=== PATIENT | male | born 1960 | race Caucasian/White ===

== ENCOUNTER 2019-09-15 07:19 | Outpatient (CLI) | payer MEDICAID, SELFPAY ==
--- NOTE | 2019-09-15 07:27 | FL_ITS ---
WS: [id number] BARIUM SWALLOW WITH FLUOROSCOPY HISTORY: MALIGNANT NEOPLASM OF TONSIL COMPARISON: None available. FLUOROSCOPY TIME: .9 minutes. Patient swallowed the barium mixtures without difficulty. There is cricopharyngeal spasm with very mi ld narrowing of the cervical esophagus at the C5-6 level which was intermittent. No significant steno sis or flow limitation. Barium tablet was swallowed without difficulty. Osteophytes encroach upon the posterior cervical esophagus at C5-6. Tertiary contractions in the mid to distal esophagus. Intermi ttently visualized small hiatal hernia. Postsurgical clips are noted within the anterior soft tissues of the neck. FL/FL barium swallow [id number] IMPRESSION: 1. Minimal cricopharyngeal spasm and small vertebral body osteophytes encroach upon the posterior cervical esophagus at C5-6. No significant limitation of sw allowing. 2. Postsurgical changes in the soft tissues of the neck. 3. Mild esophageal dysmotility. 4. Small reducible hiatal hernia.
--- NOTE | 2019-09-15 07:29 | CT_ITS ---
WS: [id number] CT NECK WITH CONTRAST HISTORY: MALIGNANT NEOPLASM OF TONSIL TECHNIQUE: Contiguous 5 mm axial images are performed through the neck with intravenous contrast. Sag ittal and coronal reformats are also submitted. All CT scans at [facility] use at least o ne of these dose optimization techniques: automated exposure control; mA and/or kV adjustment per pat ient size (includes targeted exams where dose is matched to clinical indication); or iterative recons truction. CONTRAST: CONTRAST: Omnipaque 300; 95 mL IV. DLP: 680.83 mGy.cm COMPARISON: 04/06/2019 Prior RIGHT neck soft tissue dissection and tongue base resection. Similar appearance of the soft tissues of the tongue, oropharynx and hypopharynx and larynx since the prior study. No recurrent mass is identified. Epiglottis is normal position. No abnormality at the t ongue base. Torus tubarius and fossa of Rosenmuller and parapharyngeal fat are normal. No significant lymphadenopathy is identified. Thyroid gland and salivary glands are normally enhancing with no masses. No osseous abnormalities. Mild atrophy at the visualized cerebrum with distal carotid arterial calcifications. Mild mucoperiosteal thickening in the paranasal sinuses. No air-fluid levels. Chronic emphysematous changes. No nodules. No adenopathy in the upper mediastinum. CT/CT neck w con* [id number] IMPRESSION: 1. Postoperative changes of right-sided neck dissection and partial resection of the RIGHT tongue base. 2. No recurrent mass or adenopathy.
[2019-09-15] MEDS: iohexol 300 mg/mL 100 mL Btl IV (07:56)
== END 2019-09-15 07:20 | disposition home or self-care (01) ==
PROVIDERS: Family Provider Internal Medicine; Visit Provider Specialist
DX: C09.9 Malignant neoplasm of tonsil, unspecified (principal); R13.19 Other dysphagia; K44.9 Diaphragmatic hernia without obstruction or gangrene; J39.2 Other diseases of pharynx; M25.78 Osteophyte, vertebrae
CPT/HCPCS: 70491; 74220

== ENCOUNTER 2019-10-06 11:52 | Outpatient (CLI) | payer MEDICAID, SELFPAY ==
[2019-10-06 12:42] LABS: Basophils # 0.1 10^3/uL (0.0-0.1); Basophils % 0.9 %; Eosinophils # 0.2 10^3/uL (0.0-0.8); Eosinophils % 1.8 %; Hematocrit 47.4 % (42.0-52.0); Hemoglobin 14.7 g/dL (11.7-16.6); Lymphocytes # 2.9 10^3/uL (0.8-4.8); Lymphocytes % 30.5 %; Mean Corpuscular Hemoglobin 27.5 pg (28.0-34.0); Mean Corpuscular Volume 88.8 fL (80-94); Monocytes # 0.7 10^3/uL (0.2-0.9); Monocytes % 7.3 %; Neutrophils # 5.5 10^3/uL (1.8-7.7); Neutrophils % 58.6 %; Nucleated Red Blood Cells % 0 %; Platelet Count 142 10^3/cmm (130-400); Red Blood Count 5.34 10^6/uL (4.1-5.3); Red Cell Distribution Width 15.6 % (12.1-15.1); White Blood Count 9.4 10^3/uL (4.0-10.0)
[2019-10-06 13:13] LABS: Alanine Aminotransferase 10 U/L (0-41); Alkaline Phosphatase 103 IU/L (40-130); Anion Gap 9.7 (5-19); Aspartate Amino Transferase 18 U/L (0-40); Blood Urea Nitrogen 9 mg/dL (6-20); Calcium 9.5 mg/dL (8.5-10.5); Carbon Dioxide 33 mmol/L (22-29); Chloride 107 mmol/L (98-107); Globulin 3.4 g/dL (1.3-4.6); Glomerular Filtration Rate 56.5 mL/min (90-130); Glucose 57 mg/dL (65-115); Lactate Dehydrogenase 177 U/L (135-225); Osmolality Calculated 294 mOsm/kg (285-295); Potassium 4.7 mmol/L (3.5-5.1); Sodium 145 mmol/L (136-145); Thyroid Stimulating Hormone 4.83 uIU/mL (0.27-4.20); Total Bilirubin 0.3 mg/dL (0.15-1.2); Total Protein 7.4 g/dL (6.6-8.7)
[2019-10-06 14:14] LABS: Free T4 Free Thyroxine 1.49 ng/dL (0.82-1.77)
--- NOTE | 2019-10-09 10:16 | ONC FU_ITS ---
Dr. Ochoa Patient Follow-Up Note Patient: Apolinar Nix Unit #: [id number]: 1960 Dicatated By: Aman Ochoa M.D.Date of Visit:Oct 06, 2019 Onc Med Follow-up/Prog Note Chief Complaint: Head/neck cancer and CLL. 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 He also has small lymphocytic lymphoma/CLL. He had initially presented with a right neck mass in April of 2011. Biopsies at that time were nondiagnostic. He apparently then failed to return for followup. He was seen again in January of 2012 with a new mass in the right neck area. He was then found on laryngoscopy to have squamous cell cancer involving the right tonsil and base of tongue on the right side. Staging PET/CT scan on 04/14/12 showed an FDG positive mass in the right oropharynx measuring 1.3 x 1.7 x 3.5 cm. There were multiple hypermetabolic necrotic right-sided lymph nodes. There were additional smaller nodes on both sides of the neck which were FDG negative. There are mildly prominent axillary lymph nodes bilaterally, FDG negative, without significant mediastinal or hilar adenopathy noted. There was also questionable abdominal adenopathy, metabolically inactive. The possibility of low grade lymphoma was suggested. His subsequent clinical course was complicated by development of pneumonia, but he did recover. Repeat PET/CT scan on 07/05/12 showed interval progression in the area of the right tonsillar mass. A new FDG avid lymph node was noted in the right lower neck. There are multiple mildly FDG avid lymph nodes in the bilateral cervical, axillary, abdominal, and inguinal regions as well as splenomegaly, and those findings were felt to be suspicious for lymphoma. He underwent right tonsillectomy, partial pharyngectomy, right base of tongue resection and right lymph node dissection on 07/06/12. Pathology showed basaloid type nonkeratinizing squamous cell carcinoma. The primary tumor was measured at 1.7 cm. There was staged p T1, but the report indicates there was tumor present at the margins. There was involvement in 2 of 27 lymph nodes. There was extracapsular extension noted. He also underwent biopsies of superficial and deep left axillary lymph nodes. Pathology from both sites was consistent with small lymphocytic lymphoma/chronic lymphocytic leukemia. He was given postoperative chemoradiation. He completed radiation on 10/13/12 to a total dose of 66 Gy. He completed only 2 cycles of cisplatin. His treatment was complicated by poor oral intake and weight loss, despite having nutritional support via PEG tube. He otherwise tolerated the treatment well. He was then followed on observation/expectant management for the head/neck cancer and the chronic lymphocytic leukemia. He had restaging PET/CT on 10/06/2015. It did show fairly extensive lymphadenopathy extending from the cervical through pelvic sidewall basins. The most prominent sites included a portacaval node measuring 6.5 x 3.2 cm and a subcarinal mass measuring 4.4 x 2.2 cm. The findings were felt to be consistent with recurrent low-grade lymphoma. There was no obvious recurrence of the head/neck cancer. During this time he has had follow-up with Dr. Black. He did have an FNA biopsy of one of the posterior cervical lymph nodes, and it did appear to be consistent with lymphoma. He began a trial of therapy with ibrutinib 420 mg daily on 02/25/2016. His white count did show significant increase after starting ibrutinib, as expected. As of 03/17/2016 it peaked at 94,000, but it then began to decline. Other side effects have included fatigue and altered taste. As of his follow-up visit in December 2016 the white count was just slightly elevated at 13,700 with normal hemoglobin at 14.1 g and slightly low platelet count of 119,000. At that point he appeared to have complete resolution of the peripheral lymphadenopathy and splenomegaly. He continued the ibrutinib at 420 mg daily. He remained on observation/expectant management for the tonsillar cancer. He has some underlying COPD and chronic anxiety/depression. He has had some chronic neck and back pain and he has had chronic insomnia. He has known history of hepatitis C. He completed treatment for it in June 2015. He has no other medical illnesses. He had previous surgery for neck fracture in 2006. He had previously smoked one pack of cigarettes daily. He quit in 2011. He has had some alcohol use in the past, but not heavy. INTERIM HISTORY: In June 2018 he underwent excision of the basal cell carcinoma from the left parietal scalp. As of his follow-up visit on 07/22/2018 there was no evidence of recurrence of the head/neck cancer and no evidence of progression of the CLL. He continued treatment with ibrutinib 420 mg daily. He is seen for a scheduled visit. He indicates that he recently had a follow-up visit with Dr. Black and apparently there were abnormalities noted on his surveillance CT scan, such that he is now scheduled to have further evaluation with PET/CT this Thursday. He has been feeling pretty good, though. His energy is been okay. He is doing light work. ECOG score is 1. Appetite is variable, but he has gained weight. He does not have fever or night sweats. He still has dryness in his mouth and throat, but he is able to swallow as long as he drinks and of water. He does not complain of shortness of breath, cough, or chest pain. He still sometimes has nausea and he occasionally has heartburn. Bowel and bladder function have been okay. He continues to have pain in his neck and back, but it is managed adequately with his pain medication. He has had a few headaches. He occasionally has orthostatic lightheadedness. He has no focal neurologic symptoms. Medications: Albuterol 1 (90 mcg/act) Aerosol, solution Inhalation t.i.d., Famotidine 1 Tablet (of 40 mg) Oral daily, Gabapentin 1 (300 mg) Capsule Oral t.i.d., hydrOXYzine HCl 1 Tablet (of 10 mg) Oral t.i.d., Imbruvica 1 Tablet (of 280 mg) Capsule Oral daily, Marinol 1 Tablet (of 5 mg) Capsule Oral b.i.d. PRN, Metoclopramide HCl 1 Tablet (of 10 mg) Oral t.i.d., Morphine Sulfate ER 1 (30 mg) Tablet, controlled release Oral b.i.d., Ondansetron 8 mg (of 8 mg) Tablet Dispersable Oral t.i.d. PRN, Pravastatin Sodium 1 Tablet (of 40 mg) Oral daily, Senna 1 Tablet (of 8.6 mg) 5x/d, Symbicort 1 (160-4.5 mcg/act) Aerosol Inhalation b.i.d. Allergies: No Known Allergies. Review of Systems: Constitutional - His energy is pretty good. He does light work at home. His appetite is variable. He has gained weight. No fever, chills, hot flashes, or night sweats. ECOG score is 1, ENMT - No sinus congestion/drainage. He has dry mouth and throat. He is able to swallow but he has to drink a lot of water. He has had a recent follow-up visit with Dr. Black, Hematologic/Lymphatic - He bruises easily, Respiratory - No shortness of breath. No cough. No pleuritic pain or hemoptysis, Cardiovascular - No angina pain. No palpitations, Gastrointestinal - He still sometimes has nausea. He has had no vomiting. He occasionally has heartburn. No diarrhea or constipation. No blood in the stool or black stools, Genitourinary (M) - No dysuria or hematuria. No urinary frequency. No urgency or incontinence, Musculoskeletal - He continues to have pain in his neck and back. It is managed adequately with medication, Integumentary - No skin complications, Neurologic - He has had a few headaches. He has occasional orthostatic dizziness. No numbness/paresthesias or other focal neurologic symptoms, Psychiatric - No anxiety or depression. No insomnia. Vital Signs: Performed on Oct 06, 2019 13:27 Height - 74.00 in Weight - 186.6 lbs (HIGH) BSA - 2.11 sq.m BMI - 23.96 Temperature - 97.7 F (LOW) Pulse - 56 /min (LOW) Respiration - 18 /min BP - 126/70 mm(hg) O2 Sat - 93 % (LOW) Pain - 4 Physical Examination: Constitutional - He looks pretty good generally, Eyes - Sclerae nonicteric. Conjunctivae clear, ENMT - Mouth is dry. There are no lesions noted in the oral cavity, Neck - No mass or thyromegaly, Hematologic/Lymphatic - There is no cervical, clavicular, or axillary adenopathy, Respiratory - Lungs show some decreased in air movement with slightly coarse breath sounds bilaterally, Cardiovascular - Heart rhythm is regular. There is no murmur, gallop, or rub noted, Abdomen - Soft. Liver is not enlarged. Spleen is not palpable. There is no abdominal mass or ascites noted. There is no inguinal adenopathy, Extremities - No edema. He has extensive purpura, Neurologic - No focal neurologic deficits noted. Lab/Imaging: Test performed on Oct 06, 2019 12:05 LDH (Total) 177 U/L Sodium 145 mmol/L T4, Free 1.49 ng/dL TSH 4.83 uIU/mL Potassium 4.7 mmol/L Chloride 107 mmol/L CO2 33 mmol/L Anion Gap 9.7 BUN 9 mg/dL Creatinine 1.3 mg/dL Cr Clearance (Est) 73.25 mL/min eGFR 56.5 mL/min Glucose 57 mg/dL Calcium 9.5 mg/dL Protein, Total 7.4 g/dL Albumin 4.0 g/dL Globulin 3.4 g/dL Bilirubin, Total 0.3 mg/dL ALT (SGPT) 10 U/L AST (SGOT) 18 U/L Alkaline Phosphatase 103 IU/L WBC 9.4 10 3/uL RBC 5.34 10 6/uL HGB 14.7 g/dL HCT 47.4 % MCV 88.8 fL MCH 27.5 pg MCHC 31.0 g/dL RDW 15.6 % Platelet Count 142 10 3/cmm MPV 12.0 fL Neutrophils 5.5 10 3/uL Lymphocytes 2.9 10 3/uL Monocytes 0.7 10 3/uL Eosinophils 0.2 10 3/uL Basophils 0.1 10 3/uL Neutrophil % 58.6 % Lymphocyte % 30.5 % Monocyte % 7.3 % Eosinophil % 1.8 % Basophils % 0.9 % Impression: 1. The patient has stage ISHA squamous cell carcinoma of the right tonsil/right base of tongue. He underwent surgical resection in June 2012, and he completed postop chemoradiation in September 2012 to a total radiation dose of 66 Gy. He has been on observation for the head/neck cancer following completion of the chemoradiation. Thus far there has been no evidence of recurrence. 2. He also was found on lymph node biopsy to have evidence of chronic lymphocytic leukemia/well-differentiated lymphoma. He had associated peripheral lymphadenopathy and he also had leukocytosis and mild splenomegaly. During follow-up, he was noted to have progression of the lymphoproliferative disorder. On 02/25/2016 he began a trial of ibrutinib at 420 mg daily. 3. He has additional history of hepatitis C for which he completed treatment in June 2015. He had a very good clinical response to the ibrutinib. Initially his lymphocyte count had increased, as expected, but it subsequently declined, and he also had resolution of peripheral lymphadenopathy and splenomegaly. He complained of mild fatigue with the ibrutinib, and he also reported some anorexia and altered taste. He has otherwise tolerated it well. In June 2018 he underwent excision of a basal cell carcinoma from the left parietal scalp. At that point he was otherwise remained stable clinically and he continued treatment with ibrutinib 420 mg daily. During subsequent follow-up continued to have some difficulty swallowing. He developed fairly extensive purpura on both arms, which I assumed to be related to the ibrutinib. As of his follow-up visit on 07/06/2019 the ibrutinib dosage was decreased to 280 mg daily. At that point he also started levothyroxine for hypothyroidism. Overall, though, he appeared to be doing well clinically with no evidence of progression of the CLL and no obvious recurrence of the head/neck cancer. At this point his clinical status appears stable, though he apparently did have some abnormalities noted on his recent surveillance CT scan with Dr. Black, and he is now scheduled for further evaluation with PET/CT. Plan: He will continue treatment with ibrutinib at 280 mg daily for the CLL. He continues levothyroxine 50 mcg daily. He will have further evaluation as indicated, depending on the PET/CT findings. I will tentatively plan a follow-up visit in 3 months. Signed By: Aman Ochoa M.D. <<Signature on File>>
== END 2019-10-06 11:53 | disposition home or self-care (01) ==
LOC: ONCMED 11:55
PROVIDERS: Family Provider Internal Medicine; PCP Internal Medicine; Visit Provider Internal Medicine Medical Oncology
DX: C91.10 Chronic lymphocytic leukemia of B-cell type not having achieved remission (principal); J44.9 Chronic obstructive pulmonary disease, unspecified; F41.8 Other specified anxiety disorders; G47.00 Insomnia, unspecified; G89.29 Other chronic pain; M54.2 Cervicalgia; E03.9 Hypothyroidism, unspecified; Z79.899 Other long term (current) drug therapy; Z79.51 Long term (current) use of inhaled steroids; Z87.01 Personal history of pneumonia (recurrent); Z92.3 Personal history of irradiation; Z92.21 Personal history of antineoplastic chemotherapy; Z86.19 Personal history of other infectious and parasitic diseases; Z87.891 Personal history of nicotine dependence; Z85.828 Personal history of other malignant neoplasm of skin; Z85.89 Personal history of malignant neoplasm of other organs and systems
CPT/HCPCS: 36415; 80053; 83615; 84439; 84443; 85025; 99214

== ENCOUNTER 2020-01-05 09:17 | Outpatient (CLI) | payer MEDICAID, SELFPAY ==
[2020-01-05 09:57] LABS: Basophils # 0.1 10^3/uL (0.0-0.1); Basophils % 0.8 %; Eosinophils # 0.1 10^3/uL (0.0-0.8); Eosinophils % 1.2 %; Hematocrit 44.9 % (42.0-52.0); Hemoglobin 14.3 g/dL (11.7-16.6); Lymphocytes # 1.7 10^3/uL (0.8-4.8); Lymphocytes % 22.6 %; Mean Corpuscular HGB Conc 31.8 g/dL (30.0-36.0); Mean Corpuscular Hemoglobin 28.4 pg (28.0-34.0); Mean Corpuscular Volume 89.3 fL (80-94); Mean Platelet Volume 12.2 fL (7.4-10.4); Monocytes # 0.6 10^3/uL (0.2-0.9); Monocytes % 7.3 %; Neutrophils # 5.1 10^3/uL (1.8-7.7); Neutrophils % 66.4 %; Nucleated Red Blood Cells % 0 %; Platelet Count 117 10^3/cmm (130-400); Red Blood Count 5.03 10^6/uL (4.1-5.3); Red Cell Distribution Width 15.1 % (12.1-15.1); White Blood Count 7.6 10^3/uL (4.0-10.0)
[2020-01-05 10:24] LABS: Alanine Aminotransferase 10 U/L (0-41); Alkaline Phosphatase 87 IU/L (40-130); Anion Gap 14.4 (5-19); Aspartate Amino Transferase 17 U/L (0-40); Blood Urea Nitrogen 10 mg/dL (6-20); Calcium 9.3 mg/dL (8.5-10.5); Carbon Dioxide 27 mmol/L (22-29); Chloride 104 mmol/L (98-107); Globulin 2.7 g/dL (1.3-4.6); Glomerular Filtration Rate 56.5 mL/min (90-130); Glucose 92 mg/dL (65-115); Lactate Dehydrogenase 168 U/L (135-225); Osmolality Calculated 288 mOsm/kg (285-295); Potassium 4.4 mmol/L (3.5-5.1); Sodium 141 mmol/L (136-145); Total Bilirubin 0.3 mg/dL (0.15-1.2); Total Protein 6.7 g/dL (6.6-8.7)
--- NOTE | 2020-01-09 06:58 | ONC FU_ITS ---
Dr. Ochoa Patient Follow-Up Note Patient: Apolinar Nix Unit #: [id number]: 1960 Dicatated By: Aman Ochoa M.D.Date of Visit:Jan 05, 2020 Onc Med Follow-up/Prog Note Chief Complaint: Head/neck cancer and CLL. 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 He also has small lymphocytic lymphoma/CLL. He had initially presented with a right neck mass in April of 2011. Biopsies at that time were nondiagnostic. He apparently then failed to return for followup. He was seen again in January of 2012 with a new mass in the right neck area. He was then found on laryngoscopy to have squamous cell cancer involving the right tonsil and base of tongue on the right side. Staging PET/CT scan on 04/14/12 showed an FDG positive mass in the right oropharynx measuring 1.3 x 1.7 x 3.5 cm. There were multiple hypermetabolic necrotic right-sided lymph nodes. There were additional smaller nodes on both sides of the neck which were FDG negative. There are mildly prominent axillary lymph nodes bilaterally, FDG negative, without significant mediastinal or hilar adenopathy noted. There was also questionable abdominal adenopathy, metabolically inactive. The possibility of low grade lymphoma was suggested. His subsequent clinical course was complicated by development of pneumonia, but he did recover. Repeat PET/CT scan on 07/05/12 showed interval progression in the area of the right tonsillar mass. A new FDG avid lymph node was noted in the right lower neck. There are multiple mildly FDG avid lymph nodes in the bilateral cervical, axillary, abdominal, and inguinal regions as well as splenomegaly, and those findings were felt to be suspicious for lymphoma. He underwent right tonsillectomy, partial pharyngectomy, right base of tongue resection and right lymph node dissection on 07/06/12. Pathology showed basaloid type nonkeratinizing squamous cell carcinoma. The primary tumor was measured at 1.7 cm. There was staged p T1, but the report indicates there was tumor present at the margins. There was involvement in 2 of 27 lymph nodes. There was extracapsular extension noted. He also underwent biopsies of superficial and deep left axillary lymph nodes. Pathology from both sites was consistent with small lymphocytic lymphoma/chronic lymphocytic leukemia. He was given postoperative chemoradiation. He completed radiation on 10/13/12 to a total dose of 66 Gy. He completed only 2 cycles of cisplatin. His treatment was complicated by poor oral intake and weight loss, despite having nutritional support via PEG tube. He otherwise tolerated the treatment well. He was then followed on observation/expectant management for the head/neck cancer and the chronic lymphocytic leukemia. He had restaging PET/CT on 10/06/2015. It did show fairly extensive lymphadenopathy extending from the cervical through pelvic sidewall basins. The most prominent sites included a portacaval node measuring 6.5 x 3.2 cm and a subcarinal mass measuring 4.4 x 2.2 cm. The findings were felt to be consistent with recurrent low-grade lymphoma. There was no obvious recurrence of the head/neck cancer. During this time he has had follow-up with Dr. Black. He did have an FNA biopsy of one of the posterior cervical lymph nodes, and it did appear to be consistent with lymphoma. He began a trial of therapy with ibrutinib 420 mg daily on 02/25/2016. His white count did show significant increase after starting ibrutinib, as expected. As of 03/17/2016 it peaked at 94,000, but it then began to decline. Other side effects have included fatigue and altered taste. As of his follow-up visit in December 2016 the white count was just slightly elevated at 13,700 with normal hemoglobin at 14.1 g and slightly low platelet count of 119,000. At that point he appeared to have complete resolution of the peripheral lymphadenopathy and splenomegaly. He continued the ibrutinib at 420 mg daily. He remained on observation/expectant management for the tonsillar cancer. He has some underlying COPD and chronic anxiety/depression. He has had some chronic neck and back pain and he has had chronic insomnia. He has known history of hepatitis C. He completed treatment for it in June 2015. He has no other medical illnesses. He had previous surgery for neck fracture in 2006. In June 2018 he underwent excision of the basal cell carcinoma from the left parietal scalp. He had previously smoked one pack of cigarettes daily. He quit in 2011. He has had some alcohol use in the past, but not heavy. INTERIM HISTORY: As of his follow-up visit in June 2019 I had opted to reduce the ibrutinib dosage to 280 mg daily. At that point there was no evidence of recurrence of the head/neck cancer and no evidence of progression of the CLL. Restaging PET/CT on 10/08/2019 showed no evidence for recurrent or residual malignancy. He continued treatment with ibrutinib 280 mg daily. He is seen for a scheduled visit. He has been feeling good generally. He still has some fatigue, but overall his energy is better. His ECOG score is 1. He has good appetite. He has no fever or night sweats. He still sometimes has difficulty swallowing, but it is usually okay as long as he drinks water. He has had some soreness in his throat. He has good appetite. He has no fever or night sweats. He has no shortness of breath, cough, or chest pain. He has no GI or complaints. He has chronic pain, mainly in the neck/shoulder area and back. He has no focal neurologic symptoms. Medications: Albuterol 1 (90 mcg/act) Aerosol, solution Inhalation t.i.d., Famotidine 1 Tablet (of 40 mg) Oral daily, Gabapentin 1 (300 mg) Capsule Oral t.i.d., hydrOXYzine HCl 1 Tablet (of 10 mg) Oral t.i.d., Imbruvica 1 Tablet (of 280 mg) Capsule Oral daily, Levothyroxine Sodium 1 Tablet (of 50 mcg) Oral daily, Marinol 1 Tablet (of 5 mg) Capsule Oral b.i.d. PRN, Metoclopramide HCl 1 Tablet (of 10 mg) Oral t.i.d., Mirtazapine 1 (45 mg) Tablet Oral at bedtime, Morphine Sulfate ER 1 (30 mg) Tablet, controlled release Oral b.i.d., Ondansetron 8 mg (of 8 mg) Tablet Dispersable Oral t.i.d. PRN, Pravastatin Sodium 1 Tablet (of 40 mg) Oral daily, Senna 1 Tablet (of 8.6 mg) 5x/d, Symbicort 1 (160-4.5 mcg/act) Aerosol Inhalation b.i.d. Allergies: No Known Allergies. Review of Systems: Constitutional - His energy is better. He is able to do some light work. Appetite is good and weight is stable. No fever, night sweats, or hot flashes. ECOG score is 1, ENMT - No sinus congestion/drainage. No mouth sores. No sore throat. He has some difficulty swallowing, Hematologic/Lymphatic - He bruises very easily. No other bleeding, Respiratory - No shortness of breath. No cough. No pleuritic pain or hemoptysis, Cardiovascular - No angina pain. No palpitations, Gastrointestinal - No nausea or vomiting. No heartburn or acid reflux. No diarrhea or constipation. No blood in the stool or black stools, Genitourinary (M) - No dysuria or hematuria. No urinary frequency. No urgency or incontinence, Musculoskeletal - He has pain in his neck and shoulder area, and he has back pain. It is adequately managed with medication, Integumentary - No skin rash, Neurologic - No headache. He sometimes has dizziness. No numbness or tingling. No other focal neurologic symptoms, Psychiatric - He sometimes gets anxious. No depression. No insomnia. Vital Signs: Performed on Jan 05, 2020 11:16 Height - 74.00 in Weight - 185.8 lbs (LOW) BSA - 2.11 sq.m BMI - 23.86 Temperature - 98.0 F (LOW) Pulse - 53 /min (LOW) Respiration - 20 /min BP - 126/73 mm(hg) O2 Sat - 95 % (LOW) Pain - 4 Physical Examination: Constitutional - He looks pretty good generally, Eyes - Sclerae nonicteric. Conjunctivae clear, ENMT - Mouth is dry. There are no lesions noted in the oral cavity, Hematologic/Lymphatic - There is no cervical, clavicular, or axillary adenopathy, Respiratory - Lungs sound clear with diminished air movement bilaterally, Cardiovascular - Heart rhythm is regular with a bradycardia. There is no murmur, gallop, or rub noted, Abdomen - Soft. Liver is not enlarged. Spleen is not palpable. There is no abdominal mass or ascites noted. There is no inguinal adenopathy, Extremities - No edema. He has extensive purpura, Neurologic - No focal neurologic deficits noted. Lab/Imaging: Test performed on Jan 05, 2020 09:34 LDH (Total) 168 U/L Sodium 141 mmol/L Potassium 4.4 mmol/L Chloride 104 mmol/L CO2 27 mmol/L Anion Gap 14.4 BUN 10 mg/dL Creatinine 1.3 mg/dL Cr Clearance (Est) 72.93 mL/min eGFR 56.5 mL/min Glucose 92 mg/dL Calcium 9.3 mg/dL Protein, Total 6.7 g/dL Albumin 4.0 g/dL Globulin 2.7 g/dL Bilirubin, Total 0.3 mg/dL ALT (SGPT) 10 U/L AST (SGOT) 17 U/L Alkaline Phosphatase 87 IU/L WBC 7.6 10 3/uL RBC 5.03 10 6/uL HGB 14.3 g/dL HCT 44.9 % MCV 89.3 fL MCH 28.4 pg MCHC 31.8 g/dL RDW 15.1 % Platelet Count 117 10 3/cmm MPV 12.2 fL Neutrophils 5.1 10 3/uL Lymphocytes 1.7 10 3/uL Monocytes 0.6 10 3/uL Eosinophils 0.1 10 3/uL Basophils 0.1 10 3/uL Neutrophil % 66.4 % Lymphocyte % 22.6 % Monocyte % 7.3 % Eosinophil % 1.2 % Basophils % 0.8 % NRBC % 0 % Impression: 1. The patient has stage ISHA squamous cell carcinoma of the right tonsil/right base of tongue. He underwent surgical resection in June 2012, and he completed postop chemoradiation in September 2012 to a total radiation dose of 66 Gy. He has been on observation for the head/neck cancer following completion of the chemoradiation. Thus far there has been no evidence of recurrence. 2. He also was found on lymph node biopsy to have evidence of chronic lymphocytic leukemia/well-differentiated lymphoma. He had associated peripheral lymphadenopathy and he also had leukocytosis and mild splenomegaly. During follow-up, he was noted to have progression of the lymphoproliferative disorder. On 02/25/2016 he began a trial of ibrutinib at 420 mg daily. 3. He has additional history of hepatitis C for which he completed treatment in June 2015. He had a very good clinical response to the ibrutinib. Initially his lymphocyte count had increased, as expected, but it subsequently declined, and he also had resolution of peripheral lymphadenopathy and splenomegaly. He complained of mild fatigue with the ibrutinib, and he also reported some anorexia and altered taste. He has otherwise tolerated it well. In June 2018 he underwent excision of a basal cell carcinoma from the left parietal scalp. At that point he was otherwise remained stable clinically and he continued treatment with ibrutinib 420 mg daily. During subsequent follow-up continued to have some difficulty swallowing. He developed fairly extensive purpura on both arms, which I assumed to be related to the ibrutinib. As of his follow-up visit on 07/06/2019 the ibrutinib dosage was decreased to 280 mg daily. At that point he also started levothyroxine for hypothyroidism. During subsequent follow-up he had been feeling somewhat better generally. Restaging PET/CT in September 2019 showed no evidence of residual or recurrent malignancy. Overall, he appears to be doing well clinically with no evidence of disease progression. Plan: He will continue treatment with ibrutinib at 280 mg daily for the CLL. I will see him again in 3 months. Signed By: Aman Ochoa M.D. <<Signature on File>>
== END 2020-01-05 09:18 | disposition home or self-care (01) ==
PROVIDERS: PCP Internal Medicine; Visit Provider Internal Medicine Medical Oncology
DX: C91.10 Chronic lymphocytic leukemia of B-cell type not having achieved remission (principal); Z85.818 Personal history of malignant neoplasm of other sites of lip, oral cavity, and pharynx; Z85.828 Personal history of other malignant neoplasm of skin; Z92.3 Personal history of irradiation; Z79.899 Other long term (current) drug therapy
CPT/HCPCS: 80053; 83615; 85025; 99214

== ENCOUNTER 2020-04-12 14:55 | Outpatient (CLI) | payer MEDICAID, SELFPAY ==
[2020-04-12 15:28] LABS: Basophils # 0.1 10^3/uL (0.0-0.1); Eosinophils # 0.1 10^3/uL (0.0-0.8); Eosinophils % 0.7 %; Hematocrit 45.6 % (42.0-52.0); Hemoglobin 14.5 g/dL (11.7-16.6); Lymphocytes # 2.5 10^3/uL (0.8-4.8); Lymphocytes % 24.3 %; Mean Corpuscular HGB Conc 31.8 g/dL (30.0-36.0); Mean Corpuscular Hemoglobin 28.7 pg (28.0-34.0); Mean Corpuscular Volume 90.3 fL (80-94); Mean Platelet Volume 11.8 fL (7.4-10.4); Monocytes # 0.6 10^3/uL (0.2-0.9); Monocytes % 6.2 %; Neutrophils # 6.58 10^3/uL (1.8-7.7); Neutrophils % 65.2 %; Nucleated Red Blood Cells % 0 %; Platelet Count 140 10^3/cmm (130-400); Red Blood Count 5.05 10^6/uL (4.1-5.3); Red Cell Distribution Width 14.5 % (12.1-15.1); White Blood Count 10.1 10^3/uL (4.0-10.0)
[2020-04-12 16:16] LABS: Alanine Aminotransferase 12 U/L (0-41); Albumin Level 4.2 g/dL (3.5-5.2); Alkaline Phosphatase 103 IU/L (40-130); Anion Gap 14.3 (5-19); Aspartate Amino Transferase 19 U/L (0-40); Blood Urea Nitrogen 9 mg/dL (8-23); Calcium 9.2 mg/dL (8.5-10.5); Carbon Dioxide 28 mmol/L (22-29); Chloride 104 mmol/L (98-107); Globulin 2.9 g/dL (1.3-4.6); Glomerular Filtration Rate 44.3 mL/min (90-130); Glucose 66 mg/dL (65-115); Osmolality Calculated 291 mOsm/kg (285-295); Potassium 4.3 mmol/L (3.5-5.1); Sodium 142 mmol/L (136-145); Thyroid Stimulating Hormone 5.63 uIU/mL (0.27-4.20); Total Bilirubin 0.3 mg/dL (0.15-1.2); Total Protein 7.1 g/dL (6.6-8.7)
[2020-04-12 16:36] LABS: Lactate Dehydrogenase 224 U/L (135-225)
--- NOTE | 2020-04-12 19:55 | ONC FU_ITS ---
Dr. Ochoa Patient Follow-Up Note Patient: Apolinar Nix Unit #: [id number]: 1960 Dicatated By: Aman Ochoa M.D.Date of Visit:Apr 12, 2020 Onc Med Follow-up/Prog Note Chief Complaint: Head/neck cancer and CLL. 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 He also has small lymphocytic lymphoma/CLL. He had initially presented with a right neck mass in April of 2011. Biopsies at that time were nondiagnostic. He apparently then failed to return for followup. He was seen again in January of 2012 with a new mass in the right neck area. He was then found on laryngoscopy to have squamous cell cancer involving the right tonsil and base of tongue on the right side. Staging PET/CT scan on 04/14/12 showed an FDG positive mass in the right oropharynx measuring 1.3 x 1.7 x 3.5 cm. There were multiple hypermetabolic necrotic right-sided lymph nodes. There were additional smaller nodes on both sides of the neck which were FDG negative. There are mildly prominent axillary lymph nodes bilaterally, FDG negative, without significant mediastinal or hilar adenopathy noted. There was also questionable abdominal adenopathy, metabolically inactive. The possibility of low grade lymphoma was suggested. His subsequent clinical course was complicated by development of pneumonia, but he did recover. Repeat PET/CT scan on 07/05/12 showed interval progression in the area of the right tonsillar mass. A new FDG avid lymph node was noted in the right lower neck. There are multiple mildly FDG avid lymph nodes in the bilateral cervical, axillary, abdominal, and inguinal regions as well as splenomegaly, and those findings were felt to be suspicious for lymphoma. He underwent right tonsillectomy, partial pharyngectomy, right base of tongue resection and right lymph node dissection on 07/06/12. Pathology showed basaloid type nonkeratinizing squamous cell carcinoma. The primary tumor was measured at 1.7 cm. There was staged p T1, but the report indicates there was tumor present at the margins. There was involvement in 2 of 27 lymph nodes. There was extracapsular extension noted. He also underwent biopsies of superficial and deep left axillary lymph nodes. Pathology from both sites was consistent with small lymphocytic lymphoma/chronic lymphocytic leukemia. He was given postoperative chemoradiation. He completed radiation on 10/13/12 to a total dose of 66 Gy. He completed only 2 cycles of cisplatin. His treatment was complicated by poor oral intake and weight loss, despite having nutritional support via PEG tube. He otherwise tolerated the treatment well. He was then followed on observation/expectant management for the head/neck cancer and the chronic lymphocytic leukemia. He had restaging PET/CT on 10/06/2015. It did show fairly extensive lymphadenopathy extending from the cervical through pelvic sidewall basins. The most prominent sites included a portacaval node measuring 6.5 x 3.2 cm and a subcarinal mass measuring 4.4 x 2.2 cm. The findings were felt to be consistent with recurrent low-grade lymphoma. There was no obvious recurrence of the head/neck cancer. During this time he has had follow-up with Dr. Black. He did have an FNA biopsy of one of the posterior cervical lymph nodes, and it did appear to be consistent with lymphoma. He began a trial of therapy with ibrutinib 420 mg daily on 02/25/2016. His white count did show significant increase after starting ibrutinib, as expected. As of 03/17/2016 it peaked at 94,000, but it then began to decline. Other side effects have included fatigue and altered taste. As of his follow-up visit in December 2016 the white count was just slightly elevated at 13,700 with normal hemoglobin at 14.1 g and slightly low platelet count of 119,000. At that point he appeared to have complete resolution of the peripheral lymphadenopathy and splenomegaly. He continued the ibrutinib at 420 mg daily. He remained on observation/expectant management for the tonsillar cancer. He has some underlying COPD and chronic anxiety/depression. He has had some chronic neck and back pain and he has had chronic insomnia. He has known history of hepatitis C. He completed treatment for it in June 2015. He has no other medical illnesses. He had previous surgery for neck fracture in 2006. In June 2018 he underwent excision of the basal cell carcinoma from the left parietal scalp. He had previously smoked one pack of cigarettes daily. He quit in 2011. He has had some alcohol use in the past, but not heavy. INTERIM HISTORY: As of his follow-up visit in June 2019 I had opted to reduce the ibrutinib dosage to 280 mg daily. At that point there was no evidence of recurrence of the head/neck cancer and no evidence of progression of the CLL. Restaging PET/CT on 10/08/2019 showed no evidence for recurrent or residual malignancy. He continued treatment with ibrutinib 280 mg daily. He is seen for a scheduled visit. He has been feeling pretty good generally. He still has limited activity, but he is able to do light work. ECOG score is 1. He has good appetite. He has no fever or night sweats. He reports having some issues with his throat, mainly hurting after he swallows quite a bit. He really does not have difficulty swallowing, though. He has no shortness of breath, cough, or chest pain. He currently has no GI or complaints. He has chronic pain. It is mostly now in the neck and shoulders. It is pretty well controlled with his medication. He does not complain of headache. He has lightheadedness if he gets up too fast. He has no focal neurologic symptoms. He does have a lot of bruising. He has had no other bleeding, though. Medications: Albuterol 1 (90 mcg/act) Aerosol, solution Inhalation t.i.d., Famotidine 1 Tablet (of 40 mg) Oral daily, Gabapentin 1 (300 mg) Capsule Oral t.i.d., hydrOXYzine HCl 1 Tablet (of 10 mg) Oral t.i.d., Imbruvica 1 Tablet (of 280 mg) Capsule Oral daily, Levothyroxine Sodium 1 Tablet (of 50 mcg) Oral daily, Marinol 1 Tablet (of 5 mg) Capsule Oral b.i.d. PRN, Metoclopramide HCl 1 Tablet (of 10 mg) Oral t.i.d., Mirtazapine 1 (45 mg) Tablet Oral at bedtime, Morphine Sulfate ER 1 (30 mg) Tablet, controlled release Oral b.i.d., Ondansetron 8 mg (of 8 mg) Tablet Dispersable Oral t.i.d. PRN, Pravastatin Sodium 1 Tablet (of 40 mg) Oral daily, Senna 1 Tablet (of 8.6 mg) 5x/d, Symbicort 1 (160-4.5 mcg/act) Aerosol Inhalation b.i.d. Allergies: No Known Allergies. Review of Systems: Constitutional - He has been feeling pretty good generally, though he still has limited activity. Appetite is good and weight is stable. No fever, night sweats, or hot flashes. ECOG score is 1, ENMT - No sinus congestion/drainage. No mouth sores. No difficulty swallowing, but he does report that he has some hurting in his throat after he has been swallowing quite a bit, Hematologic/Lymphatic - He has a lot of bruising but not other bleeding, Respiratory - No shortness of breath. No cough. No pleuritic pain or hemoptysis, Cardiovascular - No angina pain. No palpitations, Gastrointestinal - No nausea or vomiting. He recently had heartburn, but it was associated with eating chili. No diarrhea or constipation. No blood in the stool or black stools, Genitourinary (M) - No dysuria or hematuria. No urinary frequency. No urgency or incontinence, Musculoskeletal - He has chronic pain. It is mostly now in the neck and shoulders. It is pretty well controlled with medication, Integumentary - No skin rash, Neurologic - No headache. He has lightheadedness if he gets up too fast. No numbness or tingling. No other focal neurologic symptoms, Psychiatric - No anxiety or depression. No insomnia. Vital Signs: Performed on Apr 12, 2020 16:18 Height - 74.00 in Weight - 188.6 lbs (HIGH) BSA - 2.12 sq.m BMI - 24.21 Temperature - 97.6 F (LOW) Pulse - 56 /min (LOW) Respiration - 20 /min BP - 147/86 mm(hg) (HIGH) O2 Sat - 95 % (LOW) Pain - 4 Physical Examination: Constitutional - He looks pretty good generally, Eyes - Sclerae nonicteric. Conjunctivae clear, ENMT - Mouth is dry. There are no lesions noted in the oral cavity, Hematologic/Lymphatic - There is no cervical, clavicular, or axillary adenopathy noted, Respiratory - Lungs sound clear with diminished air movement bilaterally, Cardiovascular - Heart rhythm is regular. There is no murmur, gallop, or rub noted, Abdomen - Soft. Liver is not enlarged. Spleen is not palpable. There is no abdominal mass or ascites noted. There is no inguinal adenopathy, Extremities - No edema. He has extensive purpura on the arms, Neurologic - No focal neurologic deficits noted. Lab/Imaging: Test performed on Apr 12, 2020 15:05 LDH (Total) 224 U/L Sodium 142 mmol/L TSH 5.63 uIU/mL Potassium 4.3 mmol/L Chloride 104 mmol/L CO2 28 mmol/L Anion Gap 14.3 BUN 9 mg/dL Creatinine 1.6 mg/dL Cr Clearance (Est) 59.4100 mL/min eGFR 44.3 mL/min Glucose 66 mg/dL Osmolality - Calculated 291 mOsm/kg Calcium 9.2 mg/dL Protein, Total 7.1 g/dL Albumin 4.2 g/dL Globulin 2.9 g/dL Bilirubin, Total 0.3 mg/dL ALT (SGPT) 12 U/L AST (SGOT) 19 U/L Alkaline Phosphatase 103 IU/L WBC 10.1 10 3/uL RBC 5.05 10 6/uL HGB 14.5 g/dL HCT 45.6 % MCV 90.3 fL MCH 28.7 pg MCHC 31.8 g/dL RDW 14.5 % Platelet Count 140 10 3/cmm MPV 11.8 fL Neutrophils 6.58 10 3/uL Lymphocytes 2.5 10 3/uL Monocytes 0.6 10 3/uL Eosinophils 0.1 10 3/uL Basophils 0.1 10 3/uL Neutrophil % 65.2 % Lymphocyte % 24.3 % Monocyte % 6.2 % Eosinophil % 0.7 % Basophils % 1.0 % NRBC % 0 % Impression: 1. The patient has stage ISHA squamous cell carcinoma of the right tonsil/right base of tongue. He underwent surgical resection in June 2012, and he completed postop chemoradiation in September 2012 to a total radiation dose of 66 Gy. He has been on observation for the head/neck cancer following completion of the chemoradiation. Thus far there has been no evidence of recurrence. 2. He also was found on lymph node biopsy to have evidence of chronic lymphocytic leukemia/well-differentiated lymphoma. He had associated peripheral lymphadenopathy and he also had leukocytosis and mild splenomegaly. During follow-up, he was noted to have progression of the lymphoproliferative disorder. On 02/25/2016 he began a trial of ibrutinib at 420 mg daily. 3. He has additional history of hepatitis C for which he completed treatment in June 2015. He had a very good clinical response to the ibrutinib. Initially his lymphocyte count had increased, as expected, but it subsequently declined, and he also had resolution of peripheral lymphadenopathy and splenomegaly. He complained of mild fatigue with the ibrutinib, and he also reported some anorexia and altered taste. He has otherwise tolerated it well. In June 2018 he underwent excision of a basal cell carcinoma from the left parietal scalp. At that point he was otherwise remained stable clinically and he continued treatment with ibrutinib 420 mg daily. During subsequent follow-up continued to have some difficulty swallowing. He developed fairly extensive purpura on both arms, which I assumed to be related to the ibrutinib. As of his follow-up visit on 07/06/2019 the ibrutinib dosage was decreased to 280 mg daily. At that point he also started levothyroxine for hypothyroidism. Restaging PET/CT in September 2019 showed no evidence of residual or recurrent malignancy. He continued ibrutinib at 280 mg daily, and he continued on observation for the tonsillar cancer. During subsequent follow-up he has been doing well clinically. He has continued to tolerate treatment well, and thus far there has been no evidence of recurrence of either malignancy. Plan: He continues treatment with ibrutinib at 280 mg daily for the CLL. He remains on observation/expectant management for the head/neck cancer. He will be scheduled for a follow-up visit in 3 months. Signed By: Aman Ochoa M.D. <<Signature on File>>
== END 2020-04-12 14:56 | disposition home or self-care (01) ==
LOC: ONCMED 14:57
PROVIDERS: PCP Internal Medicine; Visit Provider Internal Medicine Medical Oncology
DX: C91.10 Chronic lymphocytic leukemia of B-cell type not having achieved remission (principal); E03.9 Hypothyroidism, unspecified; Z85.818 Personal history of malignant neoplasm of other sites of lip, oral cavity, and pharynx; Z85.828 Personal history of other malignant neoplasm of skin; Z92.3 Personal history of irradiation; Z79.899 Other long term (current) drug therapy; Z86.19 Personal history of other infectious and parasitic diseases
CPT/HCPCS: 80053; 83615; 84443; 85025; 99214

== ENCOUNTER 2020-07-30 12:07 | Outpatient (CLI) | payer MEDICAID, SELFPAY ==
[2020-07-30 12:45] LABS: Basophils # 0.1 10^3/uL (0.0-0.1); Basophils % 0.7 %; Eosinophils % 0.2 %; Hematocrit 47.9 % (42.0-52.0); Hemoglobin 15.1 g/dL (11.7-16.6); Lymphocytes # 2.1 10^3/uL (0.8-4.8); Lymphocytes % 24.2 %; Mean Corpuscular HGB Conc 31.5 g/dL (30.0-36.0); Mean Corpuscular Hemoglobin 28.4 pg (28.0-34.0); Mean Corpuscular Volume 90.2 fL (80-94); Mean Platelet Volume 11.7 fL (7.4-10.4); Monocytes # 0.5 10^3/uL (0.2-0.9); Neutrophils # 5.74 10^3/uL (1.8-7.7); Neutrophils % 67.3 %; Nucleated Red Blood Cells % 0 %; Platelet Count 144 10^3/cmm (130-400); Red Blood Count 5.31 10^6/uL (4.1-5.3); Red Cell Distribution Width 14.6 % (12.1-15.1); White Blood Count 8.5 10^3/uL (4.0-10.0)
[2020-07-30 13:24] LABS: Alanine Aminotransferase 9 U/L (0-41); Albumin Level 4.2 g/dL (3.5-5.2); Alkaline Phosphatase 104 IU/L (40-130); Anion Gap 12.6 (5-19); Aspartate Amino Transferase 15 U/L (0-40); Blood Urea Nitrogen 11 mg/dL (8-23); Calcium 9.4 mg/dL (8.5-10.5); Carbon Dioxide 29 mmol/L (22-29); Chloride 102 mmol/L (98-107); Globulin 2.7 g/dL (1.3-4.6); Glomerular Filtration Rate 61.8 mL/min (90-130); Glucose 80 mg/dL (65-115); Lactate Dehydrogenase 175 U/L (135-225); Osmolality Calculated 286 mOsm/kg (285-295); Potassium 4.6 mmol/L (3.5-5.1); Sodium 139 mmol/L (136-145); Thyroid Stimulating Hormone 4.46 uIU/mL (0.27-4.20); Total Bilirubin 0.3 mg/dL (0.15-1.2); Total Protein 6.9 g/dL (6.6-8.7)
--- NOTE | 2020-08-03 18:42 | ONC FU_ITS ---
Dr. Ochoa Patient Follow-Up Note Patient: Apolinar Nix Unit #: [id number]: 1960 Dicatated By: Aman Ochoa M.D.Date of Visit:Jul 30, 2020 Onc Med Follow-up/Prog Note Chief Complaint: Head/neck cancer and CLL. 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 He also has small lymphocytic lymphoma/CLL. He had initially presented with a right neck mass in April of 2011. Biopsies at that time were nondiagnostic. He apparently then failed to return for followup. He was seen again in January of 2012 with a new mass in the right neck area. He was then found on laryngoscopy to have squamous cell cancer involving the right tonsil and base of tongue on the right side. Staging PET/CT scan on 04/14/12 showed an FDG positive mass in the right oropharynx measuring 1.3 x 1.7 x 3.5 cm. There were multiple hypermetabolic necrotic right-sided lymph nodes. There were additional smaller nodes on both sides of the neck which were FDG negative. There are mildly prominent axillary lymph nodes bilaterally, FDG negative, without significant mediastinal or hilar adenopathy noted. There was also questionable abdominal adenopathy, metabolically inactive. The possibility of low grade lymphoma was suggested. His subsequent clinical course was complicated by development of pneumonia, but he did recover. Repeat PET/CT scan on 07/05/12 showed interval progression in the area of the right tonsillar mass. A new FDG avid lymph node was noted in the right lower neck. There are multiple mildly FDG avid lymph nodes in the bilateral cervical, axillary, abdominal, and inguinal regions as well as splenomegaly, and those findings were felt to be suspicious for lymphoma. He underwent right tonsillectomy, partial pharyngectomy, right base of tongue resection and right lymph node dissection on 07/06/12. Pathology showed basaloid type nonkeratinizing squamous cell carcinoma. The primary tumor was measured at 1.7 cm. There was staged p T1, but the report indicates there was tumor present at the margins. There was involvement in 2 of 27 lymph nodes. There was extracapsular extension noted. He also underwent biopsies of superficial and deep left axillary lymph nodes. Pathology from both sites was consistent with small lymphocytic lymphoma/chronic lymphocytic leukemia. He was given postoperative chemoradiation. He completed radiation on 10/13/12 to a total dose of 66 Gy. He completed only 2 cycles of cisplatin. His treatment was complicated by poor oral intake and weight loss, despite having nutritional support via PEG tube. He otherwise tolerated the treatment well. He was then followed on observation/expectant management for the head/neck cancer and the chronic lymphocytic leukemia. He had restaging PET/CT on 10/06/2015. It did show fairly extensive lymphadenopathy extending from the cervical through pelvic sidewall basins. The most prominent sites included a portacaval node measuring 6.5 x 3.2 cm and a subcarinal mass measuring 4.4 x 2.2 cm. The findings were felt to be consistent with recurrent low-grade lymphoma. There was no obvious recurrence of the head/neck cancer. During this time he has had follow-up with Dr. Black. He did have an FNA biopsy of one of the posterior cervical lymph nodes, and it did appear to be consistent with lymphoma. He began a trial of therapy with ibrutinib 420 mg daily on 02/25/2016. His white count did show significant increase after starting ibrutinib, as expected. As of 03/17/2016 it peaked at 94,000, but it then began to decline. Other side effects have included fatigue and altered taste. As of his follow-up visit in December 2016 the white count was just slightly elevated at 13,700 with normal hemoglobin at 14.1 g and slightly low platelet count of 119,000. At that point he appeared to have complete resolution of the peripheral lymphadenopathy and splenomegaly. He continued the ibrutinib at 420 mg daily. He remained on observation/expectant management for the tonsillar cancer. As of his follow-up visit in June 2019 I had opted to reduce the ibrutinib dosage to 280 mg daily. At that point there was no evidence of recurrence of the head/neck cancer and no evidence of progression of the CLL. Restaging PET/CT on 10/08/2019 showed no evidence for recurrent or residual malignancy. He continued treatment with ibrutinib 280 mg daily. His medical history is otherwise significant for underlying COPD and chronic anxiety/depression. He has had some chronic neck and back pain and he has had chronic insomnia. He has known history of hepatitis C. He completed treatment for it in June 2015. He has no other medical illnesses. He had previous surgery for neck fracture in 2006. In June 2018 he underwent excision of the basal cell carcinoma from the left parietal scalp. He had previously smoked 1 pack of cigarettes daily. He quit in 2011. He has had some alcohol use in the past, but not heavy. INTERIM HISTORY: He is seen for a scheduled visit. He has been feeling fine. He does have some fatigue, but he is able to do light work. ECOG score is 1. He has good appetite. He has no fever or night sweats. He has dry mouth, no difficulty swallowing. He has no shortness of breath, cough, or chest pain. He still has occasional nausea and occasionally has heartburn. Bowel and bladder function have been okay. He has chronic pain in the neck/shoulders and in his back. It is managed adequately with medication. He has no focal neurologic symptoms. He does bruise very easily, but he has had no other bleeding manifestations. Medications: Albuterol 1 (90 mcg/act) Aerosol, solution Inhalation t.i.d., Famotidine 1 Tablet (of 40 mg) Oral daily, Gabapentin 1 (300 mg) Capsule Oral t.i.d., hydrOXYzine HCl 1 Tablet (of 10 mg) Oral t.i.d., Imbruvica 1 Tablet (of 280 mg) Capsule Oral daily, Levothyroxine Sodium 1 Tablet (of 50 mcg) Oral daily, Marinol 1 Tablet (of 5 mg) Capsule Oral b.i.d. PRN, Metoclopramide HCl 1 Tablet (of 10 mg) Oral t.i.d., Mirtazapine 1 (45 mg) Tablet Oral at bedtime, Morphine Sulfate ER 1 (30 mg) Tablet, controlled release Oral b.i.d., Ondansetron 8 mg (of 8 mg) Tablet Dispersable Oral t.i.d. PRN, Pravastatin Sodium 1 Tablet (of 40 mg) Oral daily, Senna 1 Tablet (of 8.6 mg) 5x/d, Symbicort 1 (160-4.5 mcg/act) Aerosol Inhalation b.i.d. Allergies: No Known Allergies. Vital Signs: Performed on Jul 30, 2020 13:32 Height - 74.00 in Weight - 176 lbs (LOW) BSA - 2.06 sq.m BMI - 22.60 Temperature - 97.6 F (LOW) Pulse - 61 /min Respiration - 18 /min BP - 147/99 mm(hg) (HIGH) O2 Sat - 95 % (LOW) Pain - 4 Physical Examination: Constitutional - He looks pretty good generally, Eyes - Sclerae nonicteric. Conjunctivae clear, ENMT - Mouth is dry. There are no lesions noted in the oral cavity, Hematologic/Lymphatic - There is no cervical, clavicular, or axillary adenopathy noted, Respiratory - Lungs sound clear with diminished air movement bilaterally, Cardiovascular - Heart rhythm is regular. There is no murmur, gallop, or rub noted, Abdomen - Soft. Liver is not enlarged. Spleen is not palpable. There is no abdominal mass or ascites noted. There is no inguinal adenopathy, Extremities - No edema. He has extensive purpura, Neurologic - No focal neurologic deficits noted. Lab/Imaging: Test performed on Jul 30, 2020 12:25 LDH (Total) 175 U/L Sodium 139 mmol/L TSH 4.46 uIU/mL Potassium 4.6 mmol/L Chloride 102 mmol/L CO2 29 mmol/L Anion Gap 12.6 BUN 11 mg/dL Creatinine 1.2 mg/dL Cr Clearance (Est) 73.92 mL/min eGFR 61.8 mL/min Glucose 80 mg/dL Osmolality - Calculated 286 mOsm/kg Calcium 9.4 mg/dL Protein, Total 6.9 g/dL Albumin 4.2 g/dL Globulin 2.7 g/dL Bilirubin, Total 0.3 mg/dL ALT (SGPT) 9 U/L AST (SGOT) 15 U/L Alkaline Phosphatase 104 IU/L WBC 8.5 10 3/uL RBC 5.31 10 6/uL HGB 15.1 g/dL HCT 47.9 % MCV 90.2 fL MCH 28.4 pg MCHC 31.5 g/dL RDW 14.6 % Platelet Count 144 10 3/cmm MPV 11.7 fL Neutrophils 5.74 10 3/uL Lymphocytes 2.1 10 3/uL Monocytes 0.5 10 3/uL Eosinophils 0.0 10 3/uL Basophils 0.1 10 3/uL Neutrophil % 67.3 % Lymphocyte % 24.2 % Monocyte % 6.0 % Eosinophil % 0.2 % Basophils % 0.7 % NRBC % 0 % Historic Problem List: 1. Stage ISHA squamous cell carcinoma of the right tonsil/right base of tongue. He underwent surgical resection in June 2012, and he completed postop chemoradiation in September 2012 to a total radiation dose of 66 Gy. He has been on observation for the head/neck cancer following completion of the chemoradiation. Thus far there has been no evidence of recurrence. 2. He also was found on lymph node biopsy to have evidence of chronic lymphocytic leukemia/well-differentiated lymphoma. He had associated peripheral lymphadenopathy and he also had leukocytosis and mild splenomegaly. During follow-up, he was noted to have progression of the lymphoproliferative disorder. On 02/25/2016 he began a trial of ibrutinib at 420 mg daily. 3. He has additional history of hepatitis C for which he completed treatment in June 2015. 4. COPD. 5. 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 6. Hypothyroidism. 7. Anxiety/depression. Problems Addressed with this Encounter and Plan: 1. He was found on lymph node biopsy to have evidence of chronic lymphocytic leukemia/well-differentiated lymphoma. He had associated peripheral lymphadenopathy and he also had leukocytosis and mild splenomegaly. During follow-up, he was noted to have progression of the lymphoproliferative disorder. On 02/25/2016 he began a trial of ibrutinib at 420 mg daily. He had a very good response to the ibrutinib. During follow-up he did require a dose reduction to 280 mg daily, but he has tolerated it well at that dosage and thus far there has been evidence of progression of the CLL. As such, he will continue the ibrutinib at 280 mg daily. 2. Squamous cell carcinoma of the right tonsil/right base of tongue, stage ISHA. He underwent surgical resection in June 2012, and he completed postop chemoradiation in September 2012 to a total radiation dose of 66 Gy. He has followed been on observation following completion of the chemoradiation, thus far with no evidence of recurrence. 3. He has underlying degenerative disease, which is managed adequately with extended release morphine 30 mg every 12 hours. It will be continued at the same dosage. Signed By: Aman Ochoa M.D. <<Signature on File>>
== END 2020-07-30 12:08 | disposition home or self-care (01) ==
LOC: ONCMED 12:10
PROVIDERS: PCP Internal Medicine; Visit Provider Internal Medicine Medical Oncology
DX: C91.10 Chronic lymphocytic leukemia of B-cell type not having achieved remission (principal); Z85.810 Personal history of malignant neoplasm of tongue; Z85.818 Personal history of malignant neoplasm of other sites of lip, oral cavity, and pharynx; J44.9 Chronic obstructive pulmonary disease, unspecified; E03.9 Hypothyroidism, unspecified; M48.9 Spondylopathy, unspecified; F41.8 Other specified anxiety disorders; Z92.3 Personal history of irradiation; Z79.899 Other long term (current) drug therapy
CPT/HCPCS: 36415; 80053; 83615; 84443; 85025; 99214

== ENCOUNTER 2020-11-01 13:20 | Outpatient (CLI) | payer MEDICAID, SELFPAY ==
[2020-11-01 14:02] LABS: Basophils # 0.1 10^3/uL (0.0-0.1); Basophils % 0.9 %; Eosinophils # 0.1 10^3/uL (0.0-0.8); Eosinophils % 0.5 %; Hematocrit 45.5 % (42.0-52.0); Hemoglobin 14.4 g/dL (11.7-16.6); Lymphocytes # 2.8 10^3/uL (0.8-4.8); Mean Corpuscular HGB Conc 31.6 g/dL (30.0-36.0); Mean Corpuscular Volume 91.7 fL (80-94); Mean Platelet Volume 11.6 fL (7.4-10.4); Monocytes # 0.6 10^3/uL (0.2-0.9); Monocytes % 6.2 %; Neutrophils # 5.66 10^3/uL (1.8-7.7); Neutrophils % 60.2 %; Nucleated Red Blood Cells % 0 %; Platelet Count 137 10^3/cmm (130-400); Red Blood Count 4.96 10^6/uL (4.1-5.3); Red Cell Distribution Width 15.5 % (12.1-15.1); White Blood Count 9.4 10^3/uL (4.0-10.0)
[2020-11-01 14:19] LABS: Alanine Aminotransferase 8 U/L (0-41); Alkaline Phosphatase 100 IU/L (40-130); Anion Gap 10.3 (5-19); Aspartate Amino Transferase 13 U/L (0-40); Blood Urea Nitrogen 9 mg/dL (8-23); Calcium 8.7 mg/dL (8.5-10.5); Carbon Dioxide 32 mmol/L (22-29); Chloride 104 mmol/L (98-107); Globulin 2.3 g/dL (1.3-4.6); Glomerular Filtration Rate 61.8 mL/min (90-130); Glucose 70 mg/dL (65-115); Lactate Dehydrogenase 177 U/L (135-225); Osmolality Calculated 291 mOsm/kg (285-295); Potassium 4.3 mmol/L (3.5-5.1); Sodium 142 mmol/L (136-145); Total Bilirubin 0.3 mg/dL (0.15-1.2); Total Protein 6.3 g/dL (6.6-8.7)
--- NOTE | 2020-11-03 13:35 | ONC FU_ITS ---
Dr. Ochoa Patient Follow-Up Note Patient: Apolinar Nix Unit #: [id number]: 1960 Dicatated By: Aman Ochoa M.D.Date of Visit:Nov 01, 2020 Onc Med Follow-up/Prog Note Chief Complaint: Head/neck cancer and CLL. 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 He also has small lymphocytic lymphoma/CLL. He had initially presented with a right neck mass in April of 2011. Biopsies at that time were nondiagnostic. He apparently then failed to return for followup. He was seen again in January of 2012 with a new mass in the right neck area. He was then found on laryngoscopy to have squamous cell cancer involving the right tonsil and base of tongue on the right side. Staging PET/CT scan on 04/14/12 showed an FDG positive mass in the right oropharynx measuring 1.3 x 1.7 x 3.5 cm. There were multiple hypermetabolic necrotic right-sided lymph nodes. There were additional smaller nodes on both sides of the neck which were FDG negative. There are mildly prominent axillary lymph nodes bilaterally, FDG negative, without significant mediastinal or hilar adenopathy noted. There was also questionable abdominal adenopathy, metabolically inactive. The possibility of low grade lymphoma was suggested. His subsequent clinical course was complicated by development of pneumonia, but he did recover. Repeat PET/CT scan on 07/05/12 showed interval progression in the area of the right tonsillar mass. A new FDG avid lymph node was noted in the right lower neck. There are multiple mildly FDG avid lymph nodes in the bilateral cervical, axillary, abdominal, and inguinal regions as well as splenomegaly, and those findings were felt to be suspicious for lymphoma. He underwent right tonsillectomy, partial pharyngectomy, right base of tongue resection and right lymph node dissection on 07/06/12. Pathology showed basaloid type nonkeratinizing squamous cell carcinoma. The primary tumor was measured at 1.7 cm. There was staged p T1, but the report indicates there was tumor present at the margins. There was involvement in 2 of 27 lymph nodes. There was extracapsular extension noted. He also underwent biopsies of superficial and deep left axillary lymph nodes. Pathology from both sites was consistent with small lymphocytic lymphoma/chronic lymphocytic leukemia. He was given postoperative chemoradiation. He completed radiation on 10/13/12 to a total dose of 66 Gy. He completed only 2 cycles of cisplatin. His treatment was complicated by poor oral intake and weight loss, despite having nutritional support via PEG tube. He otherwise tolerated the treatment well. He was then followed on observation/expectant management for the head/neck cancer and the chronic lymphocytic leukemia. He had restaging PET/CT on 10/06/2015. It did show fairly extensive lymphadenopathy extending from the cervical through pelvic sidewall basins. The most prominent sites included a portacaval node measuring 6.5 x 3.2 cm and a subcarinal mass measuring 4.4 x 2.2 cm. The findings were felt to be consistent with recurrent low-grade lymphoma. There was no obvious recurrence of the head/neck cancer. During this time he has had follow-up with Dr. Black. He did have an FNA biopsy of one of the posterior cervical lymph nodes, and it did appear to be consistent with lymphoma. He began a trial of therapy with ibrutinib 420 mg daily on 02/25/2016. His white count did show significant increase after starting ibrutinib, as expected. As of 03/17/2016 it peaked at 94,000, but it then began to decline. Other side effects have included fatigue and altered taste. As of his follow-up visit in December 2016 the white count was just slightly elevated at 13,700 with normal hemoglobin at 14.1 g and slightly low platelet count of 119,000. At that point he appeared to have complete resolution of the peripheral lymphadenopathy and splenomegaly. He continued the ibrutinib at 420 mg daily. He remained on observation/expectant management for the tonsillar cancer. As of his follow-up visit in June 2019 I had opted to reduce the ibrutinib dosage to 280 mg daily. At that point there was no evidence of recurrence of the head/neck cancer and no evidence of progression of the CLL. Restaging PET/CT on 10/08/2019 showed no evidence for recurrent or residual malignancy. He continued treatment with ibrutinib 280 mg daily. His medical history is otherwise significant for underlying COPD and chronic anxiety/depression. He has had some chronic neck and back pain and he has had chronic insomnia. He has known history of hepatitis C. He completed treatment for it in June 2015. He has no other medical illnesses. He had previous surgery for neck fracture in 2006. In June 2018 he underwent excision of the basal cell carcinoma from the left parietal scalp. He had previously smoked 1 pack of cigarettes daily. He quit in 2011. He has had some alcohol use in the past, but not heavy. INTERIM HISTORY: He is seen for a scheduled visit. He has been feeling okay. He has pretty good energy. He is walking and doing light work at home. ECOG score is 1. Appetite is good. He has no fever or night sweats. He has no difficulty swallowing. He has no shortness of breath, cough, or chest pain. He does have occasional episodes of acid reflux. He has had only one recent episode of vomiting. Bowel and bladder function have been okay. He has chronic pain, mainly in his neck and right shoulder. It is managed adequately with medication. He has headache with weather changes. He has dizziness if he gets up too fast. He has no numbness/paresthesia or other focal neurologic symptoms. Medications: Albuterol 1 (90 mcg/act) Aerosol, solution Inhalation t.i.d., Famotidine 1 Tablet (of 40 mg) Oral daily, Gabapentin 1 (300 mg) Capsule Oral t.i.d., hydrOXYzine HCl 1 Tablet (of 10 mg) Oral t.i.d., Imbruvica 1 Tablet (of 280 mg) Capsule Oral daily, Levothyroxine Sodium 1 Tablet (of 50 mcg) Oral daily, Marinol 1 Tablet (of 5 mg) Capsule Oral b.i.d. PRN, Metoclopramide HCl 1 Tablet (of 10 mg) Oral t.i.d., Mirtazapine 1 (45 mg) Tablet Oral at bedtime, Morphine Sulfate ER 1 (30 mg) Tablet, controlled release Oral b.i.d., Ondansetron 8 mg (of 8 mg) Tablet Dispersable Oral t.i.d. PRN, Pravastatin Sodium 1 Tablet (of 40 mg) Oral daily, Senna 1 Tablet (of 8.6 mg) 5x/d, Symbicort 1 (160-4.5 mcg/act) Aerosol Inhalation b.i.d. Allergies: No Known Allergies. Vital Signs: Performed on Nov 01, 2020 15:04 Height - 74.00 in Weight - 184.4 lbs (HIGH) BSA - 2.10 sq.m BMI - 23.68 Temperature - 98.3 F (LOW) Pulse - 55 /min (LOW) Respiration - 18 /min BP - 129/70 mm(hg) O2 Sat - 96 % Pain - 0 Physical Examination: Constitutional - He looks pretty good generally, Eyes - Sclerae nonicteric. Conjunctivae clear, ENMT - No lesions noted in the oral cavity, Hematologic/Lymphatic - No cervical, clavicular, or axillary adenopathy noted, Respiratory - Lungs sound clear with diminished air movement bilaterally, Cardiovascular - Heart rhythm is regular. There is no murmur, gallop, or rub noted, Abdomen - Soft. Liver is not enlarged. Spleen is not palpable. There is no abdominal mass or ascites noted. There is no inguinal adenopathy, Extremities - No edema. He has extensive purpura, Neurologic - No focal neurologic deficits noted. Lab/Imaging: Test performed on Nov 01, 2020 13:41 LDH (Total) 177 U/L Sodium 142 mmol/L Potassium 4.3 mmol/L Chloride 104 mmol/L CO2 32 mmol/L Anion Gap 10.3 BUN 9 mg/dL Creatinine 1.2 mg/dL Cr Clearance (Est) 77.45 mL/min eGFR 61.8 mL/min Glucose 70 mg/dL Osmolality - Calculated 291 mOsm/kg Calcium 8.7 mg/dL Protein, Total 6.3 g/dL Albumin 4.0 g/dL Globulin 2.3 g/dL Bilirubin, Total 0.3 mg/dL ALT (SGPT) 8 U/L AST (SGOT) 13 U/L Alkaline Phosphatase 100 IU/L WBC 9.4 10 3/uL RBC 4.96 10 6/uL HGB 14.4 g/dL HCT 45.5 % MCV 91.7 fL MCH 29.0 pg MCHC 31.6 g/dL RDW 15.5 % Platelet Count 137 10 3/cmm MPV 11.6 fL Neutrophils 5.66 10 3/uL Lymphocytes 2.8 10 3/uL Monocytes 0.6 10 3/uL Eosinophils 0.1 10 3/uL Basophils 0.1 10 3/uL Neutrophil % 60.2 % Lymphocyte % 30.0 % Monocyte % 6.2 % Eosinophil % 0.5 % Basophils % 0.9 % NRBC % 0 % Problem List: 1. Stage ISHA squamous cell carcinoma of the right tonsil/right base of tongue. He underwent surgical resection in June 2012, and he completed postop chemoradiation in September 2012 to a total radiation dose of 66 Gy. 2. Chronic lymphocytic leukemia/well-differentiated lymphoma. 4. COPD. 5. 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 6. Hypothyroidism. 7. Anxiety/depression. Problems Addressed with this Encounter and Plan: 1. Patient with chronic lymphocytic leukemia, discovered as an incidental finding on lymph node biopsy. He had associated peripheral lymphadenopathy and he also had leukocytosis and mild splenomegaly. During follow-up, he was noted to have progression of the lymphoproliferative disorder. On 02/25/2016 he began a trial of ibrutinib at 420 mg daily. He had a very good response to the ibrutinib, though he subsequently did require a dose reduction to 280 mg daily. He has tolerated it well at that dosage. During follow-up he has been doing well clinically. He has had increased bruising with the ibrutinib. He has had no other bleeding manifestations, and he otherwise tolerates it well. Thus far there has been no evidence of progression of the chronic lymphocytic leukemia. He will continue ibrutinib at 280 mg daily. I will see him again in 3 months. 2. Squamous cell carcinoma of the right tonsil/right base of tongue, stage ISHA. He underwent surgical resection in June 2012, and he completed postop chemoradiation in September 2012 to a total radiation dose of 66 Gy. During followup there has been no evidence of recurrence. He continues on expectant management. 3. He has underlying degenerative disease, which is managed adequately with extended release morphine 30 mg every 12 hours. It will be continued at the same dosage. Signed By: Aman Ochoa M.D. <<Signature on File>>
== END 2020-11-01 13:21 | disposition home or self-care (01) ==
PROVIDERS: PCP Internal Medicine; Visit Provider Internal Medicine Medical Oncology
DX: C83.08 Small cell B-cell lymphoma, lymph nodes of multiple sites (principal); C09.9 Malignant neoplasm of tonsil, unspecified; F17.211 Nicotine dependence, cigarettes, in remission; J44.9 Chronic obstructive pulmonary disease, unspecified; M50.30 Other cervical disc degeneration, unspecified cervical region; M51.36 Other intervertebral disc degeneration, lumbar region; E03.9 Hypothyroidism, unspecified; F41.9 Anxiety disorder, unspecified; F32.9 Major depressive disorder, single episode, unspecified; Z92.3 Personal history of irradiation; Z92.21 Personal history of antineoplastic chemotherapy; Z79.899 Other long term (current) drug therapy
CPT/HCPCS: 36415; 80053; 83615; 85025; 99214

== ENCOUNTER 2021-03-04 13:46 | Outpatient (CLI) | payer MEDICAID, SELFPAY ==
[2021-03-04 14:36] LABS: Basophils # 0.1 10^3/uL (0.0-0.1); Basophils % 0.9 %; Eosinophils % 0.2 %; Hematocrit 43.6 % (42.0-52.0); Hemoglobin 14.2 g/dL (11.7-16.6); Lymphocytes # 2.5 10^3/uL (0.8-4.8); Lymphocytes % 27.7 %; Mean Corpuscular HGB Conc 32.6 g/dL (30.0-36.0); Mean Corpuscular Hemoglobin 30.2 pg (28.0-34.0); Mean Corpuscular Volume 92.8 fl (80-94); Monocytes # 0.5 10^3/uL (0.2-0.9); Monocytes % 5.3 %; Neutrophils % 64.3 %; Nucleated Red Blood Cells % 0 %; Platelet Count 122 10^3/cmm (130-400); Red Cell Distribution Width 14.6 % (12.1-15.1)
[2021-03-04 15:13] LABS: Alanine Aminotransferase 6 U/L (0-41); Alkaline Phosphatase 79 IU/L (40-130); Anion Gap 14.4 (5-19); Aspartate Amino Transferase 12 U/L (0-40); Blood Urea Nitrogen 12 mg/dL (8-23); Calcium 8.5 mg/dL (8.5-10.5); Carbon Dioxide 26 mmol/L (22-29); Chloride 105 mmol/L (98-107); Globulin 2.3 g/dL (1.3-4.6); Glomerular Filtration Rate 56.1 mL/min (90-130); Glucose 86 mg/dL (65-115); Lactate Dehydrogenase 165 U/L (135-225); Osmolality Calculated 291 mOsm/kg (285-295); Potassium 4.4 mmol/L (3.5-5.1); Sodium 141 mmol/L (136-145); Total Bilirubin 0.3 mg/dL (0.15-1.2); Total Protein 6.3 g/dL (6.6-8.7)
[2021-03-04 15:18] LABS: Slide Review Slide Review Perform
--- NOTE | 2021-03-04 18:53 | ONC FU_ITS ---
Dr. Ochoa Patient Follow-Up Note Patient: Apolinar Nix Unit #: [id number]: [id number] Dicatated By: Aman Ochoa M.D.Date of Visit:Mar 04, 2021 Onc Med Follow-up/Prog Note Chief Complaint: Head/neck cancer and CLL. 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 He also has small lymphocytic lymphoma/CLL. He had initially presented with a right neck mass in April of 2011. Biopsies at that time were nondiagnostic. He apparently then failed to return for followup. He was seen again in January of 2012 with a new mass in the right neck area. He was then found on laryngoscopy to have squamous cell cancer involving the right tonsil and base of tongue on the right side. Staging PET/CT scan on 04/14/12 showed an FDG positive mass in the right oropharynx measuring 1.3 x 1.7 x 3.5 cm. There were multiple hypermetabolic necrotic right-sided lymph nodes. There were additional smaller nodes on both sides of the neck which were FDG negative. There are mildly prominent axillary lymph nodes bilaterally, FDG negative, without significant mediastinal or hilar adenopathy noted. There was also questionable abdominal adenopathy, metabolically inactive. The possibility of low grade lymphoma was suggested. His subsequent clinical course was complicated by development of pneumonia, but he did recover. Repeat PET/CT scan on 07/05/2012 showed interval progression in the area of the right tonsillar mass. A new FDG avid lymph node was noted in the right lower neck. There are multiple mildly FDG avid lymph nodes in the bilateral cervical, axillary, abdominal, and inguinal regions as well as splenomegaly, and those findings were felt to be suspicious for lymphoma. He underwent right tonsillectomy, partial pharyngectomy, right base of tongue resection and right lymph node dissection on 07/06/2012. Pathology showed grade 3 basaloid type nonkeratinizing squamous cell carcinoma, reportedly P16 positive. The primary tumor was measured at 1.7 cm. It was staged p T1, but the report indicated there was tumor present at the margins. There was involvement in 2 of 27 lymph nodes. There was extracapsular extension noted. He also underwent biopsies of superficial and deep left axillary lymph nodes. Pathology from both sites was consistent with small lymphocytic lymphoma/chronic lymphocytic leukemia. He was given postoperative chemoradiation. He completed radiation on 10/13/2012 to a total dose of 66 Gy. He completed only 2 cycles of cisplatin. His treatment was complicated by poor oral intake and weight loss, despite having nutritional support via PEG tube. He otherwise tolerated the treatment well. He was then followed on observation/expectant management for the head/neck cancer and the chronic lymphocytic leukemia. He had restaging PET/CT on 10/06/2015. It did show fairly extensive lymphadenopathy extending from the cervical through pelvic sidewall basins. The most prominent sites included a portacaval node measuring 6.5 x 3.2 cm and a subcarinal mass measuring 4.4 x 2.2 cm. The findings were felt to be consistent with recurrent low-grade lymphoma. There was no obvious recurrence of the head/neck cancer. During this time he has had follow-up with Dr. Black. He did have an FNA biopsy of one of the posterior cervical lymph nodes, and it did appear to be consistent with lymphoma. He began a trial of therapy with ibrutinib 420 mg daily on 02/25/2016. His white count did show significant increase after starting ibrutinib, as expected. As of 03/17/2016 it peaked at 94,000, but it then began to decline. Other side effects have included fatigue and altered taste. As of his follow-up visit in December 2016 the white count was just slightly elevated at 13,700 with normal hemoglobin at 14.1 g and slightly low platelet count of 119,000. At that point he appeared to have complete resolution of the peripheral lymphadenopathy and splenomegaly. He continued the ibrutinib at 420 mg daily. He remained on observation/expectant management for the tonsillar cancer. As of his follow-up visit in June 2019 I had opted to reduce the ibrutinib dosage to 280 mg daily. At that point there was no evidence of recurrence of the head/neck cancer and no evidence of progression of the CLL. Restaging PET/CT on 10/08/2019 showed no evidence for recurrent or residual malignancy. He continued treatment with ibrutinib 280 mg daily. His medical history is otherwise significant for underlying COPD and chronic anxiety/depression. He has had some chronic neck and back pain and he has had chronic insomnia. He has known history of hepatitis C. He completed treatment for it in June 2015. He has no other medical illnesses. He had previous surgery for neck fracture in 2006. In June 2018 he underwent excision of the basal cell carcinoma from the left parietal scalp. He had previously smoked 1 pack of cigarettes daily. He quit in 2011. He has had some alcohol use in the past, but not heavy. INTERIM HISTORY: He is seen for a followup visit. He has been feeling pretty good generally. He says that over the weekend he got real weak, but that was probably just due to the heat. His energy has otherwise been okay. He is doing light work. ECOG score is 1. He has good appetite. He has no fever or night sweats. He is not having sore throat or difficulty swallowing. He has no shortness of breath, cough, or chest pain. He has no GI or complaints. He has chronic pain. It is adequately managed with his medication. He does not complain of headache or dizziness. He has no numbness/paresthesia or other focal neurologic symptoms. He does bruise very easily. He has had no other bleeding manifestations. Medications: Albuterol 1 (90 mcg/act) Aerosol, solution Inhalation t.i.d., Famotidine 1 Tablet (of 40 mg) Oral daily, Gabapentin 1 (300 mg) Capsule Oral t.i.d., hydrOXYzine HCl 1 Tablet (of 10 mg) Oral t.i.d., Imbruvica 1 Tablet (of 280 mg) Capsule Oral daily, Levothyroxine Sodium 1 Tablet (of 50 mcg) Oral daily, Marinol 1 Tablet (of 5 mg) Capsule Oral b.i.d. PRN, Metoclopramide HCl 1 Tablet (of 10 mg) Oral t.i.d., Mirtazapine 1 (45 mg) Tablet Oral at bedtime, Morphine Sulfate ER 1 (30 mg) Tablet, controlled release Oral b.i.d., Ondansetron 8 mg (of 8 mg) Tablet Dispersable Oral t.i.d. PRN, Pravastatin Sodium 1 Tablet (of 40 mg) Oral daily, Senna 1 Tablet (of 8.6 mg) 5x/d, Symbicort 1 (160-4.5 mcg/act) Aerosol Inhalation b.i.d. Allergies: No Known Allergies. Vital Signs: Performed on Mar 04, 2021 15:53 Height - 74.00 in Weight - 172.4 lbs (LOW) BSA - 2.04 sq.m BMI - 22.13 Temperature - 98.2 F (LOW) Pulse - 54 /min (LOW) Respiration - 18 /min BP - 168/97 mm(hg) (HIGH) O2 Sat - 97 % Pain - 4 Fatigue - 4 Physical Examination: Constitutional - He looks pretty good generally, Eyes - Sclerae nonicteric. Conjunctivae clear, ENMT - No lesions noted in the oral cavity, Hematologic/Lymphatic - No cervical, clavicular, or axillary adenopathy noted, Respiratory - Lungs sound clear with diminished air movement bilaterally, Cardiovascular - Heart rhythm is regular. There is no murmur, gallop, or rub noted, Abdomen - Soft. Liver is not enlarged. Spleen is not palpable. There is no abdominal mass or ascites noted. There is no inguinal adenopathy, Extremities - No edema. He has extensive purpura, Neurologic - No focal neurologic deficits noted. Lab/Imaging: Test performed on Mar 04, 2021 14:12 LDH (Total) 165 U/L Sodium 141 mmol/L Potassium 4.4 mmol/L Chloride 105 mmol/L CO2 26 mmol/L Anion Gap 14.4 BUN 12 mg/dL Creatinine 1.3 mg/dL Cr Clearance (Est) 66.00 mL/min eGFR 56.1 mL/min Glucose 86 mg/dL Osmolality - Calculated 291 mOsm/kg Calcium 8.5 mg/dL Protein, Total 6.3 g/dL Albumin 4.0 g/dL Globulin 2.3 g/dL Bilirubin, Total 0.3 mg/dL ALT (SGPT) 6 U/L AST (SGOT) 12 U/L Alkaline Phosphatase 79 IU/L WBC 9.0 10 3/uL RBC 4.70 10 6/uL HGB 14.2 g/dL HCT 43.6 % MCV 92.8 fl MCH 30.2 pg MCHC 32.6 g/dL RDW 14.6 % Platelet Count 122 10 3/cmm MPV 12.0 fL Neutrophils 5.80 10 3/uL Lymphocytes 2.5 10 3/uL Monocytes 0.5 10 3/uL Eosinophils 0.0 10 3/uL Basophils 0.1 10 3/uL Neutrophil % 64.3 % Lymphocyte % 27.7 % Monocyte % 5.3 % Eosinophil % 0.2 % Basophils % 0.9 % NRBC % 0 % CBC Slide Review Slide Review Perform SLIDE REVIEWED AGREES WITH AUTO RESULT. NO PLATELET CLUMPS OBSERVED ON BOTH SLIDE AND TUBE. Problem List: 1. Grade 3 basaloid type nonkeratinizing squamous cell carcinoma of the right tonsil and right base of tongue, P16 positive, stage II (pT1, pN2b, M0). 2. Chronic lymphocytic leukemia/well-differentiated lymphoma. 4. COPD. 5. 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 6. Hypothyroidism. 7. Anxiety/depression. Problems Addressed with this Encounter and Plan: 1. Patient with chronic lymphocytic leukemia, discovered as an incidental finding on lymph node biopsy. He had associated peripheral lymphadenopathy and he also had leukocytosis and mild splenomegaly. During follow-up, he was noted to have progression of the lymphoproliferative disorder. On 02/25/2016 he began a trial of ibrutinib at 420 mg daily. He had a very good response to the ibrutinib, though he subsequently did require a dose reduction to 280 mg daily. He has tolerated it well at that dosage. During follow-up he has been doing well clinically. He has had increased bruising with the ibrutinib, but he has had no other bleeding manifestations. He has otherwise tolerated it very well. Thus far there has been no evidence of progression of the chronic lymphocytic leukemia. He will continue ibrutinib at 280 mg daily. He will have repeat CBC in 3 months and he will be scheduled for follow-up visit in 6 months. 2. Grade 3 basaloid squamous cell carcinoma of the right tonsil/right base of tongue, P16 positive, stage II (pT1, pN2b, M0). He underwent surgical resection in June 2012, and he completed postop chemoradiation in September 2012 to a total radiation dose of 66 Gy. During followup there has been no evidence of recurrence. He continues on expectant management. 3. He has underlying degenerative disease, which is managed adequately with extended release morphine 30 mg every 12 hours. It will be continued at the same dosage. 4. He has developed small cystic skin lesions on both elbows. The cause is uncertain. I will arrange for dermatology referral. Signed By: Aman Ochoa M.D. <<Signature on File>>
== END 2021-03-04 13:47 | disposition home or self-care (01) ==
LOC: ONCMED 13:49
PROVIDERS: PCP Internal Medicine; Visit Provider Internal Medicine Medical Oncology
DX: C91.10 Chronic lymphocytic leukemia of B-cell type not having achieved remission (principal); J44.9 Chronic obstructive pulmonary disease, unspecified; G31.89 Other specified degenerative diseases of nervous system; M54.2 Cervicalgia; M54.5 Low back pain; E03.9 Hypothyroidism, unspecified; F41.9 Anxiety disorder, unspecified; F32.9 Major depressive disorder, single episode, unspecified; Z85.810 Personal history of malignant neoplasm of tongue; Z85.89 Personal history of malignant neoplasm of other organs and systems; Z79.899 Other long term (current) drug therapy; Z92.21 Personal history of antineoplastic chemotherapy; Z92.3 Personal history of irradiation
CPT/HCPCS: 36415; 80053; 83615; 85025; 99214

== ENCOUNTER 2021-05-30 11:03 | Outpatient (CLI) | payer MEDICAID, SELFPAY ==
[2021-05-30 11:43] LABS: Basophils # 0.1 10^3/uL (0.0-0.1); Basophils % 0.8 %; Eosinophils % 0.2 %; Hematocrit 47.4 % (42.0-52.0); Hemoglobin 15.2 g/dL (11.7-16.6); Lymphocytes # 4.1 10^3/uL (0.8-4.8); Lymphocytes % 36.1 %; Mean Corpuscular HGB Conc 32.1 g/dL (30.0-36.0); Mean Corpuscular Hemoglobin 29.7 pg (28.0-34.0); Mean Corpuscular Volume 92.8 fl (80-94); Mean Platelet Volume 11.2 fL (7.4-10.4); Monocytes # 0.7 10^3/uL (0.2-0.9); Monocytes % 6.1 %; Neutrophils # 6.28 10^3/uL (1.8-7.7); Neutrophils % 55.1 %; Nucleated Red Blood Cells % 0 %; Platelet Count 132 10^3/cmm (130-400); Red Blood Count 5.11 10^6/uL (4.1-5.3); Red Cell Distribution Width 14.2 % (12.1-15.1); White Blood Count 11.4 10^3/uL (4.0-10.0)
== END 2021-05-30 11:04 | disposition home or self-care (01) ==
LOC: ONCMED 11:05
PROVIDERS: PCP Internal Medicine; Visit Provider Internal Medicine Medical Oncology
DX: C91.10 Chronic lymphocytic leukemia of B-cell type not having achieved remission (principal)
CPT/HCPCS: 36415; 85025

== ENCOUNTER 2021-08-27 13:35 | Outpatient (CLI) | payer MEDICAID, SELFPAY ==
[2021-08-27 14:37] LABS: Basophils # 0.1 10^3/uL (0.0-0.1); Basophils % 0.5 %; Eosinophils # 0.1 10^3/uL (0.0-0.8); Eosinophils % 0.4 %; Hematocrit 43.8 % (42.0-52.0); Hemoglobin 14.3 g/dL (11.7-16.6); Lymphocytes # 4.7 10^3/uL (0.8-4.8); Lymphocytes % 37.3 %; Mean Corpuscular HGB Conc 32.6 g/dL (30.0-36.0); Mean Corpuscular Hemoglobin 31.2 pg (28.0-34.0); Mean Corpuscular Volume 95.4 fl (80-94); Mean Platelet Volume 11.5 fL (7.4-10.4); Monocytes # 0.6 10^3/uL (0.2-0.9); Monocytes % 4.9 %; Neutrophils # 7.02 10^3/uL (1.8-7.7); Neutrophils % 55.8 %; Nucleated Red Blood Cells % 0 %; Platelet Count 149 10^3/cmm (130-400); Red Blood Count 4.59 10^6/uL (4.1-5.3); Red Cell Distribution Width 15.5 % (12.1-15.1); White Blood Count 12.6 10^3/uL (4.0-10.0)
[2021-08-27 15:03] LABS: Alanine Aminotransferase 6 U/L (0-41); Albumin Level 4.2 g/dL (3.5-5.2); Alkaline Phosphatase 100 IU/L (40-130); Anion Gap 15.4 (5-19); Aspartate Amino Transferase 13 U/L (0-40); Blood Urea Nitrogen 11 mg/dL (8-23); Calcium 9.1 mg/dL (8.5-10.5); Carbon Dioxide 25 mmol/L (22-29); Chloride 102 mmol/L (98-107); Globulin 2.3 g/dL (1.3-4.6); Glomerular Filtration Rate 56.1 mL/min (90-130); Glucose 92 mg/dL (65-115); Lactate Dehydrogenase 203 U/L (135-225); Osmolality Calculated 285 mOsm/kg (285-295); Potassium 4.4 mmol/L (3.5-5.1); Sodium 138 mmol/L (136-145); Total Bilirubin 0.3 mg/dL (0.15-1.2); Total Protein 6.5 g/dL (6.6-8.7)
== END 2021-08-27 13:36 | disposition home or self-care (01) ==
LOC: ONCMED 13:38
PROVIDERS: PCP Internal Medicine; Visit Provider Internal Medicine Medical Oncology
DX: C91.10 Chronic lymphocytic leukemia of B-cell type not having achieved remission (principal)
CPT/HCPCS: 36415; 80053; 83615; 85025

== ENCOUNTER 2021-08-29 06:28 | Outpatient (CLI) | payer MEDICAID, SELFPAY ==
--- NOTE | 2021-09-01 11:40 | ONC FU_ITS ---
Dr. Ochoa Patient Follow-Up Note Patient: Apolinar Nix Unit #: [id number]: [id number] Dicatated By: Aman Ochoa M.D.Date of Visit:Aug 29, 2021 Onc Med Follow-up/Prog Note Chief Complaint: Head/neck cancer and CLL. 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 He also has small lymphocytic lymphoma/CLL. He had initially presented with a right neck mass in April of 2011. Biopsies at that time were nondiagnostic. He apparently then failed to return for followup. He was seen again in January of 2012 with a new mass in the right neck area. He was then found on laryngoscopy to have squamous cell cancer involving the right tonsil and base of tongue on the right side. Staging PET/CT scan on 04/14/12 showed an FDG positive mass in the right oropharynx measuring 1.3 x 1.7 x 3.5 cm. There were multiple hypermetabolic necrotic right-sided lymph nodes. There were additional smaller nodes on both sides of the neck which were FDG negative. There are mildly prominent axillary lymph nodes bilaterally, FDG negative, without significant mediastinal or hilar adenopathy noted. There was also questionable abdominal adenopathy, metabolically inactive. The possibility of low grade lymphoma was suggested. His subsequent clinical course was complicated by development of pneumonia, but he did recover. Repeat PET/CT scan on 07/05/2012 showed interval progression in the area of the right tonsillar mass. A new FDG avid lymph node was noted in the right lower neck. There are multiple mildly FDG avid lymph nodes in the bilateral cervical, axillary, abdominal, and inguinal regions as well as splenomegaly, and those findings were felt to be suspicious for lymphoma. He underwent right tonsillectomy, partial pharyngectomy, right base of tongue resection and right lymph node dissection on 07/06/2012. Pathology showed grade 3 basaloid type nonkeratinizing squamous cell carcinoma, reportedly P16 positive. The primary tumor was measured at 1.7 cm. It was staged p T1, but the report indicated there was tumor present at the margins. There was involvement in 2 of 27 lymph nodes. There was extracapsular extension noted. He also underwent biopsies of superficial and deep left axillary lymph nodes. Pathology from both sites was consistent with small lymphocytic lymphoma/chronic lymphocytic leukemia. He was given postoperative chemoradiation. He completed radiation on 10/13/2012 to a total dose of 66 Gy. He completed only 2 cycles of cisplatin. His treatment was complicated by poor oral intake and weight loss, despite having nutritional support via PEG tube. He otherwise tolerated the treatment well. He was then followed on observation/expectant management for the head/neck cancer and the chronic lymphocytic leukemia. He had restaging PET/CT on 10/06/2015. It did show fairly extensive lymphadenopathy extending from the cervical through pelvic sidewall basins. The most prominent sites included a portacaval node measuring 6.5 x 3.2 cm and a subcarinal mass measuring 4.4 x 2.2 cm. The findings were felt to be consistent with recurrent low-grade lymphoma. There was no obvious recurrence of the head/neck cancer. During this time he has had follow-up with Dr. Black. He did have an FNA biopsy of one of the posterior cervical lymph nodes, and it did appear to be consistent with lymphoma. He began a trial of therapy with ibrutinib 420 mg daily on 02/25/2016. His white count did show significant increase after starting ibrutinib, as expected. As of 03/17/2016 it peaked at 94,000, but it then began to decline. Other side effects have included fatigue and altered taste. As of his follow-up visit in December 2016 the white count was just slightly elevated at 13,700 with normal hemoglobin at 14.1 g and slightly low platelet count of 119,000. At that point he appeared to have complete resolution of the peripheral lymphadenopathy and splenomegaly. He continued the ibrutinib at 420 mg daily. He remained on observation/expectant management for the tonsillar cancer. As of his follow-up visit in June 2019 I had opted to reduce the ibrutinib dosage to 280 mg daily. At that point there was no evidence of recurrence of the head/neck cancer and no evidence of progression of the CLL. Restaging PET/CT on 10/08/2019 showed no evidence for recurrent or residual malignancy. He continued treatment with ibrutinib 280 mg daily. His medical history is otherwise significant for underlying COPD and chronic anxiety/depression. He has had some chronic neck and back pain and he has had chronic insomnia. He has known history of hepatitis C. He completed treatment for it in June 2015. He has no other medical illnesses. He had previous surgery for neck fracture in 2006. In June 2018 he underwent excision of the basal cell carcinoma from the left parietal scalp. He had previously smoked 1 pack of cigarettes daily. He quit in 2011. He has had some alcohol use in the past, but not heavy. INTERIM HISTORY: He is seen for a follow-up visit. He has been feeling pretty good generally. He has somewhat limited activity, part due to the weather. His ECOG score is 1. His appetite is not real good, but he is eating. His weight recently has been stable. He does not have fever or night sweats. He has not had sore mouth or throat, and he is not having difficulty swallowing. He does not complain of cough, and he has not been having shortness of breath or chest pain. He still occasionally has nausea. He has a little bit of acid reflux. Bowel and bladder function have been okay. He has some joint pain, which is chronic. He does not complain of headache or dizziness, and he has no focal neurologic symptoms. He does have easy bruising. He has had no other bleeding manifestations. Medications: Albuterol 1 (90 mcg/act) Aerosol, solution Inhalation t.i.d., Famotidine 1 Tablet (of 40 mg) Oral daily, Gabapentin 1 (300 mg) Capsule Oral t.i.d., hydrOXYzine HCl 1 Tablet (of 10 mg) Oral t.i.d., Imbruvica 1 Tablet (of 280 mg) Capsule Oral daily, Levothyroxine Sodium 1 Tablet (of 50 mcg) Oral daily, Marinol 1 Tablet (of 5 mg) Capsule Oral b.i.d. PRN, Metoclopramide HCl 1 Tablet (of 10 mg) Oral t.i.d., Mirtazapine 1 (45 mg) Tablet Oral at bedtime, Morphine Sulfate ER 1 (30 mg) Tablet, controlled release Oral b.i.d., Ondansetron 8 mg (of 8 mg) Tablet Dispersable Oral t.i.d. PRN, Pravastatin Sodium 1 Tablet (of 40 mg) Oral daily, Senna 1 Tablet (of 8.6 mg) 5x/d, Symbicort 1 (160-4.5 mcg/act) Aerosol Inhalation b.i.d. Allergies: No Known Allergies. Vital Signs: Performed on Aug 29, 2021 14:46 Height - 74.00 in Weight - 174.4 lbs (HIGH) BSA - 2.05 sq.m BMI - 22.39 Temperature - 98.0 F (LOW) Pulse - 65 /min Respiration - 16 /min BP - 112/75 mm(hg) O2 Sat - 92 % (LOW) Pain - 4 Fatigue - 5 Physical Examination: Constitutional - He looks pretty good generally, Eyes - Sclerae nonicteric. Conjunctivae clear, ENMT - No lesions noted in the oral cavity, Neck - Neck shows only minimal residual induration. There is no mass palpable, Hematologic/Lymphatic - No cervical, clavicular, or axillary adenopathy noted, Respiratory - Lungs sound clear with diminished air movement bilaterally, Cardiovascular - Heart rhythm is regular. There is no murmur, gallop, or rub noted, Abdomen - Soft. Liver is not enlarged. Spleen is not palpable. There is no abdominal mass or ascites noted. There is no inguinal adenopathy, Extremities - No edema. He has extensive purpura, Neurologic - No focal neurologic deficits noted. Lab/Imaging: CBC shows hemoglobin 14.3 g, white blood cell count 12,600, and platelet count 149,000. The absolute lymphocyte count is 4700. Comprehensive metabolic profile shows stable renal function with BUN 11 and creatinine 1.3 mg/dL. The bilirubin and liver enzymes are normal. LDH is normal at 203 U/L. Problem List: 1. Grade 3 basaloid type nonkeratinizing squamous cell carcinoma of the right tonsil and right base of tongue, P16 positive, stage II (pT1, pN2b, M0). 2. Chronic lymphocytic leukemia/well-differentiated lymphoma. 4. COPD. 5. 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 6. Hypothyroidism. 7. Anxiety/depression. Problems Addressed with this Encounter and Plan: 1. Patient with chronic lymphocytic leukemia, discovered as an incidental finding on lymph node biopsy. He had associated peripheral lymphadenopathy and he also had leukocytosis and mild splenomegaly. During follow-up, he was noted to have progression of the lymphoproliferative disorder. On 02/25/2016 he began a trial of ibrutinib at 420 mg daily. He had a very good response to the ibrutinib, though he subsequently did require a dose reduction to 280 mg daily. He tolerated it well at that dosage. During follow-up he has been doing well clinically. He has had increased bruising with the ibrutinib, but he has had no other bleeding manifestations. He has otherwise tolerated it very well and thus far there has been no evidence of progression of the chronic lymphocytic leukemia. He will continue ibrutinib at 280 mg daily. He will have repeat CBC in 3 months and he will be scheduled for follow-up visit in 6 months. 2. Grade 3 basaloid squamous cell carcinoma of the right tonsil/right base of tongue, P16 positive, stage II (pT1, pN2b, M0). He underwent surgical resection in June 2012, and he completed postop chemoradiation in September 2012 to a total radiation dose of 66 Gy. During followup there has been no evidence of recurrence. He continues on expectant management. 3. He has underlying degenerative disease, which is managed adequately with extended release morphine 30 mg every 12 hours. It will be continued at the same dosage. 4. He has small cystic skin lesions on both elbows. He has been referred to the branch officer, and that appointment is still pending. Signed By: Aman Ochoa M.D. <<Signature on File>>
== END 2021-08-29 06:29 | disposition home or self-care (01) ==
LOC: ONCMED 06:29
PROVIDERS: PCP Internal Medicine; Visit Provider Internal Medicine Medical Oncology
DX: C91.10 Chronic lymphocytic leukemia of B-cell type not having achieved remission (principal); J44.9 Chronic obstructive pulmonary disease, unspecified; E03.9 Hypothyroidism, unspecified; M47.899 Other spondylosis, site unspecified; F41.9 Anxiety disorder, unspecified; F32.A Depression, unspecified; Z79.899 Other long term (current) drug therapy
CPT/HCPCS: 99214

== ENCOUNTER 2021-11-26 09:12 | Oncology outpatient (recurring) (ONCR) | payer MEDICAID, SELFPAY ==
[2021-11-26 09:49] LABS: Basophils # 0.1 10^3/uL (0.0-0.1); Basophils % 0.7 %; Eosinophils % 0.3 %; Hematocrit 46.1 % (42.0-52.0); Hemoglobin 14.8 g/dL (11.7-16.6); Lymphocytes # 2.3 10^3/uL (0.8-4.8); Lymphocytes % 30.6 %; Mean Corpuscular HGB Conc 32.1 g/dL (30.0-36.0); Mean Corpuscular Hemoglobin 30.3 pg (28.0-34.0); Mean Corpuscular Volume 94.3 fl (80-94); Mean Platelet Volume 11.1 fL (7.4-10.4); Monocytes # 0.5 10^3/uL (0.2-0.9); Monocytes % 7.3 %; Neutrophils # 4.46 10^3/uL (1.8-7.7); Neutrophils % 60.4 %; Nucleated Red Blood Cells % 0 %; Platelet Count 127 10^3/cmm (130-400); Red Blood Count 4.89 10^6/uL (4.1-5.3); Red Cell Distribution Width 15.1 % (12.1-15.1); White Blood Count 7.4 10^3/uL (4.0-10.0)
== END 2021-12-17 23:59 | disposition home or self-care (01) ==
LOC: ONCMED 09:13
PROVIDERS: PCP Internal Medicine; Visit Provider Internal Medicine Medical Oncology
DX: C91.10 Chronic lymphocytic leukemia of B-cell type not having achieved remission (principal)
CPT/HCPCS: 36415; 85025

== ENCOUNTER 2022-02-01 10:29 | Outpatient (CLI) | payer MEDICAID, SELFPAY ==
--- NOTE | 2022-02-01 10:35 | XRR_ITS ---
PROCEDURE INFORMATION: Exam: XR Right Hip Exam date and time: 02/01/2022 10:36 AM Age: 62 years old Clinical indication: Injury or trauma; Fall; Blunt trauma (contusions or hematomas); Right; Hip; Injury date: 01/19/2022; Additional info: W19. Xxxa - unspecified fall, initial encounter TECHNIQUE: Imaging protocol: Radiologic exam of the Right hip. Views: 1 view hip with pelvis when performed. COMPARISON: CT Chest/Abdomen/Pelvis w IV* 12/17/2017 1:17 PM FINDINGS: Bones/joints: No acute fracture. Soft tissues: Unremarkable. XR/XR hip RT 2-3V wo/w pel* [id number] IMPRESSION: No acute findings.
== END 2022-02-01 10:30 | disposition home or self-care (01) ==
LOC: RAD 10:30
PROVIDERS: PCP Internal Medicine; Visit Provider Emergency Medicine
DX: M25.551 Pain in right hip (principal); R10.2 Pelvic and perineal pain; W19.XXXA Unspecified fall, initial encounter
CPT/HCPCS: 73502

== ENCOUNTER 2022-02-24 10:09 | Oncology outpatient (recurring) (ONCR) | payer MEDICAID, SELFPAY | END 2022-03-19 23:59 | disposition home or self-care (01) | PROVIDERS: PCP Internal Medicine; Visit Provider Internal Medicine Medical Oncology | DX: C91.10 Chronic lymphocytic leukemia of B-cell type not having achieved remission (principal); Z92.3 Personal history of irradiation; Z85.810 Personal history of malignant neoplasm of tongue; Z85.818 Personal history of malignant neoplasm of other sites of lip, oral cavity, and pharynx; M47.9 Spondylosis, unspecified; Z92.21 Personal history of antineoplastic chemotherapy | CPT/HCPCS: 36415; 80053; 83615; 84443; 85025; 99214 ==

== ENCOUNTER 2022-06-02 11:31 | Oncology outpatient (recurring) (ONCR) | payer MEDICAID, SELFPAY ==
[2022-06-02 12:13] LABS: Basophils # 0.1 10^3/uL (0.0-0.1); Basophils % 0.6 %; Eosinophils # 0.1 10^3/uL (0.0-0.8); Eosinophils % 0.5 %; Hematocrit 43.6 % (42.0-52.0); Hemoglobin 13.8 g/dL (11.7-16.6); Lymphocytes # 3.6 10^3/uL (0.8-4.8); Lymphocytes % 35.4 %; Mean Corpuscular HGB Conc 31.7 g/dL (30.0-36.0); Mean Corpuscular Hemoglobin 29.7 pg (28.0-34.0); Mean Corpuscular Volume 93.8 fl (80-94); Mean Platelet Volume 11.6 fL (7.4-10.4); Monocytes # 0.5 10^3/uL (0.2-0.9); Monocytes % 4.7 %; Neutrophils # 5.88 10^3/uL (1.8-7.7); Neutrophils % 58.2 %; Nucleated Red Blood Cells % 0 %; Platelet Count 112 10^3/cmm (130-400); Red Blood Count 4.65 10^6/uL (4.1-5.3); Red Cell Distribution Width 15.3 % (12.1-15.1); White Blood Count 10.1 10^3/uL (4.0-10.0)
== END 2022-06-18 23:59 | disposition home or self-care (01) ==
PROVIDERS: PCP Internal Medicine; Visit Provider Internal Medicine Medical Oncology
DX: C91.10 Chronic lymphocytic leukemia of B-cell type not having achieved remission (principal); C09.9 Malignant neoplasm of tonsil, unspecified
CPT/HCPCS: 84443; 85025

== ENCOUNTER 2022-09-01 11:53 | Oncology outpatient (recurring) (ONCR) | payer MEDICAID, SELFPAY ==
[2022-09-01 13:13] LABS: Basophils % 0.5 %; Eosinophils % 0.5 %; Hematocrit 41.2 % (42.0-52.0); Hemoglobin 12.9 g/dL (11.7-16.6); Lymphocytes # 2.9 10^3/uL (0.8-4.8); Lymphocytes % 37.2 %; Mean Corpuscular HGB Conc 31.3 g/dL (30.0-36.0); Mean Corpuscular Hemoglobin 29.9 pg (28.0-34.0); Mean Corpuscular Volume 95.6 fl (80-94); Monocytes # 0.9 10^3/uL (0.2-0.9); Monocytes % 11.2 %; Neutrophils # 3.87 10^3/uL (1.8-7.7); Neutrophils % 49.7 %; Nucleated Red Blood Cells % 0 %; Platelet Count 109 10^3/cmm (130-400); Red Blood Count 4.31 10^6/uL (4.1-5.3); Red Cell Distribution Width 16.2 % (12.1-15.1); White Blood Count 7.8 10^3/uL (4.0-10.0)
== END 2022-09-16 23:59 | disposition home or self-care (01) ==
PROVIDERS: PCP Internal Medicine; Visit Provider Internal Medicine Medical Oncology
DX: C91.10 Chronic lymphocytic leukemia of B-cell type not having achieved remission (principal); M47.9 Spondylosis, unspecified; Z79.891 Long term (current) use of opiate analgesic; Z79.899 Other long term (current) drug therapy; Z85.89 Personal history of malignant neoplasm of other organs and systems; Z90.09 Acquired absence of other part of head and neck; Z92.21 Personal history of antineoplastic chemotherapy; Z92.3 Personal history of irradiation; Z87.891 Personal history of nicotine dependence
CPT/HCPCS: 36415; 85025; 99214

== ENCOUNTER 2022-12-25 10:44 | Oncology outpatient (recurring) (ONCR) | payer MEDICAID, SELFPAY ==
[2022-12-25 11:01] VITALS: BP 178/104; PULSE 51; RESP 16; TEMP 36.3; O2SAT 98
[2022-12-25 11:04] LABS: Basophils # 0.1 10^3/uL (0.0-0.1); Basophils % 0.8 %; Eosinophils % 0.2 %; Hemoglobin 14.2 g/dL (11.7-16.6); Lymphocytes # 3.1 10^3/uL (0.8-4.8); Mean Corpuscular HGB Conc 31.6 g/dL (30.0-36.0); Mean Corpuscular Hemoglobin 29.2 pg (28.0-34.0); Mean Corpuscular Volume 92.4 fl (80-94); Mean Platelet Volume 12.2 fL (7.4-10.4); Monocytes # 0.5 10^3/uL (0.2-0.9); Monocytes % 5.7 %; Neutrophils # 5.32 10^3/uL (1.8-7.7); Neutrophils % 58.2 %; Nucleated Red Blood Cells % 0 %; Platelet Count 109 10^3/cmm (130-400); Red Blood Count 4.87 10^6/uL (4.1-5.3); Red Cell Distribution Width 13.7 % (12.1-15.1); White Blood Count 9.1 10^3/uL (4.0-10.0)
== END 2023-01-16 23:59 | disposition home or self-care (01) ==
PROVIDERS: Nurse Practitioner; PCP Internal Medicine; Visit Provider Internal Medicine Medical Oncology
DX: C91.10 Chronic lymphocytic leukemia of B-cell type not having achieved remission (principal); Z79.899 Other long term (current) drug therapy; M47.9 Spondylosis, unspecified; Z79.891 Long term (current) use of opiate analgesic; Z85.89 Personal history of malignant neoplasm of other organs and systems; Z90.09 Acquired absence of other part of head and neck; Z92.21 Personal history of antineoplastic chemotherapy; Z92.3 Personal history of irradiation; Z87.891 Personal history of nicotine dependence
CPT/HCPCS: 36415; 85025

== ENCOUNTER → 2023-02-06 08:32 | Outpatient (BNVA) | payer MEDICAID, SELFPAY | PROVIDERS: PCP Family Medicine; Referring Provider Family Medicine; Visit Provider Nurse Practitioner Family | DX: L82.1 Other seborrheic keratosis (principal); S00.00XA Unspecified superficial injury of scalp, initial encounter; X58.XXXA Exposure to other specified factors, initial encounter; L57.0 Actinic keratosis; L72.0 Epidermal cyst; D04.4 Carcinoma in situ of skin of scalp and neck; L82.0 Inflamed seborrheic keratosis; Z85.828 Personal history of other malignant neoplasm of skin; Z87.891 Personal history of nicotine dependence | CPT/HCPCS: 11102; 11103; 17000; 17003; 17110; 99203 ==

== ENCOUNTER 2023-02-20 05:56 | Outpatient (CLI) | payer MEDICAID, SELFPAY ==
--- NOTE | 2023-02-20 06:30 | CT_ITS ---
WS: [id number] LDCT LUNG CANCER SCREENING HISTORY: lung CA screening TECHNIQUE: Axial imaging performed from the apices to 1 cm below the costophrenic angles. Coronal and sagittal reformats are submitted with axial MIP series. All CT scans at [facility] use at least one of these dose optimization techniques: automated exposure control; mA and/or kV adjustment per patient size (includes targeted exams where dose is matched to clinical indication); or iterativ e reconstruction. DLP: 58.27 mGy.cm DIvol: Mean CTDIvol: 0.80 (mGy) COMPARISON: 06/30/2019 Diagnostic quality: Satisfactory Lungs: Moderately hyperexpanded lungs. Centrilobular emphysema. Focal pleural tag LEFT upper lobe is stable since 2019. No mass or nodule. Small amount of mucus in the trachea. Heart: Normal size heart with no pericardial effusion.. Other findings: Mild atherosclerosis aorta. Small mediastinal and hilar lymph nodes. Pulmonary artery size is normal. Small hiatal hernia. CT/CT lung screening [id number] IMPRESSION: LUNG-RADS: 1-Negative FOLLOW UP: 12 Month: Continue annual screening with LDCT OTHER FINDINGS (S MODIFIER): None.
== END 2023-02-20 05:57 | disposition home or self-care (01) ==
PROVIDERS: PCP Family Medicine; Visit Provider Family Medicine
DX: Z12.2 Encounter for screening for malignant neoplasm of respiratory organs (principal); F17.219 Nicotine dependence, cigarettes, with unspecified nicotine-induced disorders; J44.9 Chronic obstructive pulmonary disease, unspecified
CPT/HCPCS: 71271

== ENCOUNTER 2023-02-26 14:26 | Oncology outpatient (recurring) (ONCR) | payer MEDICAID, SELFPAY ==
[2023-02-26 14:31] VITALS: BP 132/71; PULSE 56; RESP 18; TEMP 37.1; O2SAT 96
[2023-02-26 14:50] LABS: Basophils # 0.1 10^3/uL (0.0-0.1); Basophils % 0.6 %; Eosinophils % 0.4 %; Hematocrit 42.9 % (42.0-52.0); Hemoglobin 13.6 g/dL (11.7-16.6); Lymphocytes # 4.7 10^3/uL (0.8-4.8); Mean Corpuscular HGB Conc 31.7 g/dL (30.0-36.0); Mean Corpuscular Hemoglobin 28.7 pg (28.0-34.0); Mean Corpuscular Volume 90.5 fl (80-94); Mean Platelet Volume 12.1 fL (7.4-10.4); Monocytes # 0.6 10^3/uL (0.2-0.9); Monocytes % 6.2 %; Neutrophils # 4.44 10^3/uL (1.8-7.7); Neutrophils % 44.5 %; Nucleated Red Blood Cells % 0 %; Platelet Count 109 10^3/cmm (130-400); Red Blood Count 4.74 10^6/uL (4.1-5.3)
[2023-02-26 15:24] LABS: Alanine Aminotransferase 7 U/L (0-41); Albumin Level 3.9 g/dL (3.5-5.2); Alkaline Phosphatase 89 U/L (40-130); Anion Gap 11.1 (5-19); Aspartate Amino Transferase 16 U/L (0-40); Blood Urea Nitrogen 9 mg/dL (8-23); Carbon Dioxide 31 mmol/L (22-29); Chloride 104 mmol/L (98-107); Globulin 2.3 g/dL (1.3-4.6); Glomerular Filtration Rate 61.1 mL/min (90-130); Glucose 76 mg/dL (65-115); Lactate Dehydrogenase 156 U/L (135-225); Osmolality Calculated 291 mOsm/kg (285-295); Potassium 4.1 mmol/L (3.5-5.1); Sodium 142 mmol/L (136-145); Thyroid Stimulating Hormone 4.75 uIU/mL (0.27-4.20); Total Bilirubin 0.3 mg/dL (0.15-1.2); Total Protein 6.2 g/dL (6.6-8.7)
== END 2023-03-19 23:59 | disposition home or self-care (01) ==
PROVIDERS: Nurse Practitioner; PCP Family Medicine; Visit Provider Internal Medicine Medical Oncology
DX: C91.10 Chronic lymphocytic leukemia of B-cell type not having achieved remission (principal); Z79.899 Other long term (current) drug therapy; M47.9 Spondylosis, unspecified; Z79.891 Long term (current) use of opiate analgesic; Z85.89 Personal history of malignant neoplasm of other organs and systems; Z90.09 Acquired absence of other part of head and neck; Z92.21 Personal history of antineoplastic chemotherapy; Z92.3 Personal history of irradiation; Z87.891 Personal history of nicotine dependence
CPT/HCPCS: 36415; 80053; 83615; 84443; 85025; 99214

== ENCOUNTER → 2023-05-01 07:45 | Outpatient (BNVA) | payer MEDICAID, SELFPAY | PROVIDERS: PCP Family Medicine; Visit Provider Nurse Practitioner Family | DX: L82.1 Other seborrheic keratosis (principal); S00.00XA Unspecified superficial injury of scalp, initial encounter; X58.XXXA Exposure to other specified factors, initial encounter; L57.0 Actinic keratosis; L72.0 Epidermal cyst; D69.2 Other nonthrombocytopenic purpura; C91.10 Chronic lymphocytic leukemia of B-cell type not having achieved remission; Z85.828 Personal history of other malignant neoplasm of skin; D48.5 Neoplasm of uncertain behavior of skin; L21.8 Other seborrheic dermatitis | CPT/HCPCS: 11102; 17000; 99214 ==

== ENCOUNTER 2023-06-04 14:13 | Oncology outpatient (recurring) (ONCR) | payer MEDICAID, SELFPAY ==
[2023-06-04 15:01] LABS: Basophils # 0.1 10^3/uL (0.0-0.1); Basophils % 0.6 %; Eosinophils % 0.4 %; Hematocrit 41.9 % (37-53); Lymphocytes # 3.6 10^3/uL (0.8-4.8); Lymphocytes % 40.4 %; Mean Corpuscular HGB Conc 31.7 g/dL (30-55); Mean Corpuscular Hemoglobin 28.8 pg (27-33); Mean Corpuscular Volume 90.7 fl (82-101); Mean Platelet Volume 11.6 fL (7.4-10.4); Monocytes # 0.5 10^3/uL (0.2-0.9); Monocytes % 5.7 %; Neutrophils # 4.53 10^3/uL (1.8-7.7); Neutrophils % 50.8 %; Nucleated Red Blood Cells % 0 %; Platelet Count 118 10^3/cmm (157-399); Red Blood Count 4.62 10^6/uL (3.85-5.65); White Blood Count 8.92 10^3/uL (3.29-11.43)
[2023-06-04 15:35] LABS: Alanine Aminotransferase 10 U/L (0-41); Albumin Level 3.9 g/dL (3.5-5.2); Alkaline Phosphatase 98 U/L (40-130); Anion Gap 13.4 (5-19); Aspartate Amino Transferase 15 U/L (0-40); Blood Urea Nitrogen 8 mg/dL (8-23); Calcium 8.9 mg/dL (8.5-10.5); Carbon Dioxide 30 mmol/L (22-29); Chloride 102 mmol/L (98-107); Globulin 2.5 g/dL (1.3-4.6); Glomerular Filtration Rate 61.1 mL/min (90-130); Glucose 88 mg/dL (65-115); Lactate Dehydrogenase 177 U/L (135-225); Osmolality Calculated 290 mOsm/kg (285-295); Potassium 4.4 mmol/L (3.5-5.1); Sodium 141 mmol/L (136-145); Thyroid Stimulating Hormone 3.58 uIU/mL (0.27-4.20); Total Bilirubin 0.2 mg/dL (0.15-1.2); Total Protein 6.4 g/dL (6.6-8.7)
== END 2023-06-18 23:59 | disposition home or self-care (01) ==
LOC: ONCMED 14:14
PROVIDERS: PCP Family Medicine; Visit Provider Internal Medicine Medical Oncology
DX: C91.10 Chronic lymphocytic leukemia of B-cell type not having achieved remission (principal); Z79.899 Other long term (current) drug therapy; M47.9 Spondylosis, unspecified; Z79.891 Long term (current) use of opiate analgesic; Z85.89 Personal history of malignant neoplasm of other organs and systems; Z90.09 Acquired absence of other part of head and neck; Z92.21 Personal history of antineoplastic chemotherapy; Z92.3 Personal history of irradiation; Z87.891 Personal history of nicotine dependence
CPT/HCPCS: 80053; 83615; 84443; 85025; 99214

== ENCOUNTER 2023-09-07 13:04 | Oncology outpatient (recurring) (ONCR) | payer MEDICAID, SELFPAY ==
[2023-09-07 13:49] LABS: Basophils # 0.1 10^3/uL (0.0-0.1); Basophils % 0.5 %; Eosinophils # 0.1 10^3/uL (0.0-0.8); Eosinophils % 0.7 %; Hematocrit 42.6 % (37-53); Lymphocytes # 5.7 10^3/uL (0.8-4.8); Mean Corpuscular HGB Conc 31.7 g/dL (30-55); Mean Corpuscular Hemoglobin 27.7 pg (27-33); Mean Corpuscular Volume 87.3 fl (82-101); Mean Platelet Volume 10.9 fL (7.4-10.4); Monocytes # 0.6 10^3/uL (0.2-0.9); Monocytes % 4.7 %; Neutrophils # 5.85 10^3/uL (1.8-7.7); Neutrophils % 47.4 %; Nucleated Red Blood Cells % 0 %; Platelet Count 133 10^3/cmm (157-399); Red Blood Count 4.88 10^6/uL (3.85-5.65); Red Cell Distribution Width 14.1 % (12.1-15.1); White Blood Count 12.35 10^3/uL (3.29-11.43)
[2023-09-07 14:04] LABS: Alanine Aminotransferase < 5 U/L (0-41); Albumin Level 3.9 g/dL (3.5-5.2); Alkaline Phosphatase 92 U/L (40-130); Anion Gap 13.3 (5-19); Aspartate Amino Transferase 11 U/L (0-40); Blood Urea Nitrogen 12 mg/dL (8-23); Calcium 8.8 mg/dL (8.5-10.5); Carbon Dioxide 28 mmol/L (22-29); Chloride 102 mmol/L (98-107); Globulin 2.5 g/dL (1.3-4.6); Glomerular Filtration Rate 55.8 mL/min (90-130); Glucose 88 mg/dL (65-115); Lactate Dehydrogenase 163 U/L (135-225); Osmolality Calculated 287 mOsm/kg (285-295); Potassium 4.3 mmol/L (3.5-5.1); Sodium 139 mmol/L (136-145); Total Bilirubin 0.3 mg/dL (0.15-1.2); Total Protein 6.4 g/dL (6.6-8.7)
== END 2023-09-17 23:59 | disposition home or self-care (01) ==
PROVIDERS: Nurse Practitioner Family; PCP Family Medicine; Visit Provider Internal Medicine Medical Oncology
DX: C91.10 Chronic lymphocytic leukemia of B-cell type not having achieved remission (principal); G89.4 Chronic pain syndrome; Z85.818 Personal history of malignant neoplasm of other sites of lip, oral cavity, and pharynx; Z87.891 Personal history of nicotine dependence; R22.2 Localized swelling, mass and lump, trunk
CPT/HCPCS: 36415; 80053; 83615; 85025; 99214

== ENCOUNTER 2023-10-02 08:32 | Outpatient (CLI) | payer MEDICAID, SELFPAY ==
--- NOTE | 2023-10-02 10:00 | CT_ITS ---
WS: [id number] CT CHEST, ABDOMEN, AND PELVIS TECHNIQUE: Contrast-enhanced CT of the chest, abdomen, and pelvis with coronal and sagittal reformatt ed images. CLINICAL INFORMATION: new left groin mass COMPARISON: CT lung screening 02/20/2023 DLP: 580.[address] scans at [facility] use at least one of these dose optimization techniques: automated e xposure control; mA and/or kV adjustment per patient size (includes targeted exams where dose is matc hed to clinical indication); or iterative reconstruction. CT CHEST: Interval development of a RIGHT hilar soft tissue mass measuring approximately 3.3 x 1.9 cm suspiciou s for neoplasm. Associated RIGHT bronchovascular thickening. Mild narrowing of the adjacent RIGHT low er lobe bronchi. RIGHT hilar lymphadenopathy. Additional enhancing subcarinal lymphadenopathy with lo w-attenuation change likely due to necrosis. Findings are new compared to the prior lung screening CT . Recommend further evaluation with bronchoscopy. Normal caliber thoracic aorta. Aortic calcification . Normal caliber descending thoracic aorta. No axillary lymphadenopathy. Moderate chronic emphysematous changes. Fibrosis in the lung apices. Bronchiectasis RIGHT lower lobe. Patchy tree-in-bud opacities in the RIGHT lower lobe may be infectious or inflammatory. Some of this may be due to postobstructive bronchiolitis. Proximal main pulmonary arteries are normal Lytic lesion inferior endplate of T10 is new from the prior examination suspicious for metastatic dis ease. Lytic lesion measures approximately 1.8 x 1.5 cm. Recommend further evaluation with bone scan o r additional staging with PET/CT. CT ABDOMEN AND PELVIS: No enhancing hepatic lesions. Mild splenomegaly. Normal portal vein and splenic vein. Small splenule. Gallbladder is contracted. Mild prominence of the common bile duct. Normal pancreatic parenchymal en hancement. Normal caliber abdominal aorta. Aortic calcification. Celiac and SMA are patent. Adrenal g lands are normal. Normal renal parenchymal enhancement. No hydronephrosis. A few periaortic and aorto caval lymph nodes not pathologically enlarged. Prostate enlargement with calcification. Recommend correlation PSA. Sigmoid constipation. Sigmoid div erticulosis. No evidence of acute diverticulitis. No high-grade small or large bowel obstruction. No pelvic or inguinal lymphadenopathy. Mild disc bulg ing L4-L5 and L5-S1. IMPRESSION: 1. Interval development of RIGHT hilar mass compatible with neoplasm. Recommend further evaluation w ith bronchoscopy. Recommend pulmonary consultation. 2. Enhancing RIGHT hilar and subcarinal lymphadenopathy. 3. Lytic lesion involving the inferior endplate T10 suspicious for metastatic disease. Recommend fur ther evaluation with bone scan or staging with PET/CT. 4. Mild hepatomegaly and splenomegaly. 5. No adenopathy in the abdomen or pelvis. 6. Small esophageal hiatal hernia. 7. Sigmoid diverticulosis. No evidence of acute diverticulitis. 8. Enlarged prostate measuring 4.6 cm. Recommend correlation PSA. 9. No evidence of LEFT groin mass, lesion, or lymphadenopathy.
[2023-10-02] MEDS: iohexol 350 mg/mL 500 mL Btl (per mL) IV (10:01)
[2023-10-02] MEDS: iohexol 350 mg/mL 500 mL Btl (per mL) PO (10:01)
== END 2023-10-02 08:33 | disposition home or self-care (01) ==
LOC: RAD 08:33
PROVIDERS: PCP Family Medicine; Visit Provider Nurse Practitioner Family
DX: C91.10 Chronic lymphocytic leukemia of B-cell type not having achieved remission (principal); C09.9 Malignant neoplasm of tonsil, unspecified; C79.51 Secondary malignant neoplasm of bone; R91.8 Other nonspecific abnormal finding of lung field; R59.0 Localized enlarged lymph nodes; R16.2 Hepatomegaly with splenomegaly, not elsewhere classified; K44.9 Diaphragmatic hernia without obstruction or gangrene; K57.30 Diverticulosis of large intestine without perforation or abscess without bleeding; N40.0 Benign prostatic hyperplasia without lower urinary tract symptoms
CPT/HCPCS: 71260; 74177; Q9967

== ENCOUNTER 2023-10-14 15:29 | Oncology outpatient (recurring) (ONCR) | payer MEDICAID, SELFPAY ==
[2023-10-05 12:33] LABS: Hematocrit 47.3 % (37-53); Mean Corpuscular HGB Conc 31.7 g/dL (30-55); Mean Corpuscular Hemoglobin 27.7 pg (27-33); Mean Corpuscular Volume 87.3 fl (82-101); Mean Platelet Volume 11.9 fL (7.4-10.4); Platelet Count 166 10^3/cmm (157-399); Red Blood Count 5.42 10^6/uL (3.85-5.65); White Blood Count 13.97 10^3/uL (3.29-11.43)
[2023-10-05 13:02] LABS: Alanine Aminotransferase < 5 U/L (0-41); Alkaline Phosphatase 132 U/L (40-130); Anion Gap 14.6 (5-19); Aspartate Amino Transferase 13 U/L (0-40); Blood Urea Nitrogen 9 mg/dL (8-23); Calcium 9.6 mg/dL (8.5-10.5); Carbon Dioxide 30 mmol/L (22-29); Chloride 99 mmol/L (98-107); Creatinine Clr Calc Pharmacy 60.8389; Globulin 2.8 g/dL (1.3-4.6); Glomerular Filtration Rate 61.1 mL/min (90-130); Glucose 84 mg/dL (65-115); Lactate Dehydrogenase 207 U/L (135-225); Osmolality Calculated 286 mOsm/kg (285-295); Potassium 4.6 mmol/L (3.5-5.1); Sodium 139 mmol/L (136-145); Total Bilirubin 0.4 mg/dL (0.15-1.2); Total Protein 6.8 g/dL (6.6-8.7)
[2023-10-05 13:17] LABS: Slide Review Slide Review Perform
[2023-10-05 13:18] LABS: Absolute Neutrophil 6.8 10^3/cmm (1.4-6.5); Absolute Segmented Neutrophil 6.7 10/cmm (1.6-7.1); Band Neutrophils Absolute 0.1 10^3/cmm (0.0-1.2); Eosinophils 0 %; Lymphocytes 38 %; Lymphocytes Absolute 6.6 10^3/cmm (1.2-3.4); Monocytes Absolute 0.6 10^3/cmm (0.1-0.6); Platelet Estimate Normal (Normal); Segmented Neutrophils 48 %; Total Cells Counted 100 (0-100)
--- NOTE | 2023-10-07 08:21 | N.ONRAD NP_ITS ---
Radiation Oncology New Patient Visit Patient: Apolinar Nix MR#: [id number] : 1960 Age: 63 Sex: Male Dictated by: Josh Martínez M.D. Date of Service: 10/06/2023 Referring Physician(s) : Aman Ochoa M.D. 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 Radiotherapy to date: Course: Course1, Treatment Site: H&N, Ref. ID: H&N, Energy: 6X, Dose/Fx (cGy): 200, #Fx: 20 / 20, Dose Correction (cGy): 0, Total Dose Delivered (cGy): 4,000, Start Date: 08/24/2012, End Date: 09/21/2012, Elapsed Days: 28 Course: Course1, [facility], Ref. ID: H&N, Energy: 6X, Dose/Fx (cGy): 200, #Fx: 10 / 10, Dose Correction (cGy): 0, Total Dose Delivered (cGy): 2,000, Start Date: 09/22/2012, End Date: 10/07/2012, Elapsed Days: 15 Course: Course1, Treatment Site: H&N BOOST 66, Ref. ID: [id number], Energy: 15X/6X, Dose/Fx (cGy): 200, #Fx: 2 / 2, Dose Correction (cGy): 0, Total Dose Delivered (cGy): 400, Start Date: 10/11/2012, End Date: 10/12/2012, Elapsed Days: 1 Course: Course1, Treatment Site: H&N BOOST 2, Ref. ID: [id number] 66, Energy: 15X/6X, Dose/Fx (cGy): 200, #Fx: , Dose Correction (cGy): 0, Total Dose Delivered (cGy): 200, Start Date: 10/13/2012, End Date: 10/13/2012, Elapsed Days: 0 Course: Course1, Treatment Site: [facility], Ref. ID: [facility], Energy: 6X, Dose/Fx (cGy): 200, #Fx: 20 / 20, Dose Correction (cGy): 0, Total Dose Delivered (cGy): 4,000, Start Date: 08/24/2012, End Date: 09/21/2012, Elapsed Days: 28 Course: Course1, Treatment Site: [facility], Ref. 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 Radiation treatment summarized above completed 09/2012. CLL stable under systemic treatment with Imbruvica. 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 Awaiting biopsy confirmation. Currently modestly active at home and easily fatigued. 15 pound weight last since 02/2024 despite good appetite. Left hip and groin pain x 2 months progressive now 6 on 10 scale can be 9 on 10 scale. On MSContin and now adding MS04 for breakthrough pain. CT chest reviewed: right hilar mass extending into subcarinal region.T10 sclerotic lytic vert body lesion, left ant acetabular soft tissue mass with bone erosion into ischium. Current Medications: Albuterol, famotidine, famotidine, fentaNYL, gabapentin, gabapentin, hydrOXYzine HCl, ibrutinib, imbruvica, levothyroxine Sodium, levothyroxine Sodium, lunesta, magnesium Sulfate, mannitol, marinol, marinol, metoclopramide HCl, metoclopramide HCl, mirtazapine, morphine Sulfate, morphine Sulfate ER, morphine Sulfate ER, ondansetron, potassium Chloride, pravastatin Sodium, ranitidine HCl, senna, symbicort, zofran ODT. Allergies: No Known Allergies Medical History: Anxiety, chronic insomnia, chronic neck and back pain, chronic obstructive pulmonary disease, depression, lymphosarcoma. No history of collagen vascular disease. No previous radiation therapy. Surgical History: Back sugery in 03/2017, colonoscopy in 03/2017, covid vaccine #1 moderna in 11/2020, covid vaccine #2 moderna in 12/2020, laryngoscopy with bx on 04/13/2012, left axillary lymph node biopsy on 07/15/2012, neck fracture surgery in 2006, right tosillectomy,partial pharyngectomy,right base of tongue resection and lymph node dissection on 07/06/2012 and tracheostomy placement on 07/06/2012. Family History: Father is having experienced Cancer history consists of Lymph Nodes cancer at age 64 (cause of ). Mother is alive having experienced hypertension and COPD. Family history significant for father having with lymphoma at age 64. Mother has high blood pressure and COPD. She is still living at age 72. Three siblings are in good health. Social History: second time x 20 years. 3 step children. 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 He was in the [place] in 1979???s. Smoker 2 ppd quit 2013. Last screened on 08/29/2021 - Yes - but has quit for 6 years. Smoked 1.0 pack/day for 30 years (30 pack years). Last screened on 08/29/2021 - Past drinker. Patient indicated use of the following products: cigarettes. Vital Signs: Performed on 10/06/2023 3:07 PM BMI - 19.567 kg/m2, Height - 74 in, Weight - 152.4 lbs, Temperature - 97.8 f, Pulse - 61 /min, Respiration - 16 /min, O2 Sat - 97 %, Pain - 6, Fatigue - 0 and BP - 149/ 87 mm(hg)(high/). Physical Exam: This, elderly appearing for age. No palpable cervical adenopathy. Oral cavity clear, no mucosal lesions. Lungs clear abd benign, no pedal edema or clubbing. 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 Imaging: See HPI Impression: New dx of st IV bronchogenic carcinoma with symptomatic involvement of right acetabular region. Await bx. In mean time will treat right acetabular region to 20 Gy in 5 fractions to palliate pain. Discussed with patient and Dr. Ochoa. Plan: Signed by: 10/07/2023 8:19:27 AM <<Signature on File>> Time spent with patient: CPT Code: CPT Code:
--- NOTE | 2023-10-13 16:07 | ONCRAD TMN_ITS ---
Radiation Oncology Weekly Treatment Management Patient: Boyd Jiang> MR#: [id number] : 1960> Attending Physician: Dr. Cathi Snowden Date of Service: 10/13/2023 Referring Physician(s) : Aman Ochoa M.D. Diagnosis: C79.51 - Secondary malignant neoplasm of bone, Diagnosed 10/05/2023 (Active) C91.10 - Chronic lymphocytic leukemia of B-cell type not having achieved remission, Diagnosed 10/02/2016 (Active) C83.08 - Small cell b-cell lymphoma, lymph nodes of multiple sites, Diagnosed 07/29/2012 (Active) C09.9 - Malignant neoplasm of tonsil, unspecified, Diagnosed 07/07/2012 (In Remission) Stage ISHA, T1o, N2boh, M0 Radiotherapy to date: Course: LT Hip 2023, Treatment Site: LT Hip 20Gy, Ref. ID: [id number], Energy: 15X, Dose/Fx (cGy): 400, #Fx: 4 / 5, Dose Correction (cGy): 0, Total Dose Delivered (cGy): 1,600, Start Date: 10/08/2023, Elapsed Days: 5 Reason for visit: The patient is being seen today as part of their regularly scheduled weekly on treatment visits to assess for acute toxicities from radiotherapy. Review of Systems: Noticed no changes in pain. He has had no nausea vomiting or diarrhea. Vital Signs: Performed on 10/13/2023 3:42 PM BMI - 19.721 kg/m2, Height - 74 in, Weight - 153.6 lbs, Temperature - 97.3 f, Pulse - 59 /min (low), Respiration - 18 /min, O2 Sat - 97 %, Pain - 5, Fatigue - 0 and BP - 148/ 85 mm(hg)(high/). Physical Exam: Patient has had no change in exam Imaging: Radiation therapy imaging related to accurate target localization (i.e. KV, MV and CBCT) was reviewed. Appropriate changes, if any, were made to ensure treatment accuracy. Plan: Will continue with his treatment. He has 1 more treatment tomorrow Signed by: Dr. Cathi Snowden 10/13/2023 4:06:38 PM
--- NOTE | 2023-10-14 15:54 | N.ONRD TS_ITS ---
Radiation Oncology Treatment Summary Patient: Apolinar Nix MR#: [id number] : 1960 Age: 63 Sex: Male Dictated by: Dr. Cathi Snowden Date of Service: 10/14/2023 Referring Physician(s) : Aman Ochoa M.D. Diagnosis: C79.51 - Secondary malignant neoplasm of bone, Diagnosed 10/05/2023 (Active) C91.10 - Chronic lymphocytic leukemia of B-cell type not having achieved remission, Diagnosed 10/02/2016 (Active) C83.08 - Small cell b-cell lymphoma, lymph nodes of multiple sites, Diagnosed 07/29/2012 (Active) C09.9 - Malignant neoplasm of tonsil, unspecified, Diagnosed 07/07/2012 (In Remission) Stage ISHA, T1o, N2boh, M0 Radiotherapy to Date: Course: Course1, Treatment Site: &N, Ref. ID: H&N, Energy: 6X, Dose/Fx (cGy): 200, #Fx: 20 / 20, Dose Correction (cGy): 0, Total Dose Delivered (cGy): 4,000, Start Date: 08/24/2012, End Date: 09/21/2012, Elapsed Days: 28 Course: Course1, [facility], Ref. ID: H&N, Energy: 6X, Dose/Fx (cGy): 200, #Fx: 10 / 10, Dose Correction (cGy): 0, Total Dose Delivered (cGy): 2,000, Start Date: 09/22/2012, End Date: 10/07/2012, Elapsed Days: 15 Course: Course1, Treatment Site: H&N BOOST 66, Ref. ID: PTV 66, Energy: 15X/6X, Dose/Fx (cGy): 200, #Fx: 2 / 2, Dose Correction (cGy): 0, Total Dose Delivered (cGy): 400, Start Date: 10/11/2012, End Date: 10/12/2012, Elapsed Days: 1 Course: Course1, Treatment Site: H&N BOOST 2, Ref. ID: PTV 66, Energy: 15X/6X, Dose/Fx (cGy): 200, #Fx: / , Dose Correction (cGy): 0, Total Dose Delivered (cGy): 200, Start Date: 10/13/2012, End Date: 10/13/2012, Elapsed Days: 0 Course: Course1, Treatment Site: [facility], Ref. ID: [id number], Energy: 6X, Dose/Fx (cGy): 200, #Fx: 20 / 20, Dose Correction (cGy): 0, Total Dose Delivered (cGy): 4,000, Start Date: 08/24/2012, End Date: 09/21/2012, Elapsed Days: 28 Course: Course1, Treatment Site: [facility], Ref. ID: SUPRACLAV, Energy: 6X, Dose/Fx (cGy): 200, #Fx: 5 / 5, Dose Correction (cGy): 0, Total Dose Delivered (cGy): 1,000, Start Date: 09/22/2012, End Date: 09/29/2012, Elapsed Days: 7 Course: LT Hip 2023, Treatment Site: LT Hip 20Gy, Ref. ID: [id number], Energy: 15X, Dose/Fx (cGy): 400, #Fx: 5 / 5, Dose Correction (cGy): 0, Total Dose Delivered (cGy): 2,000, Start Date: 10/08/2023, End Date: 10/14/2023, Elapsed Days: 6 Clinical Summary: The patient tolerated RT well. After the 5th treatment he had yet to experience any relief. He had no side effects Plan: End of treatment today. Continue on the above medication until the skin reaction resolves. Follow up in one month. Signed by: Dr. Cathi Snowden>10/14/2023 3:52:45 PM <<Signature on File>>
== END 2023-10-18 23:59 | disposition home or self-care (01) ==
PROVIDERS: Internal Medicine Medical Oncology; PCP Family Medicine; Visit Provider Radiology Radiation Oncology
DX: Z51.0 Encounter for antineoplastic radiation therapy (principal); C91.10 Chronic lymphocytic leukemia of B-cell type not having achieved remission; C79.51 Secondary malignant neoplasm of bone
CPT/HCPCS: 36415; 77290; 77295; 77300; 77334; 77336; 77387; 77412; 80053; 83615; 85007; 85025; 99024; 99204; 99205; 99215

== ENCOUNTER 2023-10-20 10:13 | Day surgery (SDC) | payer MEDICAID, SELFPAY ==
[2023-10-20] VITALS (11 sets, daily range): BP systolic 112–144; BP diastolic 67–84; PULSE 56–83; RESP 16–25; TEMP 36–36.4; O2SAT 90–94; BMI 18.8
--- NOTE | 2023-10-20 10:42 | ANES.PREANE2 ---
Pre-Anesthetic Assessment Height/Weight: Height 1.88 m Operation Date: 10/20/23 11:50 Proposed Procedures p Ebus/01634, 04446, 34295, 28078, 76354, 38176, 82210, 04089, 86638, 82960, 90083, 72855](Not Applicable) - Panda Cummings DatarMD Familial anesthetic complications: None Was Beta Mary taken within 24 hours: N/A Was Clonidine taken within 24 hours: N/A Last intake: > 8 hrs Social No alcohol and No tobacco Exam alert, oriented x 3, clear to auscultation bilaterally and regular rate & rhythm Airway Mallampati: Class I Dentition: false and other Comments: Comments: Hx tonsillar cancer/neoplasm w/ radical neck lymph node dissection and tongue base resection Pulmonary Chronic Obstructive Pulmonary Disease GI Gastroesophageal Reflux Disease Metabolic Hyperlipidemia and Morbid Obesity Musc/[facility] Leukemia Anesthetic Plan ASA status: 4 Anesthesia: General Risk of > 500 ml blood loss (7ml/kg in children): No Medications/Allergies Home Medications Medication Instructions Recorded Confirmed Last Taken Type hydroxyzine HCl 10 mg tablet 10 mg PO TID PRN Anxiety 04/26/20 10/20/23 10/20/23 History pravastatin 40 mg tablet 40 mg PO DAILY 04/26/20 10/20/23 10/19/23 History sennosides 8.6 mg tablet (Natural 8.6 mg PO TID 04/26/20 10/15/23 10/15/23 History Senna Laxative) levothyroxine 88 mcg capsule 88 mcg PO DAILY #90 caps 02/26/23 10/20/23 10/20/23 Rx morphine 15 mg immediate release 15 mg PO Q6H PRN pain 30 days #120 10/05/23 10/20/23 10/19/23 Rx tablet tabs seated wheeled walker #1 ea 10/06/23 10/09/23 Unknown Rx morphine 30 mg tablet,extended 60 mg (2 x 30 mg) PO Q12H 30 days 10/08/23 10/20/23 10/19/23 Rx release #120 tabs budesonide 160 mcg-glycopyr 9 2 inh inhalation BID 10/09/23 10/20/23 10/19/23 History mcg-formot 4.8 mcg/actuation HFA inhaler (Breztri Aerosphere) metoclopramide HCl 10 mg tablet See Rx Instructions .Route 10/13/23 10/20/23 10/20/23 Rx .COMPLEX #120 tabs famotidine 40 mg tablet 40 mg PO DAILY 10/15/23 10/20/23 10/20/23 History gabapentin 300 mg capsule 300 mg PO TID 10/15/23 10/20/23 10/15/23 History ibrutinib 280 mg tablet (Imbruvica) 280 mg PO DAILY 10/15/23 10/20/23 10/19/23 History ondansetron 8 mg disintegrating 8 mg PO DAILY 10/15/23 10/20/23 10/20/23 History tablet Allergies Allergy/AdvReac Type Severity Reaction Status Date / Time No Known Allergies Allergy Verified 10/20/23 10:34 [facility] Anesthesia Medical History Degenerative joint disease of spine History of hepatitis C Completed treatment in 2014 Anxiety Depression Chronic insomnia Chronic obstructive pulmonary disease 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 - T1o, N2boh, M0 Chronic lymphocytic leukemia of B-cell type not having achieved remission Surgical History Status post surgical removal of malignant neoplasm of skin (2017) Excision of basal cell carcinoma from the left parietal scalp History of lymph node biopsy (07/15/12) Left axillary lymph node biopsy History of cervical spinal surgery (2006) Surgery for neck fracture History of back surgery (2016) History of laryngoscopy Hx of tonsillectomy (07/06/12) Right tonsillectomy, partial pharyngectomy, right base of tongue resection, and right modified radical neck dissection Family History Mother Hypertension Father Diabetes Cancer lymphoma Grandfather Cancer Paternal-unknown Other CAD (coronary artery disease) Hyperlipidemia Denies family history of Clotting disorder Dementia Psychiatric illness Chronic kidney disease (CKD) Suicide Anesthesia complication Bleeding disorder Lung disease Stroke Social History Smoking and tobacco/nicotine status: former use of tobacco/nicotine Quit status (tobacco/nicotine): has quit using Year quit tobacco: 2013 Former quit date comment: 2 ppd X 41 years Alcohol intake: never Substance/Drug Use: current Substance/Drug use frequency: daily Other substance/drug use details: Medical Lives independently: Yes Marital status: Number of children: 3 Current occupational status: disabled Special nati needs: No Agree to transfusion: Yes Data Anesthesia Cardiac Studies: No Data to Display
[2023-10-20] MEDS: sodium chloride 0.9% 1,000 ML 30 ML IV (10:48)
--- NOTE | 2023-10-20 11:09 | W.PM.OPSUD ---
Surgery/Procedure H&P Update DATE OF PROCEDURE: October 20, 2023 DATE H&P PERFORMED: 10/09/23 H&P UPDATE INFORMATION: I have reviewed H&P completed within last 30 days, I have examined patient prior to procedure and No changes to prior documentation CHANGES TO PREVIOUS DOCUMENTATION: None PREOP DIAGNOSIS: Suspected lung malignancy PRIMARY INDICATION FOR PROCEDURE: Right hilar mass and hilar/mediastinal lymphadenopathy-suspected lung malignancy PLANNED PROCEDURE: Operation Date: 10/20/23 11:50 Proposed Procedures p Ebus/05977, 53884, 10920, 01262, 33680, 68007, 19570, 27443, 70586, 09203, 76449, 73792](Not Applicable) - Panda Cummings DatarMD
[2023-10-20] MEDS: lidocaine 1% INJ 10 mL (per mL) XX (12:10)
[2023-10-20 12:46] LABS: Apprearance, Bronch Wash Cloudy (CLEAR); Color, Bronc Wash Red; Cyto Order Verification Order Verified; PATH Referral Yes; Total Cells Counted Bronch 200
--- NOTE | 2023-10-20 13:13 | XR_ITS ---
WS: [id number] Examination: XR chest 1V portable [id number] Reason for Exam: POST BRONCH/EBUS Date: October 20, 2023 Comparison: October 16, 2016 Findings: There is a right lower lung infiltrate. There is no failure or effusion. There is apical thickening and scarring No pneumothorax is seen. The heart is not enlarged. The mediastinum not widened. The central jada are prominent. Impression: There is a right lower lobe infiltrate noted.
--- NOTE | 2023-10-20 14:20 | ANE.PACU2 ---
Inpatient post-anesthesia follow up: Airway intact: Yes Vital signs: Temperature 96.8 F Pulse Rate 64 Respiratory Rate 20 Blood Pressure 119/79 Pulse Oximetry 90 Oxygen Delivery Me thod Room Air Oxygen Flow Rate 1 Fraction of Inspir ed Oxygen Hydration adequate: Yes Nausea and vomiting: No Pain level: 1 Mental status: Baseline
--- NOTE | 2023-10-21 09:20 | PM.OP ---
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 He also has small lymphocytic lymphoma/CLL referred by oncology for interval development of right hilar soft tissue mass suspicious for neoplasm. After all his treatments for head and neck cancer/CLL-patient had restaging PET/CT on 10/08/2019 showed no evidence for recurrent or residual malignancy. At that point he was tolerating the ibrutinib well, and there was no evidence of recurrence of the head/neck cancer and no evidence of progression of the CLL. He continued treatment with ibrutinib at 280 mg daily. As of his follow-up visit in May 2023 he was doing well clinically. He was seen again on 09/07/2023. At that point he reported decreased appetite and a 9 pound weight loss. He also complained of left groin pain. He had further evaluation with CT scans of the chest, abdomen, and pelvis on 10/02/2023 which showed interval development of a right hilar soft tissue mass measuring 3.3 x 1.9 cm, suspicious for neoplasm. There was associated right hilar and enhancing subcarinal lymphadenopathy. Also noted to be a lytic lesion involving the inferior endplate of the T10 vertebral body consistent with metastasis. Also noted was a bony metastatic lesion with soft tissue component involving the left anterior acetabulum at the pubic root measuring 2.3 x 2.2 cm. Tells me that he was a former smoker with hx of 2 ppd X 41 years, quit in 2013. Currently he is using breztri and albuterol. inhalers helps. Given his significant smoking history-suspect these lesions are either new pulmonary malignancy versus recurrence of lymphoma. Today scheduled for endobronchial ultrasound guided biopsies. Procedure: Dx Bronchoscope w/BAL Dx Bronchoscopy w/Bronchial or Endobronchial biopsy(s), single or multiple sites Bronchoscopy w/ therapeutic aspiration of the tracheobronchial tree (clearance of airway secretions, removal of mucus plugs) EBUS Sampling >=3 nodes Indication: CT 10/02/2023-right hilar mass and moderate right pleural effusion Anesthesia: General anesthesia. Local anesthesia: The ирина in the right and left mainstem bronchi were anesthetized with 1% lidocaine, 3 mL. Description of the procedure: The procedure was explained to the patient and the consent was obtained. The patient was brought to the OR. The patient underwent induction for general anesthesia and endotracheal tube was placed. The bronchoscope was advanced through the ET tube. The distal trachea was visualized. There were copious amount of secretions which were suctioned right away. Tracheal mucosa appeared normal, no endotracheal lesion was seen. The ирина was sharp. 1 mL each of 1% lidocaine was instilled in the trachea the right and left mainstem bronchi for local anesthesia. In a systematic manner bilateral bronchial tree was then examined. The bronchoscope was then introduced into the right mainstem bronchus. I can visualize right upper lobe opening as well as a right middle lobe opening however there is near complete occlusion of right lower lobe opening with infiltrating mass. The right upper lobe is examined up to the third subsegmental level and no abnormalities were identified. There were mucoid secretions which were suctioned right away. The bronchoscope was advanced into the left mainstem bronchus. The left upper lobe, and lingula were examined up to the third subsegmental level and no abnormalities were identified. Mucosa of left upper lobe and lingula appeared normal with no endobronchial lesion. There were clear secretions which were suctioned right away. With the help of forceps took endobronchial biopsies were taken from the mass in the right bronchus intermedius near the opening of right lower lobe. There was some evidence of bleeding which was controlled with cold saline. BAL was taken from the same area. Bronchoscope was retracted and Endobronchial Ultrasound (EBUS) was introduced. Identified a large hypoechoic mass in station 11 L, station 4L, station 7, station 11 R. Using [id number] were taken from all the stations; there was some evidence of bleeding which is controlled with instillation of cold saline. After making sure there is no active bleeding, bronchoscope retracted and procedure terminated. Samples: 1. 7 endobronchial biopsies from mass occluding right lower lobe opening. 2. Bronchoalveolar lavage was performed after wedging the bronchoscope at the entrance of occluded right lower lobe. 30 mL of saline was instilled, fluid return was 12 mL. Bronchoalveolar lavage specimen was sent for cell count and differential, gram stain and culture, cytology B. EBUS guided Fine-needle aspiration biopsies were taken from station station 11 L, station 4L, station 7 and station 11 R. 1. Total of 3 passes were made using needle aspiration from station 11 L; all the material was placed in formalin and sent for histopathology 2. Total of 4 passes were made using needle aspiration from station 4L; all the material was placed in formalin and sent for histopathology; 3. Total of 6 passes were made using needle aspiration from station 7; all the material was placed in formalin and sent for histopathology 4. Total of 3 passes were made using needle aspiration from station 11 R; all the material was placed in formalin and sent for histopathology Some of the material from this 'mediastinal nodes' was placed in RPMI to rule out lymphoma Complications: None.The patient was extubated and brought to the PACU in stable condition. Disposition: Patient can be discharged home in stable condition. Pt and his are aware that I am going to call them to update final biopsy results once available. Related Problem List Diagnoses (1) Hilar mass:
[2023-10-22 08:12] LABS: Lymphoma Profile (BBPL) See Report
[2023-10-29 07:17] LABS: PD-L1 (Clone 22C3) by IHC BBPL See Report
== END 2023-10-20 14:24 | disposition home or self-care (01) ==
PROVIDERS: Family Provider Internal Medicine Medical Oncology; PCP Family Medicine; Visit Provider Internal Medicine Pulmonary Disease
PROC: BB4BZZZ Ultrasonography of Pleura (ICD-10-PCS; principal; 2023-10-20 11:40)
DX: C34.31 Malignant neoplasm of lower lobe, right bronchus or lung (principal); Z87.891 Personal history of nicotine dependence; Z85.89 Personal history of malignant neoplasm of other organs and systems; J44.9 Chronic obstructive pulmonary disease, unspecified; K21.9 Gastro-esophageal reflux disease without esophagitis; E78.5 Hyperlipidemia, unspecified; E66.01 Morbid (severe) obesity due to excess calories; Z68.1 Body mass index [BMI] 19.9 or less, adult; Z85.6 Personal history of leukemia; Z86.19 Personal history of other infectious and parasitic diseases
CPT/HCPCS: 31624; 31625; 31645; 31653; 71045; 80503; 87070; 87205; 88112; 88184; 88185; 88305; 88341; 88342; 89050; J1100; J2405; J2704; J2710; J3010; J3490; J7030

== ENCOUNTER 2023-10-27 11:48 | Outpatient (CLI) | payer MEDICAID, SELFPAY ==
--- NOTE | 2023-10-27 12:30 | PETR_ITS ---
PROCEDURE INFORMATION: Exam: PET/CT Skull Base to Mid-thigh Exam date and time: 10/27/2023 1:11 PM Age: 63 years old Clinical indication: Abnormal findings; Interval development of right hilar mass compatible with neoplasm. Recommend further evaluation. With bronchoscopy. Recommend pulmonary consultation. Prior surgery; Surgery date: 6+ months; Surgery type: RT throat; Patient HX: HX of lymphoma, throat cancer; Additional info: [place] LABS AND CLINICAL REPORTS: Glucose: 104 mg/dl Treatment strategy for malignancy (PET staging): Restaging (PS) TECHNIQUE: Imaging protocol: Following at least four-hour fasting and following the injection of radiopharmaceutical, low dose CT images were obtained. Then, PET images were obtained. Attenuation corrected images were constructed using the CT scan. Fused images of PET and CT were reviewed. The standardized uptake values (SUV) reported below are maximum values within a region of interest, expressed in gm/ml. Exam includes orbital meatal line to mid-thigh. Radiopharmaceutical: 13.9 mCi F-18 FDG (Fluorodeoxyglucose), IV. Time of imaging post radiopharmaceutical administration: 1 hour Injection site: Left antecubital COMPARISON: CT chest, abdomen and pelvis 10/02/2023, PT PET Scan 10/08/2019 8:13 AM FINDINGS: Brain: Visualized brain has normal physiologic uptake. Oral cavity: There is physiologic appearing uptake in the tongue without evidence of a correlating lesion on the CT images. Pharynx: No abnormal uptake. Larynx: No abnormal uptake. Lungs, pleura and trachea: Abnormal uptake in the right hilar region within a soft tissue density mass encasing portions of the right middle lobe and right lower lobe bronchi is noted measuring approximately 3.6 cm in diameter on series 3, image 101, SUV max 15.3. This mass appears similar compared with 10/02/2023 and is new since the prior PET-CT. Bilateral centrilobular and paraseptal emphysematous changes are noted. Heart: Normal physiologic uptake. Mediastinal space: No abnormal uptake. Liver: No abnormal uptake. Gallbladder and bile ducts: No abnormal uptake. Pancreas: No abnormal uptake. Spleen: No abnormal uptake. Adrenal glands: No abnormal uptake. Kidneys and ureters: Normal physiologic uptake. Stomach and bowel: There is physiologic appearing uptake in the stomach and bowel. Vasculature: No abnormal uptake. Diffuse atherosclerotic changes are present. Lymph nodes: Clustered radiotracer avid subcarinal lymph nodes are noted measuring up to approximately 2.4 x 2.2 cm on series 3, image 95. These lymph nodes demonstrate new abnormal uptake, SUV max 11.9. Bones/joints: Several (at least 13) primarily lytic scattered radiotracer avid osseous lesions are noted which appear new since the prior PET-CT. Examples: Anterior ring of C1 measuring approximately 2 cm in diameter on series 3, image 21, SUV max 17.0; right T1 transverse process without a well-defined lesion on the CT images, SUV max 6.0; posterior right 4th rib measuring 1 cm on image 68, SUV max 9.1; anterior right scapular body measuring approximately 9 mm on image 85, SUV max 8.3; inferior left scapula measuring 1.5 x 0.6 cm on image 98, SUV max 11.7. Examples of radiotracer avid lesions in the spine: Anterior inferior L4 vertebral body where there is a corresponding probable new mildly displaced pathologic fracture of the inferior endplate associated with a 1.5 cm in diameter region of lucency on series 3, image 183, SUV max 10.6 and in the T10 vertebral body where there is a 2.2 cm in diameter region of lucency, SUV max 15.4; bilateral sacrum without well-defined lesions on the CT images, for example on the left on series 3, image 200, SUV max 22.5. A lucent lesion in the left acetabulum extending into the superior pubic ramus with a soft tissue density component measuring approximately 3.6 x 2.5 cm on series 3, image 239 is noted, SUV max 26.9. The bones appear demineralized. Degenerative changes in the spine are present. Soft tissues: No abnormal uptake in the visualized head, neck, chest, abdomen, pelvis, and extremities. Postoperative changes are noted in the right neck. METRICS: Mediastinal blood pool: SUV max 1.8 PET/PET skulltothigh SUBSEQ [id number] IMPRESSION: 1. Abnormal uptake within a right perihilar mass (SUV max 15.3) is noted consistent with malignancy, new since the prior PET-CT. 2. Radiotracer avid subcarinal lymph nodes are new since the prior PET-CT consistent with malignancy. 3. Interval development of numerous radiotracer avid osseous lesions compared with the prior PET-CT compatible with metastases. Probable interval development of a pathologic fracture of the inferior endplate of L4. 4. Additional nonurgent findings as detailed above.
== END 2023-10-27 11:49 | disposition home or self-care (01) ==
LOC: RAD 11:48
PROVIDERS: PCP Family Medicine; Visit Provider Internal Medicine Pulmonary Disease
DX: R91.8 Other nonspecific abnormal finding of lung field (principal)
CPT/HCPCS: 78815; A9552

== ENCOUNTER 2023-10-28 06:35 | Outpatient (CLI) | payer MEDICAID, SELFPAY ==
[2023-10-28 07:10] VITALS: PULSE 71; RESP 18; O2SAT 98
[2023-10-28] MEDS: albuterol 2.5 mg/3 mL Neb INHALATION (07:10)
[2023-10-28 07:15] VITALS: PULSE 75
== END 2023-10-28 06:36 | disposition home or self-care (01) ==
LOC: RT 06:36
PROVIDERS: Family Provider Internal Medicine Medical Oncology; PCP Family Medicine; Visit Provider Internal Medicine Pulmonary Disease
DX: R91.8 Other nonspecific abnormal finding of lung field (principal)
CPT/HCPCS: 94060; 94618; 94726; 94729; J7613

== ENCOUNTER 2023-11-02 10:16 | Oncology outpatient (recurring) (ONCR) | payer MEDICAID, SELFPAY ==
[2023-10-23 10:06] LABS: Basophils % 0.2 %; Eosinophils % 0.1 %; Lymphocytes # 3.2 10^3/uL (0.8-4.8); Lymphocytes % 29.6 %; Mean Corpuscular HGB Conc 31.7 g/dL (30-55); Mean Corpuscular Hemoglobin 27.4 pg (27-33); Mean Corpuscular Volume 86.5 fl (82-101); Monocytes # 0.4 10^3/uL (0.2-0.9); Monocytes % 3.7 %; Neutrophils # 7.13 10^3/uL (1.8-7.7); Neutrophils % 65.4 %; Nucleated Red Blood Cells % 0 %; Platelet Count 171 10^3/cmm (157-399); Red Blood Count 5.32 10^6/uL (3.85-5.65); Red Cell Distribution Width 13.8 % (12.1-15.1); White Blood Count 10.89 10^3/uL (3.29-11.43)
[2023-10-23 10:32] LABS: Alanine Aminotransferase 6 U/L (0-41); Albumin Level 4.2 g/dL (3.5-5.2); Alkaline Phosphatase 174 U/L (40-130); Aspartate Amino Transferase 11 U/L (0-40); Blood Urea Nitrogen 15 mg/dL (8-23); Calcium 9.9 mg/dL (8.5-10.5); Carbon Dioxide 28 mmol/L (22-29); Chloride 99 mmol/L (98-107); Globulin 3.1 g/dL (1.3-4.6); Glomerular Filtration Rate 61.1 mL/min (90-130); Glucose 153 mg/dL (65-115); Lactate Dehydrogenase 152 U/L (135-225); Osmolality Calculated 292 mOsm/kg (285-295); Sodium 139 mmol/L (136-145); Total Bilirubin 0.6 mg/dL (0.15-1.2); Total Protein 7.3 g/dL (6.6-8.7)
== END 2023-11-17 23:59 | disposition home or self-care (01) ==
PROVIDERS: Family Provider Internal Medicine Medical Oncology; PCP Family Medicine; Visit Provider Internal Medicine
DX: C91.10 Chronic lymphocytic leukemia of B-cell type not having achieved remission (principal); C79.51 Secondary malignant neoplasm of bone; C34.31 Malignant neoplasm of lower lobe, right bronchus or lung; C09.9 Malignant neoplasm of tonsil, unspecified; Z79.899 Other long term (current) drug therapy
CPT/HCPCS: 36415; 80053; 83615; 85025; 99214

== ENCOUNTER → 2023-11-06 08:03 | Outpatient (BNVA) | payer MEDICAID, SELFPAY | PROVIDERS: Family Provider Internal Medicine Medical Oncology; PCP Family Medicine; Visit Provider Internal Medicine Pulmonary Disease | DX: C34.31 Malignant neoplasm of lower lobe, right bronchus or lung (principal); J43.9 Emphysema, unspecified; C91.10 Chronic lymphocytic leukemia of B-cell type not having achieved remission; C09.9 Malignant neoplasm of tonsil, unspecified | CPT/HCPCS: 99214 ==

== ENCOUNTER → 2023-11-12 13:54 | Outpatient (BNVA) | payer MEDICAID, SELFPAY | PROVIDERS: Family Provider Internal Medicine Medical Oncology; PCP Family Medicine; Referring Provider Internal Medicine; Visit Provider Surgery | DX: C79.51 Secondary malignant neoplasm of bone (principal); C34.31 Malignant neoplasm of lower lobe, right bronchus or lung | CPT/HCPCS: 99204 ==

== ENCOUNTER 2023-11-17 09:08 | Day surgery (SDC) | payer MEDICAID, SELFPAY ==
--- NOTE | 2023-11-17 09:26 | SC_ITS ---
WS: [id number] C-arm FL for CVA [id number] REASON FOR EXAM: Mediport placement FINDINGS: Chemotherapy infusion port placed in the left anterolateral chest wall. Trans left subclavian catheter with the tip in the mid superior vena cava. No pneumothorax identified. SC/C-arm FL for CVA [id number] IMPRESSION: Left-sided chemotherapy infusion port and catheter placement in proper position without complication.
--- NOTE | 2023-11-17 09:26 | XRR_ITS ---
PROCEDURE INFORMATION: Exam: XR Chest Exam date and time: 11/17/2023 11:17 AM Age: 63 years old Clinical indication: Device placement; Other: Postop mediport placement; Prior surgery; Surgery date: 1-6 months; Surgery type: Throat TECHNIQUE: Imaging protocol: Radiologic exam of the chest. Views: 1 view. COMPARISON: 1. CR XR chest 1V portable [id number] 10/20/2023 12:[address] dated 10/27/2023 FINDINGS: Tubes, catheters and devices: Port-A-Cath overlying left chest wall with tip projecting over the expected region of the superior vena cava. Lungs: No focal lung consolidation. The lungs are hyperinflated and hyperlucent compatible with chronic obstructive pulmonary disease. Prominent right jada compatible with right perihilar mass seen on prior PET CT. Pleural spaces: No pleural effusion. No pneumothorax. Heart/Mediastinum: Unremarkable. No cardiomegaly. Bones/joints: No acute bony abnormality. XR/XR chest 1V portable [id number] IMPRESSION: 1. Prominent right jada compatible with right perihilar mass seen on prior PET CT. 2. No focal lung consolidation.
--- NOTE | 2023-11-17 09:33 | ANES.PREANE2 ---
Pre-Anesthetic Assessment Height/Weight: Height 1.88 m Operation Date: 11/17/23 11:05 Proposed Procedures p Portacath Placement 50634, C79.51, C34.31(Not Applicable) - Austin Gaston, Social Alcohol and Tobacco Exam alert, oriented x 3 and regular rate & rhythm Diminished BS Airway Submandibular: within normal limits Cervical ROM: within normal limits Mallampati: Class I Pulmonary Chronic Obstructive Pulmonary Disease Squamos cell CA with wide mets Metabolic Thyroid Disease (Hypothyroid ) Musc/skel Lower Back Pain, Osteoarthritis/DJD and Weakness Anesthetic Plan ASA status: 4 Anesthesia: MAC Medications/Allergies Home Medications Medication Instructions Recorded Confirmed Last Taken Type hydroxyzine HCl 10 mg tablet 10 mg PO TID PRN Anxiety 04/26/20 11/16/23 11/16/23 History pravastatin 40 mg tablet 40 mg PO DAILY 04/26/20 11/16/23 11/16/23 History sennosides 8.6 mg tablet (Natural 8.6 mg PO TID 04/26/20 11/16/23 11/16/23 History Senna Laxative) morphine 15 mg immediate release 15 mg PO Q6H PRN pain 30 days #120 10/05/23 11/16/23 11/16/23 Rx tablet tabs seated wheeled walker #1 ea 10/06/23 11/12/23 Unknown Rx budesonide 160 mcg-glycopyr 9 2 inh inhalation BID 10/09/23 11/16/23 11/16/23 History mcg-formot 4.8 mcg/actuation HFA inhaler (Breztri Aerosphere) famotidine 40 mg tablet 40 mg PO DAILY 10/15/23 11/16/23 11/16/23 History gabapentin 300 mg capsule 300 mg PO TID 10/15/23 11/16/23 11/16/23 History ibrutinib 280 mg tablet (Imbruvica) 280 mg PO DAILY 10/15/23 11/16/23 11/16/23 History ondansetron 8 mg disintegrating 8 mg PO DAILY 10/15/23 11/16/23 11/16/23 History tablet morphine 100 mg tablet,extended 100 mg PO Q12H 30 days #60 tabs 10/23/23 11/16/23 11/16/23 Rx release wheelchair #1 ea 10/23/23 11/12/23 Unknown Rx levothyroxine 88 mcg capsule 88 mcg PO DAILY #90 caps 10/26/23 11/16/23 11/16/23 Rx metoclopramide HCl 10 mg tablet 10 mg PO TIDWM 11/16/23 11/16/23 11/16/23 History Allergies Allergy/AdvReac Type Severity Reaction Status Date / Time adhesive tape Allergy DAVIDY-Isabele Verified 11/16/23 14:01 r [facility] Anesthesia Medical History Metastasis to bone Compression fracture Non-small cell lung cancer Degenerative joint disease of spine History of hepatitis C Completed treatment in 2014 Anxiety Depression Chronic insomnia Chronic obstructive pulmonary disease 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 - T1o, N2boh, M0 Chronic lymphocytic leukemia of B-cell type not having achieved remission Surgical History Status post surgical removal of malignant neoplasm of skin (2017) Excision of basal cell carcinoma from the left parietal scalp History of lymph node biopsy (07/15/12) Left axillary lymph node biopsy History of cervical spinal surgery (2006) Surgery for neck fracture History of back surgery (2016) History of laryngoscopy Hx of tonsillectomy (07/06/12) Right tonsillectomy, partial pharyngectomy, right base of tongue resection, and right modified radical neck dissection Family History Mother Hypertension Father Diabetes Cancer lymphoma Grandfather Cancer Paternal-unknown Other CAD (coronary artery disease) Hyperlipidemia Denies family history of Clotting disorder Dementia Psychiatric illness Chronic kidney disease (CKD) Suicide Anesthesia complication Bleeding disorder Lung disease Stroke Social History Smoking and tobacco/nicotine status: former use of tobacco/nicotine Quit status (tobacco/nicotine): has quit using Year quit tobacco: 2013 Former quit date comment: 2 ppd X 41 years Alcohol intake: never Substance/Drug Use: current Substance/Drug use frequency: daily Other substance/drug use details: Medical Lives independently: Yes Marital status: Number of children: 3 Current occupational status: disabled Special nati needs: No Agree to transfusion: Yes Data Anesthesia Cardiac Studies: No Data to Display
[2023-11-17] MEDS: sodium chloride 0.9% 1,000 ML 30 ML IV (09:45)
--- NOTE | 2023-11-17 09:51 | W.PM.OPSUD ---
Surgery/Procedure H&P Update DATE OF PROCEDURE: November 17, 2023 DATE H&P PERFORMED: 11/12/23 H&P UPDATE INFORMATION: I have reviewed H&P completed within last 30 days, I have examined patient prior to procedure and No changes to prior documentation PLANNED PROCEDURE: Operation Date: 11/17/23 11:05 Proposed Procedures p Portacath Placement 99087, C79.51, C34.31(Not Applicable) - Austin Gaston DO
[2023-11-17 10:21] VITALS: BMI 18.4
[2023-11-17] MEDS: ceFAZolin 2,000 MG in sodium chloride 0.9% (plus) 50 ML 100 MG IV (10:27)
[2023-11-17] MEDS: lidocaine-epi 2% PF 1:200,000 20 mL SDV XX (10:56)
[2023-11-17] MEDS: heparin, porcine 1,000 unit/mL INJ 10 mL 10000 UNIT IRRIGATION (10:57)
--- NOTE | 2023-11-17 11:10 | PM.OP ---
Operative Report Date of procedure: November 17, 2023 Pre-op diagnosis: Lung cancer Post-op diagnosis: same Procedure done: Mediport placement Intraoperative interpretation of fluoroscopy Implants: PowerPort Specimens removed/disposition: None Surgeon: Austin Gaston DO Anesthesia: MAC and Local Estimated blood loss (mL): 5 Complications: None apparent Brief History: This very pleasant 63-year-old gentleman who was recently diagnosed with lung cancer. Oncology requested Mediport placement for chemotherapy access. The risk and benefits were explained and documented. Procedure: They put another order I will do right now things the patient was taken to the operating room and placed supine on the operating room table. All bony prominences were padded. She was given IV sedation and monitored throughout the case by the anesthesia personnel. SCDs were placed and turned on. The arms were tucked to the side. Patient received Ancef 2 g preoperatively IV. The bilateral chest wall was prepped and draped in usual sterile fashion using chlorhexidine base prep. Sterile drapes were applied. We did procedure pause prior to beginning. An 18 gauge needle was placed in the left subclavian vein. Dark, nonpulsatile blood was aspirated. A guidewire was placed through the needle centrally toward the atrial/vena caval junction. Fluoroscopy visualized good placement. The needle was removed and the guidewire was clipped to the drape with a hemostat. Further local anesthetic was infiltrated in the soft tissues of the left chest wall and a #15 blade was used to make a horizontal skin incision. A subcutaneous Mediport pocket was created using Bovie cautery, dissecting down through the skin and subcutaneous tissues. Meticulous hemostasis was achieved. The Mediport was sutured in position using 3-0 vicryl suture x2 stitches. A #15 blade was used to make a small skin tonny around the guidewire insertion area. The Mediport tubing was tunneled through the subcutaneous tissues up to the needle insertion location. A dilator with a peel-away sheath was placed over the guidewire and placed centrally. After measuring the Mediport tubing was cut to length so that the tip would end at the atrial/vena caval junction. The inner cannula and the guidewire were removed, leaving the dilator sheath in place. The Mediport was flushed. The tip of the catheter was inserted through the peel-away sheath and the peel-away sheath removed in the standard fashion. The Mediport was accessed with a straight Nunez needle and dark, nonpulsatile blood was aspirated and flushed using heparinized saline to hep-lock the Mediport. Final fluoroscopy visualization showed no kink in the catheter and the tip of the Mediport tubing near the atrial/vena caval junction. There was no obvious pneumothorax. Both skin incisions were thoroughly irrigated and suctioned dry. Meticulous hemostasis noted. The dermis was approximated with 3-0 Vicryl in an interrupted fashion. Skin was closed with Dermabond. Patient was awakened from anesthesia and transferred via her cart to the recovery room in stable condition. All needle, sponge, and instrument counts were correct per the operating personnel x2 counts.
[2023-11-17 11:15] VITALS: BP 160/81; PULSE 76; RESP 12; TEMP 36.8; O2SAT 97
[2023-11-17 11:20] VITALS: BP 167/97; PULSE 72; RESP 24; O2SAT 98
[2023-11-17 11:25] VITALS: BP 156/84; PULSE 71; RESP 13; O2SAT 97
[2023-11-17 11:30] VITALS: BP 149/85; PULSE 71; RESP 17; TEMP 37.1; O2SAT 97
[2023-11-17 12:00] VITALS: BP 172/80; PULSE 63; RESP 18; TEMP 37.1; O2SAT 93
--- NOTE | 2023-11-17 12:58 | ANE.PACU2 ---
Inpatient post-anesthesia follow up: Vital signs: Temperature 98.7 F Pulse Rate 63 Respiratory Rate 18 Blood Pressure 172/80 Pulse Oximetry 93 Oxygen Delivery Me thod Nasal Cannula Oxygen Flow Rate Fraction of Inspir ed Oxygen Hydration adequate: Yes Nausea and vomiting: No Pain level: 2 Mental status: Baseline
== END 2023-11-17 12:18 | disposition home or self-care (01) ==
PROVIDERS: PCP Family Medicine; Visit Provider Surgery
PROC: (CPT 36561; principal; 2023-11-17 10:55)
DX: C34.31 Malignant neoplasm of lower lobe, right bronchus or lung (principal); Z85.89 Personal history of malignant neoplasm of other organs and systems; Z86.19 Personal history of other infectious and parasitic diseases; J44.9 Chronic obstructive pulmonary disease, unspecified; Z87.891 Personal history of nicotine dependence; E03.9 Hypothyroidism, unspecified
CPT/HCPCS: 36561; 71045; 77001; C1788; J0690; J1644; J2704; J3010; J7030

== ENCOUNTER 2023-11-18 18:13 | Inpatient (IN) | payer MEDICAID, SELFPAY ==
[2023-11-18] VITALS (13 sets, daily range): BP systolic 82–109; BP diastolic 48–62; PULSE 53–67; RESP 16–23; TEMP 36.8; O2SAT 87–100; BMI 18.4
--- NOTE | 2023-11-18 18:19 | ECG_ITS ---
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 Measurements Intervals [place]cock Rate: 68 P: 61 NJ: 141 QRS: -86 QRSD: 131 T: 45 QT: 395 QTc: 422 Interpretive Statements SINUS RHYTHM LEFT AXIS DEVIATION [QRS AXIS < -30] RIGHT BUNDLE BRANCH BLOCK [120+ ms QRS DURATION, UPRIGHT V1, 40+ ms S IN I/aVL/V4/V5/V6] Compared to ECG 05/14/2018 13:43:50 Left-axis deviation now present Sinus bradycardia no longer present Right-axis deviation no longer present Electronically Signed On 11-19-2023 22:55:[address] M.D. [id number] f
--- NOTE | 2023-11-18 18:24 | XRR_ITS ---
PROCEDURE INFORMATION: Exam: XR Chest Exam date and time: 11/18/2023 6:46 PM Age: 63 years old Clinical indication: Chest wall pain; Additional info: Cp TECHNIQUE: Imaging protocol: Radiologic exam of the chest. Views: 1 view. COMPARISON: CR XR chest 1V portable [id number] 11/17/2023 11:17 AM FINDINGS: Tubes, catheters and devices: Left-sided infusion port is again noted in stable positioning. Lungs: Hyperinflated lungs and mild pulmonary vascular congestion again noted. Mild enlargement of the right hilum and mild increased densities in the right infrahilar lung corresponding to known underlying mass with probable mild infrahilar atelectasis again demonstrated. Bandlike basilar atelectasis. Pleural spaces: Suspected trace left apical pneumothorax. Additional lucency/pneumothorax embolus costophrenic sulcus up to 1.6 cm in thickness. Heart/Mediastinum: Borderline cardiac silhouette size. Bones/joints: Unremarkable. XR/XR chest 1V portable [id number] IMPRESSION: 1. Small left pneumothorax suspected in the apex and left costophrenic sulcus. 2. No other significant interval radiographic change. Known right hilar enlargement due to underlying neoplasm and mild infrahilar streaky density/atelectasis.
--- NOTE | 2023-11-18 18:30 | CTR_ITS ---
PROCEDURE INFORMATION: Exam: CTA Chest With Contrast Exam date and time: 11/18/2023 8:48 PM Age: 63 years old Clinical indication: Angina; Additional info: SOB TECHNIQUE: Imaging protocol: Computed tomographic angiography of the chest with contrast. Exam focused on the arteries. 3D rendering (Not supervised by radiologist): MIP and/or 3D reconstructed images were created by the technologist. Radiation optimization: All CT scans at this facility use at least one of these dose optimization techniques: automated exposure control; mA and/or kV adjustment per patient size (includes targeted exams where dose is matched to clinical indication); or iterative reconstruction. Contrast material: OMNI 350; Contrast volume: 100 ml; Contrast route: INTRAVENOUS (IV); COMPARISON: [facility] SUB[facility] [id number] 10/27/2023 1:11 PM RADIATION DOSE METRICS: Total DLP (mGy-cm): 231 FINDINGS: Tubes, catheters and devices: Left-sided chest port catheter terminates over the SVC. Pulmonary arteries: The known right hilar mass applies mass effect upon a right subsegmental pulmonary artery, resulting in partial obstruction. No evidence of pulmonary artery thromboembolism. Aorta: Mild scattered calcific disease of the aorta and its major branches. Veins: The known right hilar mass applies significant mass effect upon the inferior left pulmonary vein. Lungs: Emphysematous changes and scarring about the lung apices. Flev-ee-grgyvmce bibasilar consolidative atelectasis. Pleural spaces: Small to moderate left pneumothorax. No significant pleural effusion. Heart: Heart is normal in size. No pericardial effusion. Mediastinal space: Unchanged right hilar mass measuring up to 3.7 cm. This mass/pardeep conglomerate extends into the subcarinal region, unchanged. Lymph nodes: Multiple prominent sub threshold mediastinal lymph nodes, unchanged. Bones/joints: Unchanged appearance of multiple osseous metastatic lesions, including in the bilateral scapulae, multiple right ribs, and multiple vertebral bodies. Soft tissues: Visualized superficial soft tissues are within normal limits. CT/CT angio chest PE protcl [id number] IMPRESSION: 1. Small to moderate sized left pneumothorax. 2. Unchanged right hilar mass measuring up to 3.7 cm. This mass/pardeep conglomerate extends into the subcarinal region, unchanged. 3. Unchanged appearance of multiple osseous metastatic lesions, including in the bilateral scapulae, multiple right ribs, and multiple vertebral bodies. 4. Rpgq-yr-wikwisyn bibasilar consolidative atelectasis. Basilar pulmonary metastases could potentially be obscured by the atelectasis. Overlying infectious etiology is not fully excluded. 5. The known right hilar mass applies mass effect upon a right subsegmental pulmonary artery, resulting in partial obstruction. The known right hilar mass applies significant mass effect upon the inferior left pulmonary vein. 6. No evidence of pulmonary artery thromboembolism.
--- NOTE | 2023-11-18 18:30 | CTR_ITS ---
PROCEDURE INFORMATION: Exam: CT Head Without Contrast Exam date and time: 11/18/2023 8:42 PM Age: 63 years old Clinical indication: Other: Weak; Additional info: Weakness TECHNIQUE: Imaging protocol: Computed tomography of the head without contrast. Radiation optimization: All CT scans at this facility use at least one of these dose optimization techniques: automated exposure control; mA and/or kV adjustment per patient size (includes targeted exams where dose is matched to clinical indication); or iterative reconstruction. COMPARISON: [facility] SUBSEQ [id number] 10/27/2023 1:11 PM RADIATION DOSE METRICS: Total DLP (mGy-cm): 1149.53 FINDINGS: Brain: Moderate cerebral parenchymal atrophy and chronic microvascular cerebral parenchymal change. No hemorrhage. Unremarkable white matter. No mass effect. Cerebral ventricles: No ventriculomegaly. Paranasal sinuses: Visualized sinuses are unremarkable. No fluid levels. Mastoid air cells: Visualized mastoid air cells are well aerated. Bones: Unremarkable. No acute fracture. Soft tissues: Unremarkable. CT/CT head wo con* [id number] IMPRESSION: No acute intracranial abnormality. Moderate cerebral parenchymal atrophy and chronic microvascular parenchymal change. Further evaluation with MR as clinically warranted.
--- NOTE | 2023-11-18 18:32 | ED_ITS ---
HPI - Chest Pain 2 General: Chief Complaint: Chest Pain Stated Complaint: CP Time Seen by Provider: 11/18/23 18:22 Source: patient and EMS Mode of arrival: EMS Limitations: no limitations History of Present Illness: 63-year-old male history of stage IV tatum g cancer with mets states that today he had worsening chest pain he had some chronic pain from his cancer. He states he also has been extremely lethargic states he is not able to get up or ambulate he states he feels very short of breath as well he is hypotensive here denies any vomiting denies any fever denies any worsening proving factors Associated symptoms: Reports dyspnea; Deny abdominal pain, fever(s), nausea or vomiting Review of Systems 2 Const: Reports: malaise; Denies: fever(s), chills, body aches or change in appetite ENMT: Denies: throat pain or dental pain Card: Reports: chest pain Resp: Reports: dyspnea GI: Denies: abdominal pain, nausea, vomiting or diarrhea : Denies: dysuria Musc: Denies: neck pain or back pain Skin/Breast: Denies: rash Neuro: Denies: headache(s) PFSH ED 2 PFSH: Medical History Metastasis to bone Compression fracture Non-small cell lung cancer Degenerative joint disease of spine History of hepatitis C Completed treatment in 2014 Anxiety Depression Chronic insomnia Chronic obstructive pulmonary disease 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 - T1o, N2boh, M0 Chronic lymphocytic leukemia of B-cell type not having achieved remission Surgical History Status post surgical removal of malignant neoplasm of skin (2018) Excision of basal cell carcinoma from the left parietal scalp History of lymph node biopsy (07/15/12) Left axillary lymph node biopsy History of cervical spinal surgery (2006) Surgery for neck fracture History of back surgery (2016) History of laryngoscopy Hx of tonsillectomy (07/06/12) Right tonsillectomy, partial pharyngectomy, right base of tongue resection, and right modified radical neck dissection Family History Mother Hypertension Father Diabetes Cancer lymphoma Grandfather Cancer Paternal-unknown Other CAD (coronary artery disease) Hyperlipidemia Denies family history of Clotting disorder Dementia Psychiatric illness Chronic kidney disease (CKD) Suicide Anesthesia complication Bleeding disorder Lung disease Stroke Social History Smoking and tobacco/nicotine status: former use of tobacco/nicotine Quit status (tobacco/nicotine): has quit using Year quit tobacco: 2013 Former quit date comment: 2 ppd X 41 years Alcohol intake: never Substance/Drug Use: current Substance/Drug use frequency: daily Other substance/drug use details: Medical Lives independently: Yes Marital status: Number of children: 3 Current occupational status: disabled Special nati needs: No Agree to transfusion: Yes Physical Exam 2 Const: COMMON NORMALS: patient oriented x3 HENMT: COMMON NORMALS: normocephalic and atraumatic HEAD & SCALP: n ormocephalic and atraumatic Eye: COMMON NORMALS: Equal, round and reactive pupils present and EOMs intact bilaterally PUPIL: Yes Equal, round and reactive pupils present Neck/C-Spine: COMMON NORMALS: full ROM and supple Chest: COMMONS NORMALS: normal inspection of the chest and normal palpation of entire chest wall Resp: COMMON NORMALS: normal respiratory effort, No retractions, No use of accessory muscles and clear to auscultation bilaterally AUSCULTATION: clear to auscultation bilaterally Cardio: COMMON NORMALS: regular rate, regular rhythm and No murmurs present (Cardio) RATE: regular rate RHYTHM: regular rhythm GI: COMMON NORMALS: Normal to inspection, nondistended, normoactive bowel sounds present, Soft to palpation, non-tender and no masses PALPATION: Yes Soft to palpation Extremity: COMMON NORMALS: normal to inspection and full ROM Neuro: COMMON NORMALS: patient oriented x3, moves all extremities and no focal motor deficits Psych: COMMON NORMALS: mental status grossly normal, Normal thought process present and cooperative THOUGHT PROCESS: Normal thought process present Skin: COMMON NORMALS: no rashes or lesions noted and no wounds GENERAL SKIN EXAM: no rashes or lesions noted Course 2 Vital Signs: Vital signs: Vital Signs Temperature 98.2 F 11/18/23 18:17 Pulse Rate 58 L 11/18/23 21:30 Respiratory Rate 21 H 11/18/23 21:30 Blood Pressure 101/62 11/18/23 21:30 Pulse Oximetry 94 11/18/23 21:30 Oxygen Delivery Me thod Nasal Cannula 11/18/23 19:33 MDM - Chest Pain Medical Decision Making Patient presents for chest pain along with shortness of breath he is found to have a small 15 to 20% pneumothorax did place him on a nonrebreather will admit at this time and observe the size of pneumothorax if it is resolving spoke to CT surgeon along with hospitalist will admit Medical Records I reviewed the patient's medical records. Lab Data I reviewed the patient's lab results. 11/18/23 19:31 11/18/23 19:31 Radiology Impressions Chest X-Ray 11/18/23 18:24 IMPRESSION: 1. Small left pneumothorax suspected in the apex and left costophrenic sulcus. 2. No other significant interval radiographic change. Known right hilar enlargement due to underlying neoplasm and mild infrahilar streaky density/atelectasis. ADDENDUM: 11/18/232056 COMMENT: THIS REPORT CONTAINS FINDINGS THAT MAY BE CRITICAL TO PATIENT CARE. The exam findings were verbally communicated by me to MARY Maxwell via telephone conference at 8:54 PM CDT on 11/18/2023. The findings were acknowledged and understood. Chest CTA 11/18/23 18:30 IMPRESSION: 1. Small to moderate sized left pneumothorax. 2. Unchanged right hilar mass measuring up to 3.7 cm. This mass/pardeep conglomerate extends into the subcarinal region, unchanged. 3. Unchanged appearance of multiple osseous metastatic lesions, including in the bilateral scapulae, multiple right ribs, and multiple vertebral bodies. 4. Pedk-sb-nxkcueks bibasilar consolidative atelectasis. Basilar pulmonary metastases could potentially be obscured by the atelectasis. Overlying infectious etiology is not fully excluded. 5. The known right hilar mass applies mass effect upon a right subsegmental pulmonary artery, resulting in partial obstruction. The known right hilar mass applies significant mass effect upon the inferior left pulmonary vein. 6. No evidence of pulmonary artery thromboembolism. ADDENDUM: 11/18/232206 ADDENDUM: THIS REPORT CONTAINS FINDINGS THAT MAY BE CRITICAL TO PATIENT CARE. The findings were verbally communicated via telephone conference with Dr. Brock at 10:05 PM CDT on 11/18/2023. The findings were acknowledged and understood. Head CT 11/18/23 18:30 IMPRESSION: No acute intracranial abnormality. Moderate cerebral parenchymal atrophy and chronic microvascular parenchymal change. Further evaluation with MR as clinically warranted. Laboratory Results WBC 15.09 10^3/uL (3.29-11.43) H 11/18/23 19:31 RBC 3.53 10^6/uL (3.85-5.65) L 11/18/23 19:31 Hgb 9.50 g/dL (11.27-16.99) L 11/18/23 19: Hct 31.3 % (37-53) L 11/18/23 19: MCV 88.7 fl (82-101) 11/18/23 19: MCH 26.9 pg (27-33) L 11/18/23 19: MCHC 30.4 g/dL (30-55) 11/18/23 19: RDW 14.2 % (12.1-15.1) 11/18/23 19: Plt Count 151 10^3/cmm (157-399) L 11/18/23 19: MPV 11.2 fL (7.4-10.4) H 11/18/23 19: Neut % (Auto) 51.6 % 11/18/23 19: Lymph % (Auto) 44.0 % 11/18/23 19: Major % (Auto) 3.4 % 11/18/23 19: Eos % (Auto) 0.0 % 11/18/23 19: Baso % (Auto) 0.1 % 11/18/23 19: Neut # (Auto) 7.78 10^3/uL (1.8-7.7) H 11/18/23 19: Lymph # (Auto) 6.6 10^3/uL (0.8-4.8) H 11/18/23 19: Major # (Auto) 0.5 10^3/uL (0.2-0.9) 11/18/23 19: Eos # (Auto) 0.0 10^3/uL (0.0-0.8) 11/18/23 19: Baso # (Auto) 0.0 10^3/uL (0.0-0.1) 11/18/23 19:31 Nucleated RBC % (auto) 0 % 11/18/23 19:31 Nucleated RBCs # 0.0 /100WBC 11/18/23 19:31 PT 15.20 SECONDS (12.1-14.9) H 11/18/23 19:31 INR 1.16 (0.8-1.2) 11/18/23 19:31 Sodium 138 mmol/L (136-145) 11/18/23 19:31 Potassium 4.2 mmol/L (3.5-5.1) 11/18/23 19:31 Chloride 106 mmol/L (98-107) 11/18/23 19:31 Carbon Dioxide 24 mmol/L (22-29) 11/18/23 19:31 Anion Gap 12.2 (5-19) 11/18/23 19:31 BUN 17 mg/dL (8-23) 11/18/23 19:31 Creatinine 1.3 mg/dL (0.7-1.2) H 11/18/23 19:31 GFR Calculation 55.8 mL/min (90-130) L 11/18/23 19:31 Glucose 128 mg/dL (65-115) H 11/18/23 19:31 Calculated Osmolality 289 mOsm/kg (285-295) 11/18/23 19:31 Lactic Acid 1.2 mmol/L (0.5-2.2) 11/18/23 19:31 Calcium 7.5 mg/dL (8.5-10.5) L 11/18/23 19:31 Total Bilirubin 0.2 mg/dL (0.15-1.2) 11/18/23 19:31 AST 10 U/L (0-40) 11/18/23 19:31 ALT < 5 U/L (0-41) 11/18/23 19:31 Alkaline Phosphatase 123 U/L (40-130) 11/18/23 19:31 Troponin T Baseline 76 ng/L (0-15) H 11/18/23 19:31 Troponin T 120 Minute 85.85 ng/L (0-15) H 11/18/23 21:17 Delta Troponin T 9.85 ABS# (0-10) 11/18/23 21:17 NT-Pro-B Natriuret Pep 848 pg/mL (0-125) H 11/18/23 19:31 Total Protein 4.7 g/dL (6.6-8.7) L 11/18/23 19: Albumin 2.9 g/dL (3.5-5.2) L 11/18/23 19: Globulin 1.8 g/dL (1.3-4.6) 11/18/23 19:31 Urine Color Yellow (Yellow) 11/18/23 21:00 Urine Appearance Clear (CLEAR) 11/18/23 21:00 Urine pH 6 (5-7) 11/18/23 21:00 Ur Specific [place] 1.020 (1.005-1.030) 11/18/23 21:00 Urine Protein Neg (Negative) 11/18/23 21:00 Urine Glucose (UA) Norm (Normal) 11/18/23 21:00 Urine Ketones Negative (Negative) 11/18/23 21:00 Urine Blood 2+ (Negative) H 11/18/23 21:00 Urine Nitrate Negative (Negative) 11/18/23 21:00 Urine Bilirubin Neg (Negative) 11/18/23 21:00 Urine Urobilinogen Neg mg/dL (Negative) 11/18/23 21:00 Ur Leukocyte Esterase Negative (Negative) 11/18/23 21:00 Urine RBC 0-4 /hpf (0-2) H 11/18/23 21:00 Urine WBC None /hpf (0-5) 11/18/23 21:00 Ur Squamous Epith Cells None /hpf (0-5) 11/18/23 21:00 Calcium Oxalate Crystal 5-10 /hpf H 11/18/23 21:00 Amorphous Sediment Not Reportable 11/18/23 21:00 Urine Bacteria Trace /hpf (NONE) 11/18/23 21:00 Urine Mucus 2+ /hpf 11/18/23 21:00 All radiology interpretation(s) finalized by discharge EKG Data EKG 1: I personally reviewed and interpreted this EKG as follows: EKG interpretation date: 11/18/23 EKG interpretation time: 18:19 Interpretation: nsr hr [address] or t wave abnormalities qrs 131 qtc 413 Discharge Plan Discharge Patient Disposition: Admitted As Inpatient Admit Provider: Roosevelt Caraballo Clinical Impression: Pneumothorax Condition: Stable Coding Level of Care Code ED [employer] [facility]
[2023-11-18] MEDS: sodium chloride 0.9% 1,000 ML 999 ML IV (18:38)
[2023-11-18 19:59] LABS: Basophils % 0.1 %; Hematocrit 31.3 % (37-53); Lymphocytes # 6.6 10^3/uL (0.8-4.8); Mean Corpuscular HGB Conc 30.4 g/dL (30-55); Mean Corpuscular Hemoglobin 26.9 pg (27-33); Mean Corpuscular Volume 88.7 fl (82-101); Mean Platelet Volume 11.2 fL (7.4-10.4); Monocytes # 0.5 10^3/uL (0.2-0.9); Monocytes % 3.4 %; Neutrophils # 7.78 10^3/uL (1.8-7.7); Neutrophils % 51.6 %; Nucleated Red Blood Cells % 0 %; Platelet Count 151 10^3/cmm (157-399); Red Blood Count 3.53 10^6/uL (3.85-5.65); Red Cell Distribution Width 14.2 % (12.1-15.1); White Blood Count 15.09 10^3/uL (3.29-11.43)
[2023-11-18 20:06] LABS: INR 1.16 (0.8-1.2)
[2023-11-18 20:13] LABS: Lactic Sepsis W/Reflex 1.2 mmol/L (0.5-2.2); Slide Review Slide Review Perform
[2023-11-18 20:15] LABS: Troponin(5th) Baseline 76 ng/L (0-15)
[2023-11-18 20:23] LABS: Alanine Aminotransferase < 5 U/L (0-41); Albumin Level 2.9 g/dL (3.5-5.2); Alkaline Phosphatase 123 U/L (40-130); Anion Gap 12.2 (5-19); Aspartate Amino Transferase 10 U/L (0-40); Blood Urea Nitrogen 17 mg/dL (8-23); Calcium 7.5 mg/dL (8.5-10.5); Carbon Dioxide 24 mmol/L (22-29); Chloride 106 mmol/L (98-107); Globulin 1.8 g/dL (1.3-4.6); Glomerular Filtration Rate 55.8 mL/min (90-130); Glucose 128 mg/dL (65-115); NT Pro B Type Natriuretic Pept 848 pg/mL (0-125); Osmolality Calculated 289 mOsm/kg (285-295); Potassium 4.2 mmol/L (3.5-5.1); Sodium 138 mmol/L (136-145); Total Bilirubin 0.2 mg/dL (0.15-1.2); Total Protein 4.7 g/dL (6.6-8.7)
[2023-11-18] MEDS: iohexol 350 mg/mL 500 mL Btl (per mL) IV (20:45)
[2023-11-18 21:23] LABS: Add Urine Microscopic? YES; Bilirubin Urine Neg (Negative); Blood Urine 2+ (Negative); Glucose Urine UA Norm (Normal); Ketones Urine Negative (Negative); Leukocyte Esterase Urine Negative (Negative); Nitrate Urine Negative (Negative); Protein Urine Neg (Negative); Urine Appearance Clear (CLEAR); Urine Color Yellow (Yellow); Urobilinogen Urine Neg (Negative); pH Urine 6 (5-7)
[2023-11-18 21:24] LABS: Add Urine Culture? No; Bacteria Urine TRACE /hpf; Mucus Urine 2+ /hpf; RBC Urine 0-4 /hpf (0-2)
[2023-11-18 21:47] LABS: Troponin 5 2HR 85.85 ng/L (0-15); Troponin 5 2HR Delta 9.85 ABS# (0-10)
--- NOTE | 2023-11-18 22:06 | P.HP_ITS ---
Documented by User: Didi Tony, [facility] STD 11/18/23 23:43 Providers/Chief Complaint 2 Admitting Physician: Roosevelt Caraballo MD Primary Care Provider: Braxton Diamond MD Chief Complaint: CP History of Present Illness Apolinar Nix is a 63 year old male with past medical history of hepatitis C treated in 2015, non-small cell lung cancer, degeneration joint disease of the spine, ,insomnia, depression , and anxiety. Patient presents to the emergency department with below listed complaints. Patient arrived to the Emergency Department today via EMS with chief complaint of severe left sided chest pain and shortness of breath. These symptoms began around 1600, EMS was then called and brought to the Emergency Department. Patient currently on 8 L oxygen mask stating 94%, denies wearing oxygen at home. noted to be sitting at bedside. He was recently seen outpatient on 11/17/23 for a Port-A-Cath placement and reports no complications during or after this procedure. Denies any new medication changes, fever, cough, recent falls. Denies chest pain currently. Chest CTA demonstrated a left pneumothorax. Patient to be admitted to cardiac stepdown unit for further monitoring and possible intervention of left pneumothorax. While in the emergency department patient received 1L NS bolus. CBC, CMP, PT, INR, UA, blood cultures were ordered and obtained. Chest x-ray, chest CTA, head CT, EKG were ordered and obtained as well. Review of Systems 2 General: Reports: 10 or more systems reviewed and unremarkable except in HPI and below Medications/Allergies Home Medications Medication Instructions Recorded Confirmed Last Taken Type hydroxyzine HCl 10 mg tablet 10 mg PO TID PRN Anxiety 04/26/20 11/16/23 11/16/23 History pravastatin 40 mg tablet 40 mg PO DAILY 04/26/20 11/18/23 11/16/23 History sennosides 8.6 mg tablet (Natural 8.6 mg PO TID 04/26/20 11/18/23 11/16/23 History Senna Laxative) morphine 15 mg immediate release 15 mg PO Q6H PRN pain 30 days #120 10/05/23 11/16/23 11/16/23 Rx tablet tabs seated wheeled walker #1 ea 10/06/23 11/18/23 Unknown Rx budesonide 160 mcg-glycopyr 9 2 inh inhalation BID 10/09/23 11/16/2311/15/24 History mcg-formot 4.8 mcg/actuation HFA inhaler (Breztri Aerosphere) famotidine 40 mg tablet 40 mg PO DAILY 10/15/23 11/16/23 11/16/23 History gabapentin 300 mg capsule 300 mg PO TID 10/15/23 11/16/23 11/17/23 History ibrutinib 280 mg tablet (Imbruvica) 280 mg PO DAILY 10/15/23 11/16/23 11/16/23 History ondansetron 8 mg disintegrating 8 mg PO DAILY 10/15/23 11/18/23 11/17/23 History tablet morphine 100 mg tablet,extended 100 mg PO Q12H 30 days #60 tabs 10/23/23 11/16/23 11/16/23 Rx release wheelchair #1 ea 10/23/23 11/18/23 Unknown Rx levothyroxine 88 mcg capsule 88 mcg PO DAILY #90 caps 10/26/23 11/16/23 11/17/23 Rx metoclopramide HCl 10 mg tablet 10 mg PO TIDWM 11/16/23 11/16/23 11/16/23 History docusate sodium 100 mg capsule 100 mg PO BID #10 caps 11/17/23 Unknown Rx (Colace) hydrocodone 7.5 mg-acetaminophen 1 tab PO Q6H PRN pain #14 tabs 11/17/23 Unknown Rx 325 mg tablet dexamethasone 4 mg tablet 20 mg (5 x 4 mg) PO DIRECTED 11/18/23 11/18/23 Unknown Rx #40 tabs lorazepam 1 mg tablet 0.5 - 1 mg (0.5 - 1 x 1 mg) PO Q6H 11/18/23 Unknown Rx PRN Severe Nausea #30 tabs prochlorperazine maleate 10 mg 10 mg PO Q4H PRN Mild Nausea #30 11/18/23 11/18/23 Unknown Rx tablet (Compazine) tabs Allergies Allergy/AdvReac Type Severity Reaction Status Date / Time adhesive tape Allergy ALGY-Bliste Verified 11/16/23 14:01 r PFSH Acute 2 PFSH: Medical History Metastasis to bone Compression fracture Non-small cell lung cancer Degenerative joint disease of spine History of hepatitis C Completed treatment in 2014 Anxiety Depression Chronic insomnia Chronic obstructive pulmonary disease 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 - T1o, N2boh, M0 Chronic lymphocytic leukemia of B-cell type not having achieved remission Surgical History Status post surgical removal of malignant neoplasm of skin (2017) Excision of basal cell carcinoma from the left parietal scalp History of lymph node biopsy (07/15/12) Left axillary lymph node biopsy History of cervical spinal surgery (2006) Surgery for neck fracture History of back surgery (2016) History of laryngoscopy Hx of tonsillectomy (07/06/12) Right tonsillectomy, partial pharyngectomy, right base of tongue resection, and right modified radical neck dissection Family History Mother Hypertension Father Diabetes Cancer lymphoma Grandfather Cancer Paternal-unknown Other CAD (coronary artery disease) Hyperlipidemia Denies family history of Clotting disorder Dementia Psychiatric illness Chronic kidney disease (CKD) Suicide Anesthesia complication Bleeding disorder Lung disease Stroke Social History Smoking and tobacco/nicotine status: former use of tobacco/nicotine Quit status (tobacco/nicotine): has quit using Year quit tobacco: 2013 Former quit date comment: 2 ppd X 41 years Alcohol intake: never Substance/Drug Use: current Substance/Drug use frequency: daily Other substance/drug use details: Medical Lives independently: Yes Marital status: Number of children: 3 Current occupational status: disabled Special nati needs: No Agree to transfusion: Yes Vitals/I&O/Wt Last Vital Signs Temp 98.2 F 11/18/23 18:17 Pulse 59 L 11/18/23 20:30 Resp 16 11/18/23 20:30 BP 92/58 11/18/23 20:03 Pulse Ox 95 11/18/23 20:30 O2 Del Method Nasal Cannula 11/18/23 19:33 Weight last 48 hrs Weight 144 lb Physical Exam 2 Narrative: General: pleasant white male, appears to be in some distress. On 8L oxymask. HEENT: normocephalic, neck supple no thyromegaly noted. Cardio: normal rhythm, S1-S2 noted, no murmurs rubs or gallops noted. Lungs sounds clear on right upper and lower lobes, left side upper and lower lobes diminished. GI: Soft, non-tender, inspection normal. Bowel sounds active in all quadrants. Extremities: no edema, clubbing. Full ROM :deferred. Skin: no rash, no wounds. Neuro: alert and oriented x 3, moves all extremities . Data 11/18/23 19:31 11/18/23 19:31 Other Labs: WBC: 15.09, Lymphocytes: 6.6 RBC 3.53, Hgb 9.50, HCT 31.3%, Plt 151 PT 15.20, INR 1.16 BUN 17, Reflexologist 1.3 Baseline troponin 76, troponin 2hr: 85.85 BNP 848 Total protein 4.7, albumin 2.9 UA: negative for active infection EKG: Normal sinus rhythm with heart rate noted to be in the 60s. Chest x-ray impression: -Small left pneumothorax suspected in the apex and left costophrenic sulcus. -No other significant interval radiographic change. Known right hilar enlargement due to underlying neoplasm and mild infrahilar streaky density/atelectasis. Chest CTA impression: New finding of small to moderate sized left pneumothorax. No evidence of pulmonary artery thromboembolism. Head CT impression: No acute intracranial abnormality. Moderate cerebral parenchymal atrophy and chronic microvascular parenchymal change. Further evaluation with MR as clinically warranted Micro: Microbiology 11/18/23 20:36 Blood Culture - Preliminary Blood SPECIMEN COLLECTED 11/18/23 20:32 Blood Culture - Preliminary Blood SPECIMEN COLLECTED A&P Assessment and plan (1) Pneumothorax: Patient came in with shortness of breath, CTA showed small to moderate left pneumothorax. Patient currently on 8 L oximask, titrate oxygen as tolerated. Close cardiac monitoring Dr. Dent consulted. Supplement oxygen as needed (2) Chronic obstructive pulmonary disease: DuoNeb, budesonide ordered Goal oxygen stat 90 to 94% Supplement oxygen as needed Qualifiers: COPD type: emphysema Emphysema type: unspecified Qualified Code(s): J 43.9 - Emphysema, unspecified (3) Leukocytosis: White blood count minimally elevated at 15.08 CBC in a.m. 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 Patient was supposed to receive first round of chemoimmunotherapy tomorrow-unable to proceed until after treatment for left pneumothorax. 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 Patient presents to the emergency department with below listed complaints. Patient arrived to the Emergency Department today via EMS with chief complaint of severe left sided chest pain and shortness of breath. These symptoms began around 1600, EMS was then called and brought to the Emergency Department. Patient currently on 8 L oxygen mask stating 94%, denies wearing oxygen at home. noted to be sitting at bedside. He was recently seen outpatient on 11/17/23 for a Port-A-Cath placement and reports no complications during or after this procedure. Follow-up chest x-ray did not demonstrate a pneumothorax at that time. Denies any new medication changes, fever, cough, recent falls. Denies chest pain currently. Chest CTA demonstrated a left pneumothorax. Patient to be admitted to cardiac stepdown unit for further monitoring and possible intervention of left pneumothorax. While in the emergency department patient received 1L NS bolus. CBC, CMP, PT, INR, UA, blood cultures were ordered and obtained. Chest x-ray, chest CTA, head CT, EKG were ordered and obtained as well. The emergency department is called chest surgery to follow pneumothorax. At this time it is not believe the patient needs a chest tube/chest vent. Medications/Allergies Home Medications Medication Instructions Recorded Confirmed Last Taken Type hydroxyzine HCl 10 mg tablet 10 mg PO TID PRN Anxiety 04/26/20 11/16/23 11/16/23 History pravastatin 40 mg tablet 40 mg PO DAILY 04/26/20 11/18/23 11/16/23 History sennosides 8.6 mg tablet (Natural 8.6 mg PO TID 04/26/20 11/18/23 11/16/23 History Senna Laxative) morphine 15 mg immediate release 15 mg PO Q6H PRN pain 30 days #120 10/05/23 11/16/23 11/16/23 Rx tablet tabs seated wheeled walker #1 ea 10/06/23 11/18/23 Unknown Rx budesonide 160 mcg-glycopyr 9 2 inh inhalation BID 10/09/23 11/16/23 11/16/23 History mcg-formot 4.8 mcg/actuation HFA inhaler (Breztri Aerosphere) famotidine 40 mg tablet 40 mg PO DAILY 10/15/23 11/16/23 11/16/23 History gabapentin 300 mg capsule 300 mg PO TID 10/15/23 11/16/23 11/17/23 History ibrutinib 280 mg tablet (Imbruvica) 280 mg PO DAILY 10/15/23 11/16/23 11/16/23 History ondansetron 8 mg disintegrating 8 mg PO DAILY 10/15/23 11/18/23 11/17/23 History tablet morphine 100 mg tablet,extended 100 mg PO Q12H 30 days #60 tabs 10/23/23 11/16/23 11/16/23 Rx release wheelchair #1 ea 10/23/23 11/18/23 Unknown Rx levothyroxine 88 mcg capsule 88 mcg PO DAILY #90 caps 10/26/23 11/16/23 11/17/23 Rx metoclopramide HCl 10 mg tablet 10 mg PO TIDWM 11/16/23 11/16/23 11/16/23 History docusate sodium 100 mg capsule 100 mg PO BID #10 caps 11/17/23 Unknown Rx (Colace) hydrocodone 7.5 mg-acetaminophen 1 tab PO Q6H PRN pain #14 tabs 11/17/23 Unknown Rx 325 mg tablet dexamethasone 4 mg tablet 20 mg (5 x 4 mg) PO DIRECTED 11/18/23 11/18/23 Unknown Rx #40 tabs lorazepam 1 mg tablet 0.5 - 1 mg (0.5 - 1 x 1 mg) PO Q6H 11/18/23 Unknown Rx PRN Severe Nausea #30 tabs prochlorperazine maleate 10 mg 10 mg PO Q4H PRN Mild Nausea #30 11/18/23 11/18/23 Unknown Rx tablet (Compazine) tabs Allergies Allergy/AdvReac Type Severity Reaction Status Date / Time adhesive tape Allergy ALGY-Bliste Verified 11/16/23 14:01 r PFSH Acute 2 PFSH: Medical History Metastasis to bone Compression fracture Non-small cell lung cancer Degenerative joint disease of spine History of hepatitis C Completed treatment in 2014 Anxiety Depression Chronic insomnia Chronic obstructive pulmonary disease 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 - T1o, N2boh, M0 Chronic lymphocytic leukemia of B-cell type not having achieved remission Surgical History Status post surgical removal of malignant neoplasm of skin (2017) Excision of basal cell carcinoma from the left parietal scalp History of lymph node biopsy (07/15/12) Left axillary lymph node biopsy History of cervical spinal surgery (2006) Surgery for neck fracture History of back surgery (2016) History of laryngoscopy Hx of tonsillectomy (07/06/12) Right tonsillectomy, partial pharyngectomy, right base of tongue resection, and right modified radical neck dissection Family History Mother Hypertension Father Diabetes Cancer lymphoma Grandfather Cancer Paternal-unknown Other CAD (coronary artery disease) Hyperlipidemia Denies family history of Clotting disorder Dementia Psychiatric illness Chronic kidney disease (CKD) Suicide Anesthesia complication Bleeding disorder Lung disease Stroke Social History Smoking and tobacco/nicotine status: former use of tobacco/nicotine Quit status (tobacco/nicotine): has quit using Year quit tobacco: 2013 Former quit date comment: 2 ppd X 41 years Alcohol intake: never Substance/Drug Use: current Substance/Drug use frequency: daily Other substance/drug use details: Medical Lives independently: Yes Marital status: Number of children: 3 Current occupational status: disabled Special nati needs: No Agree to transfusion: Yes Physical Exam 2 Narrative: General: pleasant white male, mildly tachypneic HEENT: normocephalic, neck supple no thyromegaly noted. Cardio: normal rhythm, S1-S2 noted, no murmurs rubs or gallops noted. Lungs sounds clear on right upper and lower lobes, left side upper and lower lobes diminished. GI: Soft, non-tender, inspection normal. Bowel sounds active in all quadrants. Extremities: no edema, clubbing. Full ROM :deferred. Skin: no rash, no wounds. Neuro: alert and oriented x 3, moves all extremities . Data 11/18/23 19:31 11/18/23 19:31 Other Labs: WBC: 15.09, Lymphocytes: 6.6 RBC 3.53, Hgb 9.50, HCT 31.3%, Plt 151 PT 15.20, INR 1.16 BUN 17, Reflexologist 1.3 Baseline troponin 76, troponin 2hr: 85.85 BNP 848 Total protein 4.7, albumin 2.9 UA: negative for active infection EKG: Normal sinus rhythm with heart rate noted to be in the 60s. I reviewed this personally. Right bundle branch block is noted. Left axis deviation is noted. Poor R wave progression. Chest x-ray impression: I reviewed this personally -Small left pneumothorax suspected in the apex and left costophrenic sulcus. -No other significant interval radiographic change. Known right hilar enlargement due to underlying neoplasm and mild infrahilar streaky density/atelectasis. Chest CTA impression: I reviewed this personally New finding of small to moderate sized left pneumothorax. No evidence of pulmonary artery thromboembolism. Head CT impression: No acute intracranial abnormality. Moderate cerebral parenchymal atrophy and chronic microvascular parenchymal change. Further evaluation with MR as clinically warranted A&P Assessment and plan (1) Pneumothorax: Patient came in with shortness of breath, CTA showed small to moderate left pneumothorax. Patient currently on 8 L oximask, titrate oxygen as tolerated. I suspect he will not need a significant amount of oxygen. Close cardiac monitoring/patient monitoring in the cardiac stepdown unit Note that the patient underwent port placement, left chest yesterday. There was no pneumothorax following the surgery on chest x-ray. CT scan demonstrates small to moderate size pneumothorax. Currently the patient is asymptomatic, and without any discomfort. Dr. Dent consulted. Supplement oxygen as needed If no chest tube or vent is needed, and pneumothorax seems to improve on chest x-ray, there is possibility of early discharge. (2) Chronic obstructive pulmonary disease: Qualifiers: COPD type: emphysema Emphysema type: unspecified Qualified Code(s): J 43.9 - Emphysema, unspecified (3) Leukocytosis: White blood count minimally elevated at 15.08 No evidence of pneumonia on CT At this point I believe the elevated white blood cell count is secondary to demargination from stress CBC in a.m. Patient has diagnose of small lymphocytic lymphoma/CLL. His white blood cell count is usually upper limits of normal to slightly elevated. 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 Patient was supposed to receive first round of chemoimmunotherapy tomorrow-unable to proceed until after treatment for left pneumothorax. Will need to reschedule. Plan Mild acute kidney injury. Allow oral hydration, low-dose IV fluids. BNP slightly high but patient clinically has no evidence of heart failure Troponin slightly high. Patient is without chest discomfort currently. No dynamic EKG changes that are concerning. Continue to trend. This appears to be a type II elevation. Anemia. I suspect this is related to his surgery that he had yesterday. Recheck CBC in the morning. Continue to monitor. Multiple other medical problems as outlined in this past medical history Full code currently SCDs for DVT prophylaxis. Lovenox for DVT prophylaxis. Attestations 2 Medical Necessity Statement*: Will possibly need less than 2 midnight stay for evaluation and treatment of pneumothorax if chest tube is not needed. 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
--- NOTE | 2023-11-18 22:37 | PC.RESP ---
EKG ORDERED IN ER 11/18/2023 @ 2023, NOT COMPLETED PRIOR TO PATIENT TRANSFERRING TO CSU.
[2023-11-18] MEDS: sodium chloride 0.9% 1,000 ML 50 ML IV (23:47)
[2023-11-19] VITALS (15 sets, daily range): BP systolic 107–177; BP diastolic 58–89; PULSE 51–63; RESP 4–21; TEMP 36.5–36.8; O2SAT 94–100
[2023-11-19] MEDS: morphine ER (12 HR) 100 mg Tablet PO ×3 (00:16→21:59)
--- NOTE | 2023-11-19 00:17 | ECG_ITS ---
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 Measurements Intervals [place] Rate: 55 P: 55 WA: 151 QRS: -85 QRSD: 142 T: 29 QT: 410 QTc: 394 Interpretive Statements SINUS BRADYCARDIA RIGHT BUNDLE BRANCH BLOCK [120+ ms QRS DURATION, UPRIGHT V1, 40+ ms S IN I/aVL/V4/V5/V6] POSSIBLE ANTERIOR MYOCARDIAL INFARCTION , OF INDETERMINATE AGE [30 ms Q WAVE IN V3/V4, OR R < 0.2 mV IN V4] INFERIOR MYOCARDIAL INFARCTION , OF INDETERMINATE AGE [40+ ms Q WAVE AND/OR ST/T ABNORMALITY IN II/aVF] Compared to ECG 11/18/2023 18:19:29 Myocardial infarct finding now present Sinus rhythm no longer present Left-axis deviation no longer present Electronically Signed On 11-19-2023 23:10:[address] M.D. [email or web address]
[2023-11-19 01:19] LABS: Troponin 5 6HR 83.71 ng/L (0-15); Troponin 5 6HR Delta 7.71 ng/L (0-12)
[2023-11-19] MEDS: levothyroxine 88 mcg Tablet PO (06:02)
[2023-11-19] MEDS: morphine IR 15 mg Tablet PO ×3 (06:02→21:59)
--- NOTE | 2023-11-19 06:03 | P.CONIM_ITS ---
Providers/Reason For Consult 2 Consulting Physician/Specialty*: Dr. Dent cardiothoracic surgery Reason for Consult*: Left pneumothorax, probable iatrogenic Requesting Physician: Dr. Brock Attending Physician: Roosevelt Caraballo MD Primary Care Provider: Braxton Diamond MD History of Present Illness History of Present Illness Apolinar Nix is a 63 year old male who presented to the emergency department yesterday evening with complaints of left-sided chest discomfort. Septic evaluations revealed a small left pneumothorax which was confirmed by CT scan. I was contacted by Dr. Brock that Mr. Nix would be admitted to the hospital service and requested that I provide surgical follow-up. At the time of our conversation, I was unaware that Mr. Nix and had a left subclavian Port-A-Cath placed 1 day prior by one of our staff surgeons at request of oncology in preparation for chemotherapy for small cell carcinoma of the right lung demonstrated as a right hilar mass. At the time of my rounds this morning Mr. Nix is resting reasonably comfortably on his right side in the CSU bed 104. He does complain of left mid and lower lateral chest discomfort which he states is unchanged from previous. He is on nasal cannula oxygen. I had a rather lengthy conversation with him and he was able to converse without difficulties and with long sentences. Vital signs appear to be stable O2 saturation currently 97%. A morning chest x-ray is not performed as of yet. He has no prior history for spontaneous pneumothorax. 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 He is currently under oncology management. [facility] under the direction of Dr. Ochoa. Current small cell diagnosis was obtained after bronchoscopy and EBUS by Dr. Gonzalez on October 20. PET scan imaging of October 26 reveals evidence for numerous osseous lesions compatible with metastasis. This includes areas of the spine including possible pathologic fracture of L4 with of the lesions including T10 and left acetabulum. Also of note is there is a substantial lesion in the left scapula which may be also contributing to his left-sided chest discomfort. I have personally reviewed the chest x-ray and CT scans performed upon this admission yesterday evening. Review of Systems 2 Const: Reports: fatigue ENMT: Denies: hoarseness Card: Denies: irregular heart rhythm Resp: Reports: dyspnea Musc: Reports: neck pain and back pain Neuro: Denies: headache(s) or numbness in extremities Medications/Allergies Home Medications Medication Instructions Recorded Confirmed Last Taken Type hydroxyzine HCl 10 mg tablet 10 mg PO TID PRN Anxiety 04/26/20 11/16/23 11/16/23 History pravastatin 40 mg tablet 40 mg PO DAILY 04/26/20 11/18/23 11/16/23 History sennosides 8.6 mg tablet (Natural 8.6 mg PO TID 04/26/20 11/18/23 11/16/23 History Senna Laxative) morphine 15 mg immediate release 15 mg PO Q6H PRN pain 30 days #120 10/05/23 11/16/23 11/16/23 Rx tablet tabs seated wheeled walker #1 ea 10/06/23 11/18/23 Unknown Rx budesonide 160 mcg-glycopyr 9 2 inh inhalation BID 10/09/23 11/16/23 11/16/23 History mcg-formot 4.8 mcg/actuation HFA inhaler (Breztri Aerosphere) famotidine 40 mg tablet 40 mg PO DAILY 10/15/23 11/16/23 11/16/23 History gabapentin 300 mg capsule 300 mg PO TID 10/15/23 11/16/23 11/17/23 History ibrutinib 280 mg tablet (Imbruvica) 280 mg PO DAILY 10/15/23 11/16/23 11/16/23 History ondansetron 8 mg disintegrating 8 mg PO DAILY 10/15/23 11/18/23 11/17/23 History tablet morphine 100 mg tablet,extended 100 mg PO Q12H 30 days #60 tabs 10/23/23 11/16/23 11/16/23 Rx release wheelchair #1 ea 10/23/23 11/18/23 Unknown Rx levothyroxine 88 mcg capsule 88 mcg PO DAILY #90 caps 10/26/23 11/16/23 11/17/23 Rx metoclopramide HCl 10 mg tablet 10 mg PO TIDWM 11/16/23 11/16/23 11/16/23 History docusate sodium 100 mg capsule 100 mg PO BID #10 caps 11/17/23 Unknown Rx (Colace) hydrocodone 7.5 mg-acetaminophen 1 tab PO Q6H PRN pain #14 tabs 11/17/23 Unknown Rx 325 mg tablet dexamethasone 4 mg tablet 20 mg (5 x 4 mg) PO DIRECTED 11/18/23 11/18/23 Unknown Rx #40 tabs lorazepam 1 mg tablet 0.5 - 1 mg (0.5 - 1 x 1 mg) PO Q6H 11/18/23 Unknown Rx PRN Severe Nausea #30 tabs prochlorperazine maleate 10 mg 10 mg PO Q4H PRN Mild Nausea #30 11/18/23 11/18/23 Unknown Rx tablet (Compazine) tabs Allergies Allergy/AdvReac Type Severity Reaction Status Date / Time adhesive tape Allergy ALGY-Bliste Verified 11/16/23 14:01 r Current Medications Generic Name Dose Route Start Last Admin Trade Name Freq PRN Reason Stop Dose Admin Albuterol/Ipratropium 3 ml 11/19/23 02:00 11/19/23 02:49 Ipratropium-Albuterol 3 Ml Neb INHALATION Not Given Q6H.RESP CAROL Heparin Sodium (Porcine) 5,000 unit 11/18/23 23:00 11/19/23 01:55 Heparin 5,000 Unit/Ml Inj 1 Ml SUBCUT Not Given Q12H CAROL Sodium Chloride 1,000 mls @ 50 mls/hr 11/18/23 22:39 11/18/23 23:47 Sodium Chloride 0.9% IV 50 mls/hr .Q20H CAROL Administration Morphine Sulfate 100 mg 11/18/23 23:00 11/19/23 00:16 Morphine Er (12 Hr) 100 Mg Tablet PO 100 mg Q12H CAROL Administration PFSH Acute 2 PFSH: Medical History Metastasis to bone Compression fracture Non-small cell lung cancer Degenerative joint disease of spine History of hepatitis C Completed treatment in 2014 Anxiety Depression Chronic insomnia Chronic obstructive pulmonary disease 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 - T1o, N2boh, M0 Chronic lymphocytic leukemia of B-cell type not having achieved remission Surgical History Status post surgical removal of malignant neoplasm of skin (2018) Excision of basal cell carcinoma from the left parietal scalp History of lymph node biopsy (07/15/12) Left axillary lymph node biopsy History of cervical spinal surgery (2007) Surgery for neck fracture History of back surgery (2016) History of laryngoscopy Hx of tonsillectomy (07/06/12) Right tonsillectomy, partial pharyngectomy, right base of tongue resection, and right modified radical neck dissection Family History Mother Hypertension Father Diabetes Cancer lymphoma Grandfather Cancer Paternal-unknown Other CAD (coronary artery disease) Hyperlipidemia Denies family history of Clotting disorder Dementia Psychiatric illness Chronic kidney disease (CKD) Suicide Anesthesia complication Bleeding disorder Lung disease Stroke Social History Smoking and tobacco/nicotine status: former use of tobacco/nicotine Quit status (tobacco/nicotine): has quit using Year quit tobacco: 2013 Former quit date comment: 2 ppd X 41 years Alcohol intake: never Substance/Drug Use: current Substance/Drug use frequency: daily Other substance/drug use details: Medical Lives independently: Yes Marital status: Number of children: 3 Current occupational status: disabled Special nati needs: No Agree to transfusion: Yes Vitals/I&O/Wt Last Vital Signs Temp 98.0 F 11/19/23 03:39 Pulse 52 L 11/19/23 04:24 Resp 4 L 11/19/23 04:24 BP 126/75 11/19/23 04:24 Pulse Ox 96 11/19/23 04:24 O2 Del Method Nasal Cannula 11/19/23 04:24 O2 Flow Rate 2 11/19/23 02:49 Weight last 48 hrs Weight 143 lb 6 oz Weight 144 lb Weight 144 lb Physical Exam 2 Const: COMMON NORMALS: patient oriented x3 HENMT: COMMON NORMALS: normocephalic, atraumatic, hearing grossly normal bilaterally, external ears normal and Normal external nose present HEAD & SCALP: normocephalic and atraumatic NOSE: Normal external nose present E XTERNAL EAR: Yes external ears normal Neck/C-Spine: OTHER: Prior modified right radical neck dissection Chest: OTHER: Left anterior subclavicular Port-A-Cath in position. No substantial simultaneous emphysema. Resp: COMMON NORMALS: normal respiratory effort, No retractions, No use of accessory muscles and clear to auscultation bilaterally AUSCULTATION: clear to auscultation bilaterally Cardio: COMMON NORMALS: regular rate, regular rhythm and S1 normal heart sound present RATE: regular rate RHYTHM: regular rhythm HEART SOUNDS: S1 normal heart sound present GI: COMMON NORMALS: Normal to inspection, nondistended, normoactive bowel sounds present Extremity: COMMON NORMALS: no clubbing, cyanosis or edema Neuro: COMMON NORMALS: patient oriented x3, moves all extremities, no focal motor deficits and no sensory deficits noted Data 11/18/23 19:31 11/18/23 19:31 Micro: Microbiology 11/18/23 20:36 Blood Culture - Preliminary Blood SPECIMEN COLLECTED 11/18/23 20:32 Blood Culture - Preliminary Blood SPECIMEN COLLECTED A&P Assessment and plan (1) Pneumothorax: 63-year-old gentleman with small cell carcinoma of the right hilum with evidence for metastatic disease status post Port-A-Cath placement on November 16 for planned initiation of chemotherapy. Patient presented emergency department with left- sided pneumothorax which appears to be a delayed presentation postprocedural. Plan: Will await morning's x-ray. I recommend continuing oxygen for nitrogen washout as well as limiting activities. Patient appears to be stable and other than some left-sided pleuritic discomfort appears not to have substantial pulmonary difficulty. As well, he has a substantial left scapular metastatic lesion which might also be attributing to his left-sided chest discomfort. At the time of my contact concerning Mr. Nix's presentation, I was unaware that his pneumothorax was postprocedural, however given its rather delayed presentation and no substantial respiratory difficulties, it is probably reasonable now to continue close observation. Qualifiers: Pneumothorax type: postprocedural Qualified Code(s): J95.811 - Postprocedural pneumothorax Consult Attestations 2 Medical Necessity Statement: Left pneumothorax, postprocedural. Coding Level of Care Code Acute Code for [facility] Fwd Diagnoses Postprocedural pneumothorax J95.811 Pneumothorax type: postprocedural
--- NOTE | 2023-11-19 07:00 | XRR_ITS ---
PROCEDURE INFORMATION: Exam: XR Chest Exam date and time: 11/19/2023 7:24 AM Age: 63 years old Clinical indication: Condition or disease; Lung condition and disease; history of known left pneumothorax; Additional info: Follow up ptx TECHNIQUE: Imaging protocol: Radiologic exam of the chest. 2image(s) are provided. Views: 1 view. COMPARISON: 1. CT angio chest PE protcl [id number] 11/18/2023 8:48 PM 2. CR (CHEST, ) 11/18/2023 6:46 PM 3. CR XR chest 1V portable [id number] 11/17/2023 11:17 AM FINDINGS: Tubes, catheters and devices: The left port catheter remains. Lungs: There is some progressive patchy atelectatic consolidation with volume loss and coalescence of the right lung base corresponding to the previous descriptions suggestive of some inflammation, aspiration or postobstructive related corresponding changes. Pleural spaces: There is some subtle costophrenic angle blunting. There is a small to moderate left pneumothorax demonstrated with inferolateral predominance similar compared to the CT disciplinary hearing officer radiograph overall. The appearance is subtly more pronounced as compared to the previous chest radiograph. Heart/Mediastinum: The cardiomediastinal silhouette is upper normal in size.This can be seen with central averaging as well as pardeep enlargement.No cardiac decompensation is appreciated. Diaphragm: There is slight asymmetric right hemidiaphragm elevation. Bones/joints: Osseous alignment is maintained. No interval displaced fracture or dislocation is appreciated. Soft tissues: No radiopaque foreign body or subcutaneous emphysema is appreciated. Other findings: No other significant interval changes are appreciated. XR/XR chest 1V portable [id number] IMPRESSION: 1. There is a small to moderate left pneumothorax with inferolateral predominance demonstrated. The appearance is subtly increased compared to the associated previous chest radiograph although with some similar overall interval appearance compared to the CT disciplinary hearing officer radiograph. 2. There is some progressive patchy atelectatic consolidation with volume loss with right basilar predominance demonstrated and could represent some inflammatory as well as postobstructive related progression. There are lesser changes on the left.
--- NOTE | 2023-11-19 07:42 | PC.NURSE ---
Called oncology dept to notify them that the pt is in the hospital as he was to have a chemo treatment today and also to find out if it would be okay to access his implanted port. Was informed that it would be ok to access hisimplanted port.
[2023-11-19] MEDS: budesonide 0.5 mg/2 mL Neb INHALATION ×2 (07:52→20:37)
[2023-11-19] MEDS: ipratropium-albuterol 3 mL Neb INHALATION ×3 (07:52→20:37)
[2023-11-19 08:02] LABS: Basophils % 0.1 %; Eosinophils % 0.1 %; Hematocrit 33.7 % (37-53); Lymphocytes # 6.4 10^3/uL (0.8-4.8); Lymphocytes % 43.5 %; Mean Corpuscular HGB Conc 30.3 g/dL (30-55); Mean Corpuscular Hemoglobin 26.6 pg (27-33); Mean Platelet Volume 10.7 fL (7.4-10.4); Monocytes # 0.6 10^3/uL (0.2-0.9); Neutrophils # 7.58 10^3/uL (1.8-7.7); Neutrophils % 51.6 %; Nucleated Red Blood Cells % 0 %; Platelet Count 156 10^3/cmm (157-399); Red Blood Count 3.83 10^6/uL (3.85-5.65); Red Cell Distribution Width 14.1 % (12.1-15.1)
[2023-11-19 08:16] LABS: Anion Gap 9.8 (5-19); Blood Urea Nitrogen 12 mg/dL (8-23); Calcium 8.3 mg/dL (8.5-10.5); Carbon Dioxide 25 mmol/L (22-29); Chloride 109 mmol/L (98-107); Creatinine Clr Calc Pharmacy 77.2781; Glomerular Filtration Rate 85.2 mL/min (90-130); Glucose 93 mg/dL (65-115); Osmolality Calculated 289 mOsm/kg (285-295); Potassium 3.8 mmol/L (3.5-5.1); Sodium 140 mmol/L (136-145)
[2023-11-19] MEDS: atorvastatin 40 mg Tablet 20 MG PO (08:24)
[2023-11-19] MEDS: acetaminophen 325 mg Tablet 650 MG PO ×2 (08:24→18:09)
[2023-11-19] MEDS: famotidine 20 mg Tablet 40 MG PO (08:24)
[2023-11-19] MEDS: docusate sodium 100 mg Capsule PO ×2 (08:25→17:29)
[2023-11-19] MEDS: gabapentin 300 mg Capsule PO ×3 (08:25→20:20)
[2023-11-19 09:04] LABS: Slide Review Slide Review Perform
--- NOTE | 2023-11-19 09:20 | PC.CHAP ---
Pastoral Care Encounter/Spiritual Assessment Type of Contact [] Declined vacation sales advisor visit [] Patient/Family/Request visit [] Outpatient visit [] Follow-up visit [] Physician referral [] Code/Alert [x] Routine visit [] Staff referral [] Actively dying [] Patient sleeping [x] Family support [] [] Out of room [] Palliative care [] [] Receiving care in room [] Pre-surgical visit [] Trauma [] Long length of stay [] ICU visit [] Other: Relational/Emotional Strength [x] Patient feels connected with others/family/visitors/staff [] Distress [] Loneliness/isolation [] Abandonment Spirituality of Patient [x] Person of Siri [] Attends Buddhism of their Siri [x] Believes in Prayer [] Reads Bible or Christianity materials [] There are Spiritual issues to be addressed Director Internal Audit Interventions [x] Prayer [x] Active listening [] Non-anxious presence [x] Spiritual/emotional support [] Crisis/trauma care [] Spiritual counseling [] Bereavement support [] Provided bereavement packet [] Provided Bible/devotional materials [] Provided toy/stuffed animal, coloring book to patient or family member [] Provided Communion [] Anointing/[place] [] Salvation [x] Completed spiritual assessment [] Other: Impact on Illness or Injury [] Angry [] Fearful [] Anxious [] Often cries [] Exhaustion [] Unable to work [] Unable to attend sikh [] Unable to walk/stand [] Unable to read [] Unable to drive [] Unable to eat/drink [] Unable to sleep [] Unable to be with family [] Patient intubated [] Other: Summary Time spent with patient 5 min
[2023-11-19] MEDS: sodium chloride 0.9% 1,000 ML 50 ML IV ×2 (10:05→21:57)
--- NOTE | 2023-11-19 11:48 | PC.NURSE ---
Pt refuses heparin injections and allowing acess to implanted port to Left Upper Chest at this time.
--- NOTE | 2023-11-19 12:02 | P.PN_ITS ---
Subjective 2 Subjective: Seen this morning. Chest x-ray from the morning shows mild worsening of pneumothorax. Vitals/I&O/Wt Last Vital Signs Temp 97.9 F 11/19/23 11:28 Pulse 61 11/19/23 11:28 Resp 14 11/19/23 11:28 BP 150/79 11/19/23 11:28 Pulse Ox 98 11/19/23 11:28 O2 Del Method Nasal Cannula 11/19/23 11:28 O2 Flow Rate 2 11/19/23 07:56 11/18/23 11/19/23 11/19/23 22:59 06:59 14:59 Intake Total 635 / 635 Output Total 200 / 200 Balance 435 / 435 Weight last 48 hrs Weight 65.034 kg Weight 65.317 kg Weight 65.317 kg Physical Exam 2 Const: COMMON NORMALS: patient oriented x3 HENMT: COMMON NORMALS: normocephalic, atraumatic, hearing grossly normal bilaterally, external ears normal and Normal external nose present HEAD & SCALP: normocephalic and atraumatic NOSE: Normal external nose present E XTERNAL EAR: Yes external ears normal Neck/C-Spine: OTHER: Prior modified right radical neck dissection Chest: OTHER: Left anterior subclavicular Port-A-Cath in position. No substantial simultaneous emphysema. Resp: COMMON NORMALS: normal respiratory effort, No retractions, No use of accessory muscles and clear to auscultation bilaterally AUSCULTATION: clear to auscultation bilaterally Cardio: COMMON NORMALS: regular rate, regular rhythm and S1 normal heart sound present RATE: regular rate RHYTHM: regular rhythm HEART SOUNDS: S1 normal heart sound present GI: COMMON NORMALS: Normal to inspection, nondistended, normoactive bowel sounds present Extremity: COMMON NORMALS: no clubbing, cyanosis or edema Neuro: COMMON NORMALS: patient oriented x3, moves all extremities, no focal motor deficits and no sensory deficits noted Data 11/19/23 07:52 11/19/23 07:52 Micro: Microbiology 11/18/23 20:36 Blood Culture - Preliminary Blood SPECIMEN COLLECTED 11/18/23 20:32 Blood Culture - Preliminary Blood SPECIMEN COLLECTED A&P Assessment and plan (1) Pneumothorax: Patient came in with shortness of breath, CTA showed small to moderate left pneumothorax. Patient currently on 8 L oximask, titrate oxygen as tolerated. I suspect he will not need a significant amount of oxygen. Close cardiac monitoring/patient monitoring in the cardiac stepdown unit Note that the patient underwent port placement, left chest yesterday. There was no pneumothorax following the surgery on chest x-ray. CT scan demonstrates small to moderate size pneumothorax. Currently the patient is asymptomatic, and without any discomfort. Dr. Dent consulted. Supplement oxygen as needed If no chest tube or vent is needed, and pneumothorax seems to improve on chest x-ray, there is possibility of early discharge. Plan is to repeat x-ray in a.m. to evaluate pneumothorax. If no progression is noted will discuss with CT surgery and potentially discharge him home otherwise plan to do a Thora vent. Qualifiers: Pneumothorax type: postprocedural Qualified Code(s): J95.811 - Postprocedural pneumothorax (2) Chronic obstructive pulmonary disease: DuoNeb, budesonide ordered Goal oxygen stat 90 to 94% Supplement oxygen as needed Qualifiers: COPD type: emphysema Emphysema type: unspecified Qualified Code(s): J 43.9 - Emphysema, unspecified (3) Leukocytosis: White blood count minimally elevated at 15.08 No evidence of pneumonia on CT At this point I believe the elevated white blood cell count is secondary to demargination from stress CBC in a.m. Patient has diagnose of small lymphocytic lymphoma/CLL. His white blood cell count is usually upper limits of normal to slightly elevated. Possibility of postobstructive pneumonia as there does seem to be a consolidation visible on x-ray. Elevated leukocytosis reactive versus infection. I will go ahead and start patient on Levaquin 750 daily x 7 days total. 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 Patient was supposed to receive first round of chemoimmunotherapy tomorrow-unable to proceed until after treatment for left pneumothorax. Will need to reschedule. Plan Mild acute kidney injury. Allow oral hydration, low-dose IV fluids. BNP slightly high but patient clinically has no evidence of heart failure Troponin slightly high. Patient is without chest discomfort currently. No dynamic EKG changes that are concerning. Continue to trend. This appears to be a type II elevation. Anemia. I suspect this is related to his surgery that he had yesterday. Recheck CBC in the morning. Continue to monitor. Multiple other medical problems as outlined in this past medical history Full code currently SCDs for DVT prophylaxis. Lovenox for DVT prophylaxis. Attestations 2 Medical Necessity Statement*: Will possibly need less than 2 midnight stay for evaluation and treatment of pneumothorax if chest tube is not needed. 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
[2023-11-19] MEDS: levofloxacin-dextrose 5 % 750 MG/150 ML PREMIX 100 MG IV (13:04)
--- NOTE | 2023-11-19 17:21 | PC.NURSE ---
Just notified by the ADMINISTRATIVE TECHNICIAN that the of this pt is upset of a small skin tear to the pt's SANCHEZ. Apparently, the or pt has mentioned this fact to the ADMINISTRATIVE TECHNICIAN on 4 seperate occasions today and now the is wanting to speak to my manager social about this skin tear that the apparently has placed a band aid over. At no time today in all of the times that this technical writer has gone into the room and have spoken to the and pt has it ever been brought up about a skin tear that happened when he had his x-ray performed at 0700 this morning.
--- NOTE | 2023-11-19 17:25 | PC.NURSE ---
Patient told me he received a skin tear this morning while getting an xray a few times. i reported to his nurse and my charge nurse Huber.
[2023-11-20] VITALS (10 sets, daily range): BP systolic 126–147; BP diastolic 90–99; PULSE 58–71; RESP 16–20; TEMP 36.6–37.2; O2SAT 94–98
[2023-11-20] MEDS: acetaminophen 325 mg Tablet 650 MG PO (02:29)
[2023-11-20] MEDS: morphine IR 15 mg Tablet PO (04:13)
[2023-11-20 04:51] LABS: Basophils % 0.2 %; Eosinophils % 0.1 %; Hematocrit 33.7 % (37-53); Lymphocytes # 4.9 10^3/uL (0.8-4.8); Lymphocytes % 33.1 %; Mean Corpuscular HGB Conc 31.8 g/dL (30-55); Mean Corpuscular Hemoglobin 27.3 pg (27-33); Mean Platelet Volume 10.8 fL (7.4-10.4); Monocytes # 0.7 10^3/uL (0.2-0.9); Neutrophils # 8.93 10^3/uL (1.8-7.7); Neutrophils % 60.9 %; Nucleated Red Blood Cells % 0 %; Platelet Count 144 10^3/cmm (157-399); Red Blood Count 3.92 10^6/uL (3.85-5.65); Red Cell Distribution Width 13.6 % (12.1-15.1); White Blood Count 14.67 10^3/uL (3.29-11.43)
[2023-11-20 05:13] LABS: Blood Urea Nitrogen 9 mg/dL (8-23); Calcium 8.7 mg/dL (8.5-10.5); Carbon Dioxide 25 mmol/L (22-29); Chloride 103 mmol/L (98-107); Creatinine Clr Calc Pharmacy 86.9378; Glomerular Filtration Rate 97.6 mL/min (90-130); Glucose 131 mg/dL (65-115); Osmolality Calculated 284 mOsm/kg (285-295); Sodium 137 mmol/L (136-145)
[2023-11-20] MEDS: levothyroxine 88 mcg Tablet PO (05:51)
--- NOTE | 2023-11-20 07:00 | XR_ITS ---
WS: [id number] XR chest 1V portable [id number] REASON FOR EXAM: re-eval penumothorax FINDINGS: Compared to the previous day's examination, there is now complete atelectasis of the right lower lobe . There is increased atelectasis in the left lung base. Left pneumothorax persists with a small amount of pleural air over the left lung apex with a larger v olume around the left lung base and a small volume interposed between the left lung and the mediastin um. Overall the volume of the pneumothorax has not changed significantly. XR/XR chest 1V portable [id number] IMPRESSION: Interval complete atelectasis of the right lower lung. Increased atelectasis in the left lower lung with persistent left pneumothorax.
[2023-11-20] MEDS: docusate sodium 100 mg Capsule PO (08:36)
[2023-11-20] MEDS: gabapentin 300 mg Capsule PO (08:36)
[2023-11-20] MEDS: famotidine 20 mg Tablet 40 MG PO (08:36)
[2023-11-20] MEDS: atorvastatin 40 mg Tablet 20 MG PO (08:36)
[2023-11-20] MEDS: ipratropium-albuterol 3 mL Neb INHALATION (08:44)
[2023-11-20] MEDS: budesonide 0.5 mg/2 mL Neb INHALATION (08:44)
[2023-11-20] MEDS: heparin 5,000 unit/mL INJ 1 mL 5000 UNIT SUBCUT (11:23)
[2023-11-20] MEDS: morphine ER (12 HR) 100 mg Tablet PO (11:24)
--- NOTE | 2023-11-20 12:33 | PM.DCS ---
Discharge Providers Date of Admission: 11/19/23 12:30 Date of Discharge: November 20, 2023 Attending Provider at Admission: Roosevelt Caraballo MD Attending Provider at Discharge: Mahogany Stewart MD Primary Care Provider: Braxton Diamond MD Diagnoses at Discharge Discharge Diagnosis (1) Pneumothorax: Status: Inactive Qualifiers: Pneumothorax type: postprocedural Qualified Code(s): J95.811 - Postprocedural pneumothorax (2) Chronic obstructive pulmonary disease: Status: Acute Qualifiers: COPD type: emphysema Emphysema type: unspecified Qualified Code(s): J43.9 - Emphysema, unspecified (3) Leukocytosis: Status: Acute (4) 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 CT showed small to moderate left pneumothorax. He was on 2 L of nasal cannula while hospitalized. Was seen by CT surgery. Repeat x-ray was done next morning to reevaluate the pneumothorax. It did not show worsening or much improvement. Discussed again with CT surgery and Dr. Dent. Patient also had home oxygen evaluation and did not qualify for home oxygen. Plan to send him home with repeat chest x-ray in the next 2 to 3 days. If worsening he may need a chest tube at that point. Patient agreeable with above plan will be sent home in stable condition at this time. CT surgery also agreeable with the plan above. Physical Exam Const: COMMON NORMALS: patient oriented x3 HENMT: COMMON NORMALS: normocephalic, atraumatic, hearing grossly normal bilaterally, external ears normal and Normal external nose present HEAD & SCALP: normocephalic and atraumatic NOSE: Normal external nose present EXTERNAL EAR: Yes external ears normal Neck/C-Spine: OTHER: Prior modified right radical neck dissection Chest: OTHER: Left anterior subclavicular Port-A-Cath in position. No substantial simultaneous emphysema. Resp: COMMON NORMALS: normal respiratory effort, No retractions, No use of accessory muscles and clear to auscultation bilaterally AUSCULTATION: clear to auscultation bilaterally Cardio: COMMON NORMALS: regular rate, regular rhythm and S1 normal heart sound present RATE: regular rate RHYTHM: regular rhythm HEART SOUNDS: S1 normal heart sound present GI: COMMON NORMALS: Normal to inspection, nondistended, normoactive bowel sounds present Extremity: COMMON NORMALS: no clubbing, cyanosis or edema Neuro: COMMON NORMALS: patient oriented x3, moves all extremities, no focal motor deficits and no sensory deficits noted Discharge Data Studies Completed and Pending Completed Studies During Hospitalization Category Date Time Status CT head wo con* [id number] Stat Cat Scan 11/18/23 18:30 Completed CTA chest [CT angio chest PE protcl [id number]] Stat Cat Scan 11/18/23 18:30 Completed XR chest 1V portable [id number] Routine Exams 11/19/23 07:00 Completed XR chest 1V portable [id number] Routine Exams 11/20/23 07:00 Completed XR chest 1V portable [id number] Stat Exams 11/18/23 18:24 Completed Pending at discharge Category Date Time Status Blood Culture Stat Lab 11/18/23 20:36 Results Radiology Impressions Chest CTA 11/18/23 18:30 IMPRESSION: 1. Small to moderate sized left pneumothorax. 2. Unchanged right hilar mass measuring up to 3.7 cm. This mass/pardeep conglomerate extends into the subcarinal region, unchanged. 3. Unchanged appearance of multiple osseous metastatic lesions, including in the bilateral scapulae, multiple right ribs, and multiple vertebral bodies. 4. Gsqm-[id number]-iokgmvup bibasilar consolidative atelectasis. Basilar pulmonary metastases could potentially be obscured by the atelectasis. Overlying infectious etiology is not fully excluded. 5. The known right hilar mass applies mass effect upon a right subsegmental pulmonary artery, resulting in partial obstruction. The known right hilar mass applies significant mass effect upon the inferior left pulmonary vein. 6. No evidence of pulmonary artery thromboembolism. ADDENDUM: 11/18/232206 ADDENDUM: THIS REPORT CONTAINS FINDINGS THAT MAY BE CRITICAL TO PATIENT CARE. The findings were verbally communicated via telephone conference with Dr. Brock at 10:05 PM CDT on 11/18/2023. The findings were acknowledged and understood. Head CT 11/18/23 18:30 IMPRESSION: No acute intracranial abnormality. Moderate cerebral parenchymal atrophy and chronic microvascular parenchymal change. Further evaluation with MR as clinically warranted. Chest X-Ray 11/20/23 07:00 IMPRESSION: Interval complete atelectasis of the right lower lung. Increased atelectasis in the left lower lung with persistent left pneumothorax. Laboratory Results WBC 14.67 10^3/uL (3.29-11.43) H 11/20/23 04:27 RBC 3.92 10^6/uL (3.85-5.65) 11/20/23 04:27 Hgb 10.70 g/dL (11.27-16.99) L 11/20/23 04:27 Hct 33.7 % (37-53) L 11/20/23 04:27 MCV 86.0 fl (82-101) 11/20/23 04:27 MCH 27.3 pg (27-33) 11/20/23 04:27 MCHC 31.8 g/dL (30-55) 11/20/23 04:27 RDW 13.6 % (12.1-15.1) 11/20/23 04:27 Plt Count 144 10^3/cmm (157-399) L 11/20/23 04:27 MPV 10.8 fL (7.4-10.4) H 11/20/23 04:27 Neut % (Auto) 60.9 % 11/20/23 04:27 Lymph % (Auto) 33.1 % 11/20/23 04:27 R[place]con % (Auto) 5.0 % 11/20/23 04:27 Eos % (Auto) 0.1 % 11/20/23 04:27 Baso % (Auto) 0.2 % 11/20/23 04:27 Neut # (Auto) 8.93 10^3/uL (1.8-7.7) H 11/20/23 04:27 Lymph # (Auto) 4.9 10^3/uL (0.8-4.8) H 11/20/23 04:27 R[place]con # (Auto) 0.7 10^3/uL (0.2-0.9) 11/20/23 04:27 Eos # (Auto) 0.0 10^3/uL (0.0-0.8) 11/20/23 04:27 Baso # (Auto) 0.0 10^3/uL (0.0-0.1) 11/20/23 04:27 Nucleated RBC % (auto) 0 % 11/20/23 04:27 Nucleated RBCs # 0.0 /100WBC 11/20/23 04:27 PT 15.20 SECONDS (12.1-14.9) H 11/18/23 19:31 INR 1.16 (0.8-1.2) 11/18/23 19:31 Sodium 137 mmol/L (136-145) 11/20/23 04:27 Potassium 4.0 mmol/L (3.5-5.1) 11/20/23 04:27 Chloride 103 mmol/L (98-107) 11/20/23 04:27 Carbon Dioxide 25 mmol/L (22-29) 11/20/23 04:27 Anion Gap 13.0 (5-19) 11/20/23 04:27 BUN 9 mg/dL (8-23) 11/20/23 04:27 Creatinine 0.8 mg/dL (0.7-1.2) 11/20/23 04:27 GFR Calculation 97.6 mL/min (90-130) 11/20/23 04:27 Glucose 131 mg/dL (65-115) H 11/20/23 04:27 Calculated Osmolality 284 mOsm/kg (285-295) L 11/20/23 04:27 Lactic Acid 1.2 mmol/L (0.5-2.2) 11/18/23 19:31 Calcium 8.7 mg/dL (8.5-10.5) 11/20/23 04:27 Magnesium 2.0 mg/dL (1.7-2.3) 11/19/23 07:52 Total Bilirubin 0.2 mg/dL (0.15-1.2) 11/18/23 19:31 AST 10 U/L (0-40) 11/18/23 19:31 ALT < 5 U/L (0-41) 11/18/23 19:31 Alkaline Phosphatase 123 U/L (40-130) 11/18/23 19:31 Troponin T Baseline 76 ng/L (0-15) H 11/18/23 19:31 Troponin T 120 Minute 85.85 ng/L (0-15) H 11/18/23 21:17 Delta Troponin T 9.85 ABS# (0-10) 11/18/23 21:17 Troponin T Hi Sens 6Hr 83.71 ng/L (0-15) H 11/19/23 00:34 Troponin T Hi Sens 6Hr Delta 7.71 ng/L (0-12) 11/19/23 00:34 NT-Pro-B Natriuret Pep 848 pg/mL (0-125) H 11/18/23 19:31 Total Protein 4.7 g/dL (6.6-8.7) L 11/18/23 19:31 Albumin 2.9 g/dL (3.5-5.2) L 11/18/23 19:31 Globulin 1.8 g/dL (1.3-4.6) 11/18/23 19:31 Urine Color Yellow (Yellow) 11/18/23 21:00 Urine Appearance Clear (CLEAR) 11/18/23 21:00 Urine pH 6 (5-7) 11/18/23 21:00 Ur Specific [place] 1.020 (1.005-1.030) 11/18/23 21:00 Urine Protein Neg (Negative) 11/18/23 21:00 Urine Glucose (UA) Norm (Normal) 11/18/23 21:00 Urine Ketones Negative (Negative) 11/18/23 21:00 Urine Blood 2+ (Negative) H 11/18/23 21:00 Urine Nitrate Negative (Negative) 11/18/23 21:00 Urine Bilirubin Neg (Negative) 11/18/23 21:00 Urine Urobilinogen Neg mg/dL (Negative) 11/18/23 21:00 Ur Leukocyte Esterase Negative (Negative) 11/18/23 21:00 Urine RBC 0-4 /hpf (0-2) H 11/18/23 21:00 Urine WBC None /hpf (0-5) 11/18/23 21:00 Ur Squamous Epith Cells None /hpf (0-5) 11/18/23 21:00 Calcium Oxalate Crystal 5-10 /hpf H 11/18/23 21:00 Amorphous Sediment Not Reportable 11/18/23 21:00 Urine Bacteria Trace /hpf (NONE) 11/18/23 21:00 Urine Mucus 2+ /hpf 11/18/23 21:00 Vitals Last Vital Signs Temp 98.9 F 11/20/23 12:00 Pulse 58 L 11/20/23 12:00 Resp 18 11/20/23 12:00 BP 147/99 11/20/23 12:00 Pulse Ox 96 11/20/23 12:00 O2 Del Method Nasal Cannula 11/20/23 12:00 O2 Flow Rate 2 05/03/24 08:46 Discharge Plan Discharge Patient Disposition: Home Condition: Stable Prescriptions: New levofloxacin 750 mg tablet 750 mg PO DAILY 7 Days Qty: 7 0RF Continued sennosides [Natural Senna Laxative] 8.6 mg tablet 8.6 mg PO TID hydroxyzine HCl 10 mg tablet 10 mg PO TID PRN (Reason: Anxiety) pravastatin 40 mg tablet 40 mg PO DAILY morphine 100 mg tablet extended release 100 mg PO Q12H 30 Days Qty: 60 0RF Hold Instructions: Resume on 11/20/23. (DME) wheelchair See Rx Instructions .Route .MEDSUPPLY Qty: 1 0RF Rx Instructions: As directed morphine 15 mg tablet 15 mg PO Q6H PRN (Reason: pain) 30 Days Qty: 120 0RF Hold Instructions: Resume on 11/20/23. Breztri Aerosphere 160-9-4.8 mcg/actuation HFA aerosol inhaler 2 inh inhalation BID (DME) seated wheeled walker See Rx Instructions .Route .MEDSUPPLY Qty: 1 0RF Rx Instructions: As directed levothyroxine 88 mcg capsule 88 mcg PO DAILY Qty: 90 2RF dexamethasone 4 mg tablet 20 mg PO DIRECTED Qty: 40 3RF Rx Instructions: Take 5 tablets (20mg) 12 hours and 6 hours prior to Taxol Treatment famotidine 40 mg tablet 40 mg PO DAILY ondansetron 8 mg tablet,disintegrating 8 mg PO DAILY Rx Instructions: TAKE ONE TABLET BY MOUTH DAILY NEEDED FOR NAUSEA AND VOMITING; STOP TABLET PATIENT NEEDING ODT gabapentin 300 mg capsule 300 mg PO TID Imbruvica 280 mg tablet 280 mg PO DAILY Rx Instructions: TAKE ONE TABLET BY MOUTH DAILY. Take AT same time each DAY. Swallow whole with water. DO NOT CRUSH, CHEW, BREAK, DISSOLVE, CUT, OR OPEN metoclopramide HCl 10 mg tablet 10 mg PO TIDWM hydrocodone-acetaminophen 7.5-325 mg tablet 1 tab PO Q6H PRN (Reason: pain) Qty: 14 0RF docusate sodium [Colace] 100 mg capsule 100 mg PO BID Qty: 10 0RF prochlorperazine maleate [Compazine] 10 mg tablet 10 mg PO Q4H PRN (Reason: Mild Nausea) Qty: 30 3RF Serevent Diskus 50 mcg/dose blister with device 2 inh INHALATION BID Discharge Orders: Discharge Order (Routine); Ordered 11/20/23 Ordered By: Mahogany Stewart Referrals: Americo Dent MD [Physician] - 3 months (Your Dr. Dent appointment will be scheduled during your Candice White appointment. Thank you.) Candice White, KENDELL [Nurse Practitioner] - (Candice White's Office has your information and will be calling you to schedule a follow up appointment. You can call them if you have any questions or concerns. Thank you.) Braxton Diamond MD [Primary Care Provider] - 11/24/23 9:15 am (Your appointment will be with Dr. Solis. Dr. Diamond is out of town. Please keep this scheduled appointment. Thank you.) Discharge Diet: Cardiac Discharge Activity: Resume usual activity Patient Instructions: Levofloxacin (By mouth) (Levaquin, Levaquin Leva-aviva), Spontaneous Pneumothorax (DC), COPD (Chronic Obstructive Pulmonary Disease) (DC), Leukocytosis (DC), COPD Stoplight, Opioid Safety Discharge Attestations Time Spent in Discharge Care*: greater than 30 min Quality Metrics Clinical Quality Measures [ No reported AMI, CVA or VTE this stay] Coding Level of Care Code 63754 Total time (in minutes) for Discharge: 43 Diagnoses Postprocedural pneumothorax J95.811 Pneumothorax type: postprocedural Pulmonary emphysema, unspecified emphysema type J43.9 COPD type: emphysema Emphysema type: unspecified Leukocytosis D72.829 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
--- NOTE | 2023-11-20 14:21 | PC.NURSE ---
discharge instructions given and explained.pt and cg verb understanding of instructions.discharged via w/c to exit at this time.spouse to drive pt home
== END 2023-11-20 16:15 | disposition home or self-care (01) | DRG 200 ==
LOC: ER 18:33 → CSU 22:14
PROVIDERS: Admitting Provider Internal Medicine; Emergency Provider Emergency Medicine; PCP Family Medicine; Visit Provider Internal Medicine
DX: J95.811 Postprocedural pneumothorax (principal); C34.31 Malignant neoplasm of lower lobe, right bronchus or lung; C79.51 Secondary malignant neoplasm of bone; C91.10 Chronic lymphocytic leukemia of B-cell type not having achieved remission; N17.9 Acute kidney failure, unspecified; Z87.891 Personal history of nicotine dependence; J43.9 Emphysema, unspecified; Z85.89 Personal history of malignant neoplasm of other organs and systems; D64.9 Anemia, unspecified; G89.3 Neoplasm related pain (acute) (chronic); Z95.828 Presence of other vascular implants and grafts; Z98.890 Other specified postprocedural states
CPT/HCPCS: 36415; 70450; 71045; 71275; 80048; 80053; 81001; 81015; 83605; 83735; 83880; 84484; 85025; 85610; 87040; 93005; 94640; 94760; 96372; G0378; J1644; J1956; J7030; J7626; Q9967

== ENCOUNTER 2023-11-23 07:07 | Outpatient (CLI) | payer MEDICAID, SELFPAY ==
--- NOTE | 2023-11-23 08:25 | XR_ITS ---
WS: [id number] CHEST XRAY TECHNIQUE: Portable chest. CLINICAL INFORMATION: f/u pneumothorax COMPARISON: 11/20/2023 FINDINGS: Heart: Normal cardiac silhouette. LEFT Port-A-Cath with tip in the SVC. Lungs: Stable small persistent LEFT hydropneumothorax. Atelectasis RIGHT lower lobe with small RIGHT pleural effusion. Bones: Hypertrophic changes thoracic spine. Mild thoracic curve. XR/XR chest 1V [id number] IMPRESSION: 1. Stable small persistent LEFT hydropneumothorax. 2. Stable atelectasis RIGHT lower lobe with a small RIGHT pleural effusion. 3. No other interval changes.
== END 2023-11-23 07:08 | disposition home or self-care (01) ==
LOC: RAD 07:08
PROVIDERS: PCP Family Medicine; Visit Provider Family Medicine
DX: J93.9 Pneumothorax, unspecified (principal); J98.11 Atelectasis
CPT/HCPCS: 71045

== ENCOUNTER 2023-11-30 08:15 | Oncology outpatient (recurring) (ONCR) | payer MEDICAID, SELFPAY ==
--- NOTE | 2023-11-23 07:15 | MR_ITS ---
WS: [id number] MRI HEAD WITH CONTRAST TECHNIQUE: Sagittal T1, T2 axial, T2 axial FLAIR, axial susceptibility weighted imaging, axial diffus ion weighted images, and coronal T2 images were obtained. Pre and post-T1 axial and post T1 coronal i mages. ADC and FSPGR images. CLINICAL INFORMATION: squamous cell carcinoma COMPARISON: CT 11/18/2023 FINDINGS: No evidence of enhancing intracranial metastatic disease. Normal dural venous sinuses. No evidence of mass or mass effect. No evidence of restricted diffusion to suggest acute ischemia. Ventricular system and basal cisterns are patent. No hemosiderin on susceptibility-weighted images. Mild small vessel changes. Moderate par enchymal volume loss. Normal posterior fossa. Normal vascular flow voids at the skull base. No extra- axial fluid collections. Paranasal sinuses and mastoid air cells are well aerated. Normal optic chiasm and pituitary infundibu lum. Enhancing lesions in the RIGHT parietal and LEFT parietal calvarium near the vertex. Small amount of dural enhancement deep to the RIGHT parietal lesion. Bony metastatic disease not excluded. MR/MR head wo/w con [id number] IMPRESSION: 1. No evidence of enhancing intracranial metastatic disease. 2. Enhancing lesions in the RIGHT parietal and LEFT parietal calvarium near th e vertex. Small amount of underlying dural enhancement corresponding to the RIG HT parietal lesion. These are nonspecific but metastatic disease not excluded. This can be followed up with head CT. 3. No evidence of restricted diffusion to suggest acute ischemia. 4. Mild small vessel changes with moderate parenchymal volume loss. 5. No hemosiderin on the susceptibly weighted images.
[2023-11-23] MEDS: gadobenate dimeglumine 20 mL vial IV (07:47)
--- NOTE | 2023-11-23 11:52 | ONCRAD EPV_ITS ---
Radiation Oncology Established Patient Visit Patient: Apolinar Nix [id number] : 1960 Age: 63 Sex: Male Dictated by: Josh Martínez Date of Service: 11/23/2023 Referring Physician(s) : Aman Ochoa M.D. 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 Radiation treatment summarized above completed 09/2012. CLL stable under systemic treatment with Imbruvica. 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 Awaiting biopsy confirmation. Currently modestly active at home and easily fatigued. 15 pound weight last since 02/2024 despite good appetite. Left hip and groin pain x 2 months progressive now 6 on 10 scale can be 9 on 10 scale. On MSContin and now adding MS04 for breakthrough pain. CT chest reviewed: right hilar mass extending into subcarinal region.T10 sclerotic lytic vert body lesion, left ant acetabular soft tissue mass with bone erosion into ischium. The patient tolerated RT well. After the 5th treatment he had yet to experience any relief. He had no side effects Radiotherapy to Date: Course: LT Hip 2023, Treatment Site: LT Hip 20Gy, Ref. ID: [id number], Energy: 15X, Dose/Fx (cGy): 400, #Fx: 5 / 5, Dose Correction (cGy): 0, Total Dose Delivered (cGy): 2,000, Start Date: 10/08/2023, End Date: 10/14/2023, Elapsed Days: 6 Current History: Hip pain is much improved from 9-10 to 4 on 10 scale. Also on 100 mg MS04 ER 2 x day and 15 mg MS04 for breakthrough pain. Recently hospitalized for spontaneous pneumothorax that was treated conservatively without chest tube. He had port placed for plan for chemotherapy. He just had an MRI of head and neck region and CXR today. Current Medications: Albuterol, famotidine, famotidine, fentaNYL, gabapentin, gabapentin, hydrOXYzine HCl, ibrutinib, imbruvica, levothyroxine Sodium, levothyroxine Sodium, lunesta, magnesium Sulfate, mannitol, marinol, marinol, metoclopramide HCl, metoclopramide HCl, mirtazapine, morphine Sulfate, morphine Sulfate ER, morphine Sulfate ER, ondansetron, potassium Chloride, pravastatin Sodium, ranitidine HCl, senna, symbicort, zofran ODT. Allergies: No Known Allergies Current Complaints / Review of Systems: . Vital Signs: Performed on 11/23/2023 10:22 AM BMI - 18.129 kg/m2 (low), Height - 74 in, Weight - 141.2 lbs, Temperature - 97.3 f, Pulse - 89 /min, Respiration - 16 /min, O2 Sat - 97 %, Pain - 0, Fatigue - 2 and BP - 114/ 75 mm(hg). Performance Status: 1 Lab: None pending. 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 Imaging: See HPI Impression: Good tolerance and response to palliative radiation to hip. Med Onc FU will occur at which time continuation or modification of chemo will be considered. FU here only if additional palliative treatment is needed in the future. Signed by: 11/23/2023 11:51:17 AM <<Signature on File>> Time spent with patient: CPT Code: CPT Code:
[2023-11-30 08:31] LABS: Hematocrit 37.5 % (37-53); Mean Corpuscular HGB Conc 31.2 g/dL (30-55); Mean Corpuscular Volume 86.6 fl (82-101); Mean Platelet Volume 10.7 fL (7.4-10.4); Platelet Count 200 10^3/cmm (157-399); Red Blood Count 4.33 10^6/uL (3.85-5.65); Red Cell Distribution Width 14.7 % (12.1-15.1)
[2023-11-30 09:03] LABS: Alanine Aminotransferase 11 U/L (0-41); Albumin Level 3.4 g/dL (3.5-5.2); Alkaline Phosphatase 168 U/L (40-130); Anion Gap 16.2 (5-19); Aspartate Amino Transferase 13 U/L (0-40); Blood Urea Nitrogen 24 mg/dL (8-23); Calcium 9.6 mg/dL (8.5-10.5); Carbon Dioxide 24 mmol/L (22-29); Chloride 99 mmol/L (98-107); Creatinine Clr Calc Pharmacy 64.3844; Globulin 3.2 g/dL (1.3-4.6); Glomerular Filtration Rate 67.6 mL/min (90-130); Glucose 217 mg/dL (65-115); Osmolality Calculated 291 mOsm/kg (285-295); Potassium 4.2 mmol/L (3.5-5.1); Sodium 135 mmol/L (136-145); Thyroid Stimulating Hormone 1.79 uIU/mL (0.27-4.20); Total Bilirubin 0.4 mg/dL (0.15-1.2); Total Protein 6.6 g/dL (6.6-8.7)
[2023-11-30 09:27] LABS: Absolute Neutrophil 10.9 10^3/cmm (1.4-6.5); Absolute Segmented Neutrophil 10.9 10/cmm (1.6-7.1); Eosinophils 0 %; Lymphocytes 66 %; Lymphocytes Absolute 21.3 10^3/cmm (1.2-3.4); Platelet Estimate Normal (Normal); Segmented Neutrophils 34 %; Slide Review Slide Review Perform; Total Cells Counted 100 (0-100)
[2023-11-30] MEDS: sodium chloride 0.9% 250 ML 75 ML IV (11:27)
[2023-11-30] MEDS: diphenhydrAMINE 50 mg/mL SDV 1mL 25 MG IVP (11:28)
[2023-11-30] MEDS: famotidine 20 mg/2 mL INJ IVP (11:31)
[2023-11-30] MEDS: OLANZapine 5 mg TABLET PO (11:32)
[2023-11-30] MEDS: palonosetron 0.25 mg/5 mL SDV IVP (11:34)
[2023-11-30] MEDS: fosaprepitant 150 MG in sodium chloride 0.9% 150 ML 300 MG IV (11:51)
[2023-11-30] MEDS: pembrolizumab 200 MG in sodium chloride 0.9% 250 ML 516 MG IV (12:21)
[2023-11-30] MEDS: [UNRECOGNIZED DRUG - REMARK] 187.219999999999999 MG IV (12:54)
[2023-11-30] MEDS: CARBOplatin 510 MG in sodium chloride 0.9% 500 ML 551 MG IV (15:52)
[2023-11-30 16:35] VITALS: BP 131/77; PULSE 74; RESP 16; TEMP 36.7; O2SAT 93
== END 2023-11-30 23:59 | disposition home or self-care (01) ==
PROVIDERS: Nurse Practitioner Family; PCP Family Medicine; Visit Provider Internal Medicine
DX: C34.31 Malignant neoplasm of lower lobe, right bronchus or lung (principal); Z53.9 Procedure and treatment not carried out, unspecified reason; Z51.12 Encounter for antineoplastic immunotherapy; C91.10 Chronic lymphocytic leukemia of B-cell type not having achieved remission; C79.51 Secondary malignant neoplasm of bone; Z85.818 Personal history of malignant neoplasm of other sites of lip, oral cavity, and pharynx; Z87.891 Personal history of nicotine dependence; Z79.52 Long term (current) use of systemic steroids; Z79.899 Other long term (current) drug therapy; Z79.69 Long term (current) use of other immunomodulators and immunosuppressants
CPT/HCPCS: 70553; 80053; 84443; 85007; 85025; 96367; 96368; 96375; 96413; 96415; 96417; 99215; A4222; A9577; J1100; J1200; J1453; J2469; J3490; J7030; J7040; J7050; J9045; J9267; J9271

== ENCOUNTER 2023-12-15 12:46 | Oncology outpatient (recurring) (ONCR) | payer MEDICAID, SELFPAY ==
[2023-12-04] MEDS: sodium chloride 0.9% 1,000 ML 999 ML IV (10:25)
[2023-12-04 11:55] VITALS: BP 143/84; PULSE 71; RESP 16; TEMP 36.6; O2SAT 97
[2023-12-07 11:23] LABS: Basophils # 0.1 10^3/uL (0.0-0.1); Basophils % 0.3 %; Eosinophils # 0.1 10^3/uL (0.0-0.8); Eosinophils % 0.6 %; Hematocrit 30.9 % (37-53); Lymphocytes # 14.2 10^3/uL (0.8-4.8); Mean Corpuscular HGB Conc 31.7 g/dL (30-55); Mean Corpuscular Hemoglobin 27.1 pg (27-33); Mean Corpuscular Volume 85.4 fl (82-101); Mean Platelet Volume 11.2 fL (7.4-10.4); Monocytes # 0.3 10^3/uL (0.2-0.9); Monocytes % 1.6 %; Neutrophils # 3.49 10^3/uL (1.8-7.7); Neutrophils % 19.2 %; Nucleated Red Blood Cells % 0 %; Platelet Count 110 10^3/cmm (157-399); Red Blood Count 3.62 10^6/uL (3.85-5.65); Red Cell Distribution Width 14.8 % (12.1-15.1); White Blood Count 18.22 10^3/uL (3.29-11.43)
[2023-12-07 11:35] LABS: Alanine Aminotransferase 17 U/L (0-41); Albumin Level 3.1 g/dL (3.5-5.2); Alkaline Phosphatase 147 U/L (40-130); Aspartate Amino Transferase 29 U/L (0-40); Blood Urea Nitrogen 26 mg/dL (8-23); Calcium 8.6 mg/dL (8.5-10.5); Carbon Dioxide 24 mmol/L (22-29); Chloride 100 mmol/L (98-107); Globulin 2.7 g/dL (1.3-4.6); Glomerular Filtration Rate 97.6 mL/min (90-130); Glucose 115 mg/dL (65-115); Osmolality Calculated 286 mOsm/kg (285-295); Sodium 135 mmol/L (136-145); Total Bilirubin 0.7 mg/dL (0.15-1.2); Total Protein 5.8 g/dL (6.6-8.7)
[2023-12-15 13:25] LABS: Hematocrit 27.2 % (37-53); Mean Corpuscular HGB Conc 31.3 g/dL (30-55); Mean Corpuscular Hemoglobin 27.2 pg (27-33); Mean Corpuscular Volume 86.9 fl (82-101); Mean Platelet Volume 10.3 fL (7.4-10.4); Platelet Count 112 10^3/cmm (157-399); Red Blood Count 3.13 10^6/uL (3.85-5.65); Red Cell Distribution Width 15.5 % (12.1-15.1); White Blood Count 8.27 10^3/uL (3.29-11.43)
[2023-12-15 13:46] LABS: Alanine Aminotransferase 27 U/L (0-41); Albumin Level 2.9 g/dL (3.5-5.2); Alkaline Phosphatase 251 U/L (40-130); Anion Gap 13.7 (5-19); Aspartate Amino Transferase 19 U/L (0-40); Blood Urea Nitrogen 14 mg/dL (8-23); Calcium 8.1 mg/dL (8.5-10.5); Carbon Dioxide 27 mmol/L (22-29); Chloride 102 mmol/L (98-107); Globulin 2.4 g/dL (1.3-4.6); Glomerular Filtration Rate 97.6 mL/min (90-130); Glucose 103 mg/dL (65-115); Osmolality Calculated 289 mOsm/kg (285-295); Potassium 3.7 mmol/L (3.5-5.1); Sodium 139 mmol/L (136-145); Total Bilirubin 0.4 mg/dL (0.15-1.2); Total Protein 5.3 g/dL (6.6-8.7)
[2023-12-15 14:23] LABS: Slide Review Slide Review Perform
[2023-12-15 14:24] LABS: Absolute Eosinophils 0.1 10^3/cmm (0.0-0.7); Absolute Neutrophil 3.9 10^3/cmm (1.4-6.5); Absolute Segmented Neutrophil 3.9 10/cmm (1.6-7.1); Eosinophils 1 %; Lymphocytes 36 %; Lymphocytes Absolute 4.1 10^3/cmm (1.2-3.4); Platelet Estimate Decreased (Normal); Segmented Neutrophils 47 %; Total Cells Counted 100 (0-100)
== END 2023-12-18 23:59 | disposition home or self-care (01) ==
PROVIDERS: Nurse Practitioner Family; PCP Family Medicine; Visit Provider Internal Medicine
DX: C34.31 Malignant neoplasm of lower lobe, right bronchus or lung (principal); Z53.9 Procedure and treatment not carried out, unspecified reason; Z87.891 Personal history of nicotine dependence; C79.51 Secondary malignant neoplasm of bone; Z92.3 Personal history of irradiation; G89.3 Neoplasm related pain (acute) (chronic); C91.10 Chronic lymphocytic leukemia of B-cell type not having achieved remission; Z79.891 Long term (current) use of opiate analgesic; D64.9 Anemia, unspecified; E83.51 Hypocalcemia; Z79.899 Other long term (current) drug therapy
CPT/HCPCS: 36591; 80053; 85007; 85025; 96360; 96361; 99214; J7030

== ENCOUNTER 2023-12-21 07:20 | Oncology outpatient (recurring) (ONCR) | payer MEDICAID, SELFPAY ==
[2023-12-21 07:53] LABS: Basophils % 0.1 %; Hematocrit 31.2 % (37-53); Lymphocytes # 7.4 10^3/uL (0.8-4.8); Lymphocytes % 50.3 %; Mean Corpuscular HGB Conc 30.4 g/dL (30-55); Mean Corpuscular Hemoglobin 26.9 pg (27-33); Mean Corpuscular Volume 88.4 fl (82-101); Mean Platelet Volume 10.9 fL (7.4-10.4); Monocytes # 0.1 10^3/uL (0.2-0.9); Neutrophils % 46.9 %; Nucleated Red Blood Cells % 0 %; Platelet Count 241 10^3/cmm (157-399); Red Blood Count 3.53 10^6/uL (3.85-5.65); Red Cell Distribution Width 17.2 % (12.1-15.1); White Blood Count 14.71 10^3/uL (3.29-11.43)
[2023-12-21 08:17] LABS: Slide Review Slide Review Perform
[2023-12-21 08:25] LABS: Alanine Aminotransferase 21 U/L (0-41); Albumin Level 3.1 g/dL (3.5-5.2); Alkaline Phosphatase 253 U/L (40-130); Anion Gap 18.7 (5-19); Aspartate Amino Transferase 15 U/L (0-40); Blood Urea Nitrogen 18 mg/dL (8-23); Calcium 8.7 mg/dL (8.5-10.5); Carbon Dioxide 22 mmol/L (22-29); Chloride 102 mmol/L (98-107); Globulin 3.3 g/dL (1.3-4.6); Glomerular Filtration Rate 85.2 mL/min (90-130); Glucose 263 mg/dL (65-115); Osmolality Calculated 297 mOsm/kg (285-295); Potassium 4.7 mmol/L (3.5-5.1); Sodium 138 mmol/L (136-145); Thyroid Stimulating Hormone 1.78 uIU/mL (0.27-4.20); Total Bilirubin 0.3 mg/dL (0.15-1.2); Total Protein 6.4 g/dL (6.6-8.7)
[2023-12-21] MEDS: pembrolizumab 200 MG in sodium chloride 0.9% 250 ML 516 MG IV (09:55)
[2023-12-21 11:00] VITALS: BP 123/74; PULSE 74; RESP 18; TEMP 36.3; O2SAT 94
== END 2023-12-21 23:59 | disposition home or self-care (01) ==
PROVIDERS: Nurse Practitioner Family; PCP Family Medicine; Visit Provider Internal Medicine
DX: C34.31 Malignant neoplasm of lower lobe, right bronchus or lung (principal); Z87.891 Personal history of nicotine dependence; C79.51 Secondary malignant neoplasm of bone; Z92.3 Personal history of irradiation; G89.3 Neoplasm related pain (acute) (chronic); C91.10 Chronic lymphocytic leukemia of B-cell type not having achieved remission; Z79.891 Long term (current) use of opiate analgesic; D64.9 Anemia, unspecified; E83.51 Hypocalcemia; Z79.899 Other long term (current) drug therapy; J93.9 Pneumothorax, unspecified; Z95.828 Presence of other vascular implants and grafts; Z51.12 Encounter for antineoplastic immunotherapy
CPT/HCPCS: 80053; 84443; 85025; 96413; 99214; A4222; J7050; J9271

== ENCOUNTER → 2023-12-28 08:18 | Outpatient (BNVA) | payer MEDICAID, SELFPAY | PROVIDERS: PCP Family Medicine; Visit Provider Thoracic Surgery (Cardiothoracic Vascular Surgery) | DX: J93.9 Pneumothorax, unspecified (principal); Z87.891 Personal history of nicotine dependence; J90 Pleural effusion, not elsewhere classified | CPT/HCPCS: 71045; 99213 ==

== ENCOUNTER 2024-01-11 07:22 | Oncology outpatient (recurring) (ONCR) | payer MEDICAID, SELFPAY ==
[2024-01-11 08:00] LABS: Basophils # 0.1 10^3/uL (0.0-0.1); Basophils % 0.3 %; Eosinophils # 0.3 10^3/uL (0.0-0.8); Eosinophils % 1.8 %; Hematocrit 33.3 % (37-53); Lymphocytes # 4.2 10^3/uL (0.8-4.8); Lymphocytes % 28.9 %; Mean Corpuscular HGB Conc 30.3 g/dL (30-55); Mean Corpuscular Hemoglobin 27.8 pg (27-33); Mean Corpuscular Volume 91.7 fl (82-101); Mean Platelet Volume 10.8 fL (7.4-10.4); Monocytes # 0.7 10^3/uL (0.2-0.9); Neutrophils # 9.08 10^3/uL (1.8-7.7); Neutrophils % 62.8 %; Nucleated Red Blood Cells % 0 %; Platelet Count 186 10^3/cmm (157-399); Red Blood Count 3.63 10^6/uL (3.85-5.65); Red Cell Distribution Width 18.9 % (12.1-15.1); White Blood Count 14.48 10^3/uL (3.29-11.43)
[2024-01-11 08:20] LABS: Alanine Aminotransferase 11 U/L (0-41); Albumin Level 3.1 g/dL (3.5-5.2); Alkaline Phosphatase 175 U/L (40-130); Anion Gap 15.9 (5-19); Aspartate Amino Transferase 13 U/L (0-40); Blood Urea Nitrogen 18 mg/dL (8-23); Calcium 8.6 mg/dL (8.5-10.5); Carbon Dioxide 24 mmol/L (22-29); Chloride 102 mmol/L (98-107); Globulin 2.9 g/dL (1.3-4.6); Glomerular Filtration Rate 97.6 mL/min (90-130); Glucose 173 mg/dL (65-115); Osmolality Calculated 292 mOsm/kg (285-295); Potassium 3.9 mmol/L (3.5-5.1); Sodium 138 mmol/L (136-145); Thyroid Stimulating Hormone 2.74 uIU/mL (0.27-4.20); Total Bilirubin 0.4 mg/dL (0.15-1.2)
== END 2024-01-17 23:59 | disposition home or self-care (01) ==
PROVIDERS: Internal Medicine Medical Oncology; PCP Family Medicine; Visit Provider Internal Medicine
DX: C34.31 Malignant neoplasm of lower lobe, right bronchus or lung (principal); Z87.891 Personal history of nicotine dependence; C79.51 Secondary malignant neoplasm of bone; Z92.3 Personal history of irradiation; L27.1 Localized skin eruption due to drugs and medicaments taken internally; T45.1X5A Adverse effect of antineoplastic and immunosuppressive drugs, initial encounter; Z95.828 Presence of other vascular implants and grafts; Z79.52 Long term (current) use of systemic steroids
CPT/HCPCS: 80053; 84443; 85025; 99214

== ENCOUNTER 2024-01-18 08:07 | Oncology outpatient (recurring) (ONCR) | payer MEDICAID, SELFPAY ==
[2024-01-18 08:49] LABS: Basophils # 0.1 10^3/uL (0.0-0.1); Basophils % 0.4 %; Eosinophils # 0.2 10^3/uL (0.0-0.8); Eosinophils % 0.7 %; Hematocrit 34.3 % (37-53); Lymphocytes # 12.7 10^3/uL (0.8-4.8); Lymphocytes % 41.3 %; Mean Corpuscular HGB Conc 30.3 g/dL (30-55); Mean Corpuscular Volume 92.5 fl (82-101); Mean Platelet Volume 9.8 fL (7.4-10.4); Monocytes # 0.8 10^3/uL (0.2-0.9); Monocytes % 2.4 %; Neutrophils % 52.2 %; Nucleated Red Blood Cells % 0 %; Platelet Count 235 10^3/cmm (157-399); Red Blood Count 3.71 10^6/uL (3.85-5.65); Red Cell Distribution Width 18.6 % (12.1-15.1)
[2024-01-18 08:57] LABS: White Blood Count 30.86 10^3/uL (3.29-11.43)
[2024-01-18 09:05] LABS: Alanine Aminotransferase 16 U/L (0-41); Albumin Level 3.3 g/dL (3.5-5.2); Alkaline Phosphatase 134 U/L (40-130); Anion Gap 13.1 (5-19); Aspartate Amino Transferase 12 U/L (0-40); Blood Urea Nitrogen 23 mg/dL (8-23); Calcium 8.3 mg/dL (8.5-10.5); Carbon Dioxide 27 mmol/L (22-29); Chloride 104 mmol/L (98-107); Globulin 2.5 g/dL (1.3-4.6); Glomerular Filtration Rate 136.1 mL/min (90-130); Glucose 83 mg/dL (65-115); Osmolality Calculated 293 mOsm/kg (285-295); Potassium 4.1 mmol/L (3.5-5.1); Sodium 140 mmol/L (136-145); Total Bilirubin 0.3 mg/dL (0.15-1.2); Total Protein 5.8 g/dL (6.6-8.7)
[2024-01-18] MEDS: pembrolizumab 200 MG in sodium chloride 0.9% 250 ML 516 MG IV (10:02)
[2024-01-18 10:43] VITALS: BP 143/82; PULSE 66; RESP 16; TEMP 36.8; O2SAT 98
== END 2024-01-18 23:59 | disposition home or self-care (01) ==
PROVIDERS: Internal Medicine Medical Oncology; PCP Family Medicine; Visit Provider Internal Medicine
DX: C34.31 Malignant neoplasm of lower lobe, right bronchus or lung (principal); Z51.12 Encounter for antineoplastic immunotherapy
CPT/HCPCS: 80053; 85025; 96413; A4222; J7050; J9271

== ENCOUNTER 2024-02-11 07:17 | Oncology outpatient (recurring) (ONCR) | payer MEDICAID, SELFPAY ==
[2024-02-11 07:59] LABS: Basophils % 0.3 %; Eosinophils % 0.2 %; Hematocrit 32.2 % (37-53); Lymphocytes # 3.2 10^3/uL (0.8-4.8); Lymphocytes % 24.4 %; Mean Corpuscular HGB Conc 30.1 g/dL (30-55); Mean Corpuscular Hemoglobin 27.1 pg (27-33); Mean Corpuscular Volume 89.9 fl (82-101); Mean Platelet Volume 10.4 fL (7.4-10.4); Monocytes # 0.6 10^3/uL (0.2-0.9); Monocytes % 4.6 %; Neutrophils # 8.86 10^3/uL (1.8-7.7); Neutrophils % 68.5 %; Nucleated Red Blood Cells % 0 %; Platelet Count 202 10^3/cmm (157-399); Red Blood Count 3.58 10^6/uL (3.85-5.65); Red Cell Distribution Width 16.9 % (12.1-15.1); White Blood Count 12.92 10^3/uL (3.29-11.43)
[2024-02-11 08:42] LABS: Alanine Aminotransferase 8 U/L (0-41); Albumin Level 3.3 g/dL (3.5-5.2); Alkaline Phosphatase 146 U/L (40-130); Anion Gap 17.5 (5-19); Aspartate Amino Transferase 11 U/L (0-40); Blood Urea Nitrogen 17 mg/dL (8-23); Calcium 8.5 mg/dL (8.5-10.5); Carbon Dioxide 23 mmol/L (22-29); Chloride 102 mmol/L (98-107); Creatinine Clr Calc Pharmacy 68.9457; Globulin 3.1 g/dL (1.3-4.6); Glomerular Filtration Rate 75.2 mL/min (90-130); Glucose 122 mg/dL (65-115); Osmolality Calculated 289 mOsm/kg (285-295); Potassium 4.5 mmol/L (3.5-5.1); Sodium 138 mmol/L (136-145); Thyroid Stimulating Hormone 2.22 uIU/mL (0.27-4.20); Total Bilirubin 0.2 mg/dL (0.15-1.2); Total Protein 6.4 g/dL (6.6-8.7)
[2024-02-11] MEDS: denosumab 120 mg SDV SUBCUT (09:09)
[2024-02-11] MEDS: pembrolizumab 200 MG in sodium chloride 0.9% 250 ML 516 MG IV (09:14)
[2024-02-11 09:50] VITALS: BP 106/68; PULSE 78; RESP 18; TEMP 36.6; O2SAT 97
== END 2024-02-11 23:59 | disposition home or self-care (01) ==
PROVIDERS: PCP Family Medicine; Visit Provider Internal Medicine Medical Oncology
DX: C34.31 Malignant neoplasm of lower lobe, right bronchus or lung (principal); Z87.891 Personal history of nicotine dependence; C79.51 Secondary malignant neoplasm of bone; Z92.3 Personal history of irradiation; Z79.899 Other long term (current) drug therapy; Z95.828 Presence of other vascular implants and grafts; Z51.12 Encounter for antineoplastic immunotherapy
CPT/HCPCS: 80053; 84443; 85025; 96401; 96413; 99214; A4222; J0897; J7050; J9271

== ENCOUNTER 2024-03-03 07:07 | Oncology outpatient (recurring) (ONCR) | payer MEDICAID, SELFPAY ==
[2024-03-03 07:45] LABS: Basophils # 0.1 10^3/uL (0.0-0.1); Basophils % 0.6 %; Eosinophils # 0.2 10^3/uL (0.0-0.8); Eosinophils % 1.3 %; Hematocrit 37.6 % (37-53); Lymphocytes # 3.9 10^3/uL (0.8-4.8); Lymphocytes % 30.5 %; Mean Corpuscular HGB Conc 29.5 g/dL (30-55); Mean Corpuscular Hemoglobin 26.4 pg (27-33); Mean Corpuscular Volume 89.5 fl (82-101); Mean Platelet Volume 10.2 fL (7.4-10.4); Monocytes # 0.5 10^3/uL (0.2-0.9); Neutrophils # 7.88 10^3/uL (1.8-7.7); Neutrophils % 62.3 %; Nucleated Red Blood Cells % 0 %; Platelet Count 194 10^3/cmm (157-399); Red Cell Distribution Width 16.2 % (12.1-15.1); White Blood Count 12.64 10^3/uL (3.29-11.43)
[2024-03-03 08:11] LABS: Alanine Aminotransferase 8 U/L (0-41); Albumin Level 3.6 g/dL (3.5-5.2); Alkaline Phosphatase 125 U/L (40-130); Aspartate Amino Transferase 14 U/L (0-40); Blood Urea Nitrogen 16 mg/dL (8-23); Calcium 8.3 mg/dL (8.5-10.5); Carbon Dioxide 23 mmol/L (22-29); Chloride 106 mmol/L (98-107); Glomerular Filtration Rate 97.3 mL/min (90-130); Glucose 129 mg/dL (65-115); Osmolality Calculated 297 mOsm/kg (285-295); Sodium 142 mmol/L (136-145); Thyroid Stimulating Hormone 3.37 uIU/mL (0.27-4.20); Total Bilirubin 0.3 mg/dL (0.15-1.2); Total Protein 6.6 g/dL (6.6-8.7)
[2024-03-03 08:15] LABS: Anion Gap 17.3 (5-19); Potassium 4.3 mmol/L (3.5-5.1)
[2024-03-03] MEDS: pembrolizumab 200 MG in sodium chloride 0.9% 250 ML 516 MG IV (09:31)
[2024-03-03 10:22] VITALS: BP 127/77; PULSE 76; RESP 16; TEMP 36.4; O2SAT 98
== END 2024-03-03 23:59 | disposition home or self-care (01) ==
PROVIDERS: Nurse Practitioner Family; PCP Family Medicine; Visit Provider Internal Medicine Medical Oncology
DX: C34.31 Malignant neoplasm of lower lobe, right bronchus or lung (principal); Z87.891 Personal history of nicotine dependence; C79.51 Secondary malignant neoplasm of bone; Z92.3 Personal history of irradiation; Z79.891 Long term (current) use of opiate analgesic; Z79.899 Other long term (current) drug therapy; Z95.828 Presence of other vascular implants and grafts; Z51.12 Encounter for antineoplastic immunotherapy; L27.1 Localized skin eruption due to drugs and medicaments taken internally; T45.1X5A Adverse effect of antineoplastic and immunosuppressive drugs, initial encounter; Z79.52 Long term (current) use of systemic steroids
CPT/HCPCS: 80053; 84443; 85025; 96413; 99214; A4222; J7050; J9271

== ENCOUNTER 2024-03-24 07:17 | Oncology outpatient (recurring) (ONCR) | payer MEDICAID, SELFPAY ==
[2024-03-24 07:48] LABS: Basophils # 0.1 10^3/uL (0.0-0.1); Basophils % 0.5 %; Eosinophils # 0.1 10^3/uL (0.0-0.8); Eosinophils % 0.6 %; Hematocrit 37.4 % (37-53); Lymphocytes # 3.7 10^3/uL (0.8-4.8); Lymphocytes % 32.2 %; Mean Corpuscular HGB Conc 30.2 g/dL (30-55); Mean Corpuscular Hemoglobin 25.8 pg (27-33); Mean Corpuscular Volume 85.4 fl (82-101); Mean Platelet Volume 10.3 fL (7.4-10.4); Monocytes # 0.8 10^3/uL (0.2-0.9); Monocytes % 6.9 %; Neutrophils # 6.67 10^3/uL (1.8-7.7); Neutrophils % 58.8 %; Nucleated Red Blood Cells % 0 %; Platelet Count 192 10^3/cmm (157-399); Red Blood Count 4.38 10^6/uL (3.85-5.65); Red Cell Distribution Width 15.8 % (12.1-15.1); White Blood Count 11.34 10^3/uL (3.29-11.43)
[2024-03-24 08:16] LABS: Alanine Aminotransferase 6 U/L (0-41); Albumin Level 3.6 g/dL (3.5-5.2); Alkaline Phosphatase 120 U/L (40-130); Anion Gap 15.4 (5-19); Aspartate Amino Transferase 13 U/L (0-40); Blood Urea Nitrogen 16 mg/dL (8-23); Calcium 8.4 mg/dL (8.5-10.5); Carbon Dioxide 26 mmol/L (22-29); Chloride 104 mmol/L (98-107); Creatinine Clr Calc Pharmacy 88.5769; Globulin 3.2 g/dL (1.3-4.6); Glomerular Filtration Rate 97.3 mL/min (90-130); Glucose 130 mg/dL (65-115); Osmolality Calculated 295 mOsm/kg (285-295); Potassium 4.4 mmol/L (3.5-5.1); Sodium 141 mmol/L (136-145); Thyroid Stimulating Hormone 3.89 uIU/mL (0.27-4.20); Total Bilirubin 0.4 mg/dL (0.15-1.2); Total Protein 6.8 g/dL (6.6-8.7)
[2024-03-24] MEDS: pembrolizumab 200 MG in sodium chloride 0.9% 250 ML 516 MG IV (09:32)
[2024-03-24] MEDS: denosumab 120 mg SDV SUBCUT (09:37)
[2024-03-24 10:14] VITALS: BP 159/90; PULSE 74; TEMP 37.1; O2SAT 93
== END 2024-03-24 23:59 | disposition home or self-care (01) ==
PROVIDERS: Nurse Practitioner Family; PCP Family Medicine; Visit Provider Internal Medicine Medical Oncology
DX: C34.31 Malignant neoplasm of lower lobe, right bronchus or lung (principal); Z87.891 Personal history of nicotine dependence; C79.51 Secondary malignant neoplasm of bone; Z92.3 Personal history of irradiation; G89.3 Neoplasm related pain (acute) (chronic); C91.10 Chronic lymphocytic leukemia of B-cell type not having achieved remission; Z79.891 Long term (current) use of opiate analgesic; D64.9 Anemia, unspecified; Z79.899 Other long term (current) drug therapy; Z51.12 Encounter for antineoplastic immunotherapy
CPT/HCPCS: 80053; 84443; 85025; 96372; 96413; 99214; A4222; J0897; J7050; J9271

== ENCOUNTER 2024-04-14 08:04 | Oncology outpatient (recurring) (ONCR) | payer MEDICAID, SELFPAY ==
[2024-04-14 08:42] LABS: Basophils % 0.3 %; Eosinophils % 0.2 %; Hematocrit 34.5 % (37-53); Lymphocytes # 2.9 10^3/uL (0.8-4.8); Lymphocytes % 19.9 %; Mean Corpuscular HGB Conc 29.6 g/dL (30-55); Mean Corpuscular Hemoglobin 24.5 pg (27-33); Mean Corpuscular Volume 82.9 fl (82-101); Mean Platelet Volume 10.9 fL (7.4-10.4); Monocytes # 1.1 10^3/uL (0.2-0.9); Monocytes % 7.4 %; Neutrophils # 10.53 10^3/uL (1.8-7.7); Neutrophils % 71.1 %; Nucleated Red Blood Cells % 0 %; Platelet Count 180 10^3/cmm (157-399); Red Blood Count 4.16 10^6/uL (3.85-5.65); Red Cell Distribution Width 16.3 % (12.1-15.1)
[2024-04-14 09:15] LABS: Alanine Aminotransferase 13 U/L (0-41); Albumin Level 3.6 g/dL (3.5-5.2); Alkaline Phosphatase 113 U/L (40-130); Anion Gap 17.2 (5-19); Aspartate Amino Transferase 16 U/L (0-40); Blood Urea Nitrogen 28 mg/dL (8-23); Calcium 8.5 mg/dL (8.5-10.5); Carbon Dioxide 25 mmol/L (22-29); Chloride 102 mmol/L (98-107); Glucose 102 mg/dL (65-115); Osmolality Calculated 296 mOsm/kg (285-295); Potassium 4.2 mmol/L (3.5-5.1); Sodium 140 mmol/L (136-145); Thyroid Stimulating Hormone 1.96 uIU/mL (0.27-4.20); Total Bilirubin 0.3 mg/dL (0.15-1.2); Total Protein 6.6 g/dL (6.6-8.7)
--- NOTE | 2024-04-14 11:01 | CT_ITS ---
WS: [id number] CT CHEST ANGIOGRAPHY WITH REFORMATS HISTORY: SOB TECHNIQUE: Contiguous axial images are obtained through the chest during arterial injection of intrav enous contrast. Images are reconstructed to evaluate the pulmonary arteries. MIP imaging also reviewe d. All CT scans at [facility] use at least one of these dose optimization techniques: automat ed exposure control; mA and/or kV adjustment per patient size (includes targeted exams where dose is matched to clinical indication); or iterative reconstruction. CONTRAST: Omnipaque 350; 100 mL IV. DLP: 211.11 mGy.cm COMPARISON: 11/18/2023 Good opacification of the pulmonary arteries. No filling defects. Very mild atherosclerosis aorta. No rmal size heart. No RIGHT heart strain. No pericardial effusion. No pneumothorax. Small RIGHT pleural effusion is increased in size since 11/18/2023. There is a dense area of consolidat ion with air bronchograms centered at the RIGHT hilum extending into the RIGHT middle and RIGHT lower lobe. Mass was identified on the prior study. There are now with vessels coursing through this area suggest this may be a combination of atelectasis and pneumonia. There is continued mediastinal and hi lar adenopathy. Large subcarinal lymph node 3.2 x 4.5 cm. Bilateral hilar adenopathy. No improvement in the adenopathy. Mild groundglass attenuation at the LEFT lung base with a subpleural nodule measuring 6 mm. LEFT subclavian Port-A-Cath. Mixed sclerotic and lytic lesions within several of the thoracic vertebral bodies including T5, T6 T9 , T10, T11 and T12. New sclerotic changes in the sternum. There are a few sclerotic changes in the ri bs which may be healing fractures. CT/CT angio chest PE protcl [id number] IMPRESSION: 1. No pulmonary embolism. 2. New small RIGHT pleural effusion. 3. Dense area of consolidation with air bronchograms at the RIGHT hilum. This is a site of prior neoplasm. Majority of the consolidation is pneumonia and ate lectasis. Underlying mass is not excluded more centrally. Overall the neoplasti c portion appears decreased. 4. There is continued mediastinal and hilar adenopathy. 5. Mixed lytic and sclerotic lesions within the thoracic spine and sternum minh picious for metastatic bone disease. Metastatic disease was also described on t he prior CT from 11/18/2023. The change in attenuation may be due to treatment of the bone metastasis or progression. There is no retropulsion or cord compressi on.
[2024-04-14] MEDS: iohexol 350 mg/mL 500 mL Btl (per mL) IV (11:19)
== END 2024-04-18 23:59 | disposition home or self-care (01) ==
PROVIDERS: Nurse Practitioner Family; PCP Family Medicine; Visit Provider Internal Medicine Medical Oncology
DX: C34.31 Malignant neoplasm of lower lobe, right bronchus or lung (principal); Z87.891 Personal history of nicotine dependence; C79.51 Secondary malignant neoplasm of bone; Z92.3 Personal history of irradiation; Z95.828 Presence of other vascular implants and grafts; J18.9 Pneumonia, unspecified organism; J98.11 Atelectasis; R59.9 Enlarged lymph nodes, unspecified; L27.1 Localized skin eruption due to drugs and medicaments taken internally; T45.1X5A Adverse effect of antineoplastic and immunosuppressive drugs, initial encounter
CPT/HCPCS: 71275; 80053; 84443; 85025; 99214

== ENCOUNTER 2024-05-19 13:15 | Oncology outpatient (recurring) (ONCR) | payer MEDICAID, SELFPAY ==
[2024-05-05 11:22] LABS: Basophils # 0.1 10^3/uL (0.0-0.1); Basophils % 0.3 %; Eosinophils # 0.2 10^3/uL (0.0-0.8); Hematocrit 32.1 % (37-53); Lymphocytes # 4.1 10^3/uL (0.8-4.8); Lymphocytes % 27.9 %; Mean Corpuscular HGB Conc 29.9 g/dL (30-55); Mean Corpuscular Hemoglobin 24.5 pg (27-33); Mean Corpuscular Volume 81.9 fl (82-101); Mean Platelet Volume 10.9 fL (7.4-10.4); Monocytes # 0.9 10^3/uL (0.2-0.9); Monocytes % 5.8 %; Neutrophils % 63.6 %; Nucleated Red Blood Cells % 0 %; Platelet Count 189 10^3/cmm (157-399); Red Blood Count 3.92 10^6/uL (3.85-5.65); Red Cell Distribution Width 17.2 % (12.1-15.1); White Blood Count 14.65 10^3/uL (3.29-11.43)
[2024-05-05 11:41] LABS: Alanine Aminotransferase 9 U/L (0-41); Albumin Level 3.4 g/dL (3.5-5.2); Alkaline Phosphatase 114 U/L (40-130); Anion Gap 14.7 (5-19); Aspartate Amino Transferase 17 U/L (0-40); Blood Urea Nitrogen 24 mg/dL (8-23); Calcium 8.1 mg/dL (8.5-10.5); Carbon Dioxide 26 mmol/L (22-29); Chloride 102 mmol/L (98-107); Globulin 2.9 g/dL (1.3-4.6); Glucose 111 mg/dL (65-115); Osmolality Calculated 291 mOsm/kg (285-295); Potassium 4.7 mmol/L (3.5-5.1); Sodium 138 mmol/L (136-145); Total Bilirubin 0.3 mg/dL (0.15-1.2); Total Protein 6.3 g/dL (6.6-8.7)
[2024-05-05] MEDS: denosumab 120 mg SDV SUBCUT (13:47)
--- NOTE | 2024-05-10 14:30 | MR_ITS ---
WS: [id number] MRI BRAIN WITH AND WITHOUT CONTRAST HISTORY: acute confusion COMPARISON: 11/23/2023, CT head 11/18/2023 TECHNIQUE: Multiplanar imaging performed through the brain with MultiHance 14 ml's IV. No acute infarcts are seen. Elliott-white matter differentiation is well preserved. Mild atrophy and mil d stable small vessel ischemic disease. No susceptibility artifacts or prior lacunar infarcts. Ventricles and extra-axial spaces are normal. Clivus and pituitary gland are normal. Visualized posterior fossa and brainstem are also normal. Postcontrast images are negative for masses or vascular malformations. Dural venous sinuses are normal. Paranasal sinuses: Well aerated with no significant disease. Mastoid air cells: Normal. Calvarium and scalp: Previously described enhancing bilateral parietal lesions towards the vertex has significantly improved since the prior study. Dural enhancement associated with the RIGHT parietal l esions is no longer present. There is minimal residual osseous enhancement in the LEFT parietal lesio n towards the vertex. No new lesions. MR/MR head wo/w con [id number] IMPRESSION: 1. No acute intracranial metastatic lesions are identified. 2. Mild atrophy and mild small vessel disease is stable. 3. Bilateral parietal calvarial metastatic lesions towards the vertex have sig nificantly improved. The RIGHT parietal dural enhancement is has resolved. Mini mal residual enhancement in the LEFT parietal bone.
--- NOTE | 2024-05-13 08:00 | PETR_ITS ---
PROCEDURE INFORMATION: Exam: PET/CT Skull Base to Mid-thigh Exam date and time: 05/13/2024 9:13 AM Age: 64 years old Clinical indication: Condition or disease; Primary cancer: Right lung cancer; Follow-up oncological assessment; Prior surgery; Surgery date: 6+ months; Surgery type: Port, RT throat; Additional info: Progression of disease shown on cta LABS AND CLINICAL REPORTS: Glucose: 80 mg/dl Treatment strategy for malignancy (PET staging): Restaging (PS) TECHNIQUE: Imaging protocol: Following at least four-hour fasting and following the injection of radiopharmaceutical, low dose CT images were obtained. Then, PET images were obtained. Attenuation corrected images were constructed using the CT scan. Fused images of PET and CT were reviewed. The standardized uptake values (SUV) reported below are maximum values within a region of interest, expressed in gm/ml. Exam includes orbital meatal line to mid-thigh. Radiopharmaceutical: 10.55 mCi F-18 FDG (Fluorodeoxyglucose), IV. Time of imaging post radiopharmaceutical administration: 47 minutes Injection site: Right antecubital COMPARISON: 1. PT PET skull to thigh SUBS [id number] 10/27/2023 1:[address] angio chest PE protcl [id number] 04/14/2024 11:08 AM FINDINGS: Tubes, catheters and devices: Left chest port terminates in the SVC. Brain: Visualized brain has normal physiologic uptake. Pharynx: No abnormal uptake. Larynx: No abnormal uptake. Lungs, pleura and trachea: Upper lobe predominant emphysematous change. Although difficult to discretely measure, approximately 1.7 cm posterior right perihilar mass on axial image 260 of series 202 shows SUV max of 14.0, previously larger area of avid FDG uptake with SUV max of 15.3. Similar right middle and lower lobe consolidations with air bronchograms showing moderate FDG uptake with SUV max of 7.1. Secretions within the right lower lobe bronchi. Mild patchy airspace and reticular opacities at the left lung base with 1 developed area showing low-level FDG uptake on axial image 226 of series 2 with SUV max of 3.4. Moderate right pleural effusion with mildly FDG avid pleural thickening. Heart: Normal physiologic uptake. Mediastinal space: No abnormal uptake. Liver: No abnormal uptake. Gallbladder and biliary ducts: No abnormal uptake. Pancreas: No abnormal uptake. Spleen: No abnormal uptake. Splenomegaly measures 15 cm in maximal dimension. Adrenal glands: No abnormal uptake. Kidneys and ureters: Normal physiologic uptake. Stomach and bowel: Mild irregular thickening at the cecum on axial image 144 of series 202 shows SUV max of 8.7. Colonic diverticulosis without findings of diverticulitis. Vasculature: No abnormal uptake. Atherosclerotic calcification, moderate at the aortoiliac arteries, without aortic aneurysm. Lymph nodes: Subcarinal node measures approximately 1.8 cm in the short axis and shows SUV max of 4.3, stable size previously showing SUV max of 11.9. Skeleton: Multiple vertebral bodies show heterogeneous sclerosis and decreased FDG uptake, particularly at the T10 and L4 vertebral bodies as well as the left superior pubic ramus. Greatest degree of osseous FDG uptake is at the left superior ramus showing SUV max of 7.8, previously 26.9. Interval mild superior compression deformity of the L2 vertebral body and moderate superior compression deformity of the L3 vertebral body. No FDG avidity or underlying lesion. Degenerative change along the spine and sacroiliac joints. Soft tissues: Linear FDG uptake along the neck musculature without underlying CT abnormality is likely physiologic or strain. Small fat containing right inguinal hernia. METRICS: Mediastinal blood pool: SUV max 3.0 Liver uptake: SUV max 3.0 PET/PET skull to thigh SUBS [id number] IMPRESSION: 1. Partial treatment response of right perihilar mass, mediastinal lymphadenopathy, and osseous metastatic disease. 2. Right middle and lower lobe consolidations similar to last month likely represent combination of atelectasis and pneumonia. 3. Moderate right pleural effusion with mildly FDG avid pleural thickening may be infectious or inflammatory, neoplastic thought less likely. 4. Mild patchy airspace and reticular opacities at the left lung base with 1 developed area showing low-level FDG uptake, favor infectious or inflammatory. 5. FDG avid mild irregular cecal thickening could be inflammatory or infectious, malignancy not excluded. Consider colonoscopy. 6. Interval nonacute mild compression deformity of the L2 vertebral body and moderate compression deformity of the L3 vertebral body.
[2024-05-19 13:48] LABS: Basophils # 0.1 10^3/uL (0.0-0.1); Basophils % 0.3 %; Eosinophils # 0.1 10^3/uL (0.0-0.8); Eosinophils % 0.6 %; Hematocrit 34.6 % (37-53); Lymphocytes # 3.3 10^3/uL (0.8-4.8); Lymphocytes % 20.8 %; Mean Corpuscular HGB Conc 30.1 g/dL (30-55); Mean Corpuscular Hemoglobin 24.4 pg (27-33); Mean Platelet Volume 10.5 fL (7.4-10.4); Monocytes % 6.3 %; Neutrophils # 11.14 10^3/uL (1.8-7.7); Neutrophils % 70.8 %; Nucleated Red Blood Cells % 0 %; Platelet Count 188 10^3/cmm (157-399); Red Blood Count 4.27 10^6/uL (3.85-5.65); Red Cell Distribution Width 17.4 % (12.1-15.1); White Blood Count 15.74 10^3/uL (3.29-11.43)
[2024-05-19 14:10] LABS: Alanine Aminotransferase 12 U/L (0-41); Albumin Level 3.6 g/dL (3.5-5.2); Alkaline Phosphatase 126 U/L (40-130); Anion Gap 14.5 (5-19); Aspartate Amino Transferase 17 U/L (0-40); Blood Urea Nitrogen 27 mg/dL (8-23); Calcium 8.3 mg/dL (8.5-10.5); Carbon Dioxide 27 mmol/L (22-29); Chloride 100 mmol/L (98-107); Creatinine Clr Calc Pharmacy 73.9464; Glucose 122 mg/dL (65-115); Osmolality Calculated 290 mOsm/kg (285-295); Potassium 4.5 mmol/L (3.5-5.1); Sodium 137 mmol/L (136-145); Total Bilirubin 0.3 mg/dL (0.15-1.2); Total Protein 6.6 g/dL (6.6-8.7)
== END 2024-05-19 23:59 | disposition home or self-care (01) ==
PROVIDERS: Internal Medicine Hematology & Oncology; PCP Family Medicine; Visit Provider Nurse Practitioner Family
DX: Z53.9 Procedure and treatment not carried out, unspecified reason (principal); C34.31 Malignant neoplasm of lower lobe, right bronchus or lung
CPT/HCPCS: 36591; 70553; 78815; 80053; 85025; 96372; 96523; 99214; A9552; A9577; J0897

== ENCOUNTER 2024-05-26 14:19 | Oncology outpatient (recurring) (ONCR) | payer MEDICAID, SELFPAY ==
[2024-05-26 14:32] VITALS: BP 110/73; PULSE 86; RESP 18; TEMP 36.5; O2SAT 91
[2024-05-26 15:16] LABS: Basophils # 0.1 10^3/uL (0.0-0.1); Basophils % 0.4 %; Eosinophils # 0.1 10^3/uL (0.0-0.8); Eosinophils % 0.7 %; Lymphocytes # 4.8 10^3/uL (0.8-4.8); Lymphocytes % 29.5 %; Mean Corpuscular Hemoglobin 24.2 pg (27-33); Mean Corpuscular Volume 80.5 fl (82-101); Mean Platelet Volume 10.6 fL (7.4-10.4); Monocytes # 0.8 10^3/uL (0.2-0.9); Neutrophils # 10.34 10^3/uL (1.8-7.7); Neutrophils % 63.2 %; Nucleated Red Blood Cells % 0 %; Platelet Count 215 10^3/cmm (157-399); Red Blood Count 4.47 10^6/uL (3.85-5.65); Red Cell Distribution Width 17.7 % (12.1-15.1); White Blood Count 16.34 10^3/uL (3.29-11.43)
[2024-05-26] MEDS: pembrolizumab 400 MG in sodium chloride 0.9% 250 ML 532 MG IV (16:10)
[2024-05-26 16:53] VITALS: BP 114/62; PULSE 79; RESP 79; TEMP 36.7
[2024-05-26 17:00] LABS: Alanine Aminotransferase 17 U/L (0-41); Albumin Level 3.7 g/dL (3.5-5.2); Alkaline Phosphatase 149 U/L (40-130); Anion Gap 15.6 (5-19); Aspartate Amino Transferase 19 U/L (0-40); Blood Urea Nitrogen 23 mg/dL (8-23); Calcium 8.8 mg/dL (8.5-10.5); Carbon Dioxide 30 mmol/L (22-29); Chloride 99 mmol/L (98-107); Globulin 2.7 g/dL (1.3-4.6); Glucose 106 mg/dL (65-115); Lactate Dehydrogenase 211 U/L (135-225); Osmolality Calculated 294 mOsm/kg (285-295); Potassium 4.6 mmol/L (3.5-5.1); Sodium 140 mmol/L (136-145); Total Bilirubin 0.3 mg/dL (0.15-1.2); Total Protein 6.4 g/dL (6.6-8.7)
== END 2024-05-26 23:59 | disposition home or self-care (01) ==
LOC: ONCMED 14:20
PROVIDERS: Internal Medicine Hematology & Oncology; PCP Family Medicine; Visit Provider Nurse Practitioner Family
DX: C34.31 Malignant neoplasm of lower lobe, right bronchus or lung; Z51.12 Encounter for antineoplastic immunotherapy; Z79.899 Other long term (current) drug therapy
CPT/HCPCS: 80053; 83615; 84443; 85025; 96413; A4222; J7050; J9271

== ENCOUNTER 2024-05-29 17:01 | Emergency (ER) | payer MEDICAID, SELFPAY ==
[2024-05-29 17:05] VITALS: BP 117/81; PULSE 83; RESP 18; TEMP 36.6; O2SAT 88; BMI 17.8
[2024-05-29 17:10] VITALS: BP 117/81; PULSE 86; O2SAT 95
--- NOTE | 2024-05-29 17:16 | XRR_ITS ---
PROCEDURE INFORMATION: Exam: XR Ribs Exam date and time: 05/29/2024 5:30 PM Age: 64 years old Clinical indication: Other: RT rib pain; Prior surgery; Surgery date: 6+ months; Surgery type: Lt port; Patient HX: RT anterior rib pain; SOB; Lung CA with bone mets per PT TECHNIQUE: Imaging protocol: Radiologic exam of the of the ribs. Views: 3 views. Bilateral ribs. COMPARISON: PT PET skull to thigh SUBS [id number] 05/13/2024 9:13 AM FINDINGS: Bones/joints: No evidence of acute displaced rib fracture. There are old right-sided rib fractures. Lungs: Emphysematous changes. Right hilar/infrahilar mass is better appreciable on recent PET-CT. Small-moderate right-sided pleural effusion and likely atelectasis. Left basilar airspace opacities raising the question of developing pneumonia. Soft tissues: Grossly unremarkable. Other: Left subclavian approach MediPort with tip terminating in the mid SVC. XR/XR ribs BI mn 4V w CXR1V [id number] IMPRESSION: 1. No evidence of acute displaced rib fracture. 2. Right hilar/infrahilar mass is better appreciable on recent PET-CT. 3. Small-moderate right-sided pleural effusion. 4. Left basilar airspace opacities raising the question of developing pneumonia.
[2024-05-29 17:40] VITALS: PULSE 80; O2SAT 85
[2024-05-29 18:03] VITALS: RESP 17; O2SAT 91
[2024-05-29] MEDS: ketorolac 30 mg/mL INJ 15 MG IVP (18:03)
[2024-05-29] MEDS: HYDROmorphone 1 mg/mL INJ 1 mL 0.5 MG IVP (18:03)
[2024-05-29] MEDS: ondansetron 2 mg/ML SDV 2 mL 4 MG IVP (18:03)
--- NOTE | 2024-05-29 18:03 | ECG_ITS ---
[facility] Test Date: 2024-05-29 Pat Name: Apolinar Nix Department: Room: Gender: Male Compliance Coordinator: : 1960 Requested By: Britton Almaraz Order Number: [id number] Ame MD: Dian Lane M.D. Measurements Intervals [place] Rate: 80 P: 52 HI: 146 QRS: 257 QRSD: 141 T: 32 QT: 380 QTc: 439 Interpretive Statements SINUS RHYTHM RIGHT AXIS DEVIATION [QRS AXIS > 100] RIGHT BUNDLE BRANCH BLOCK [120+ ms QRS DURATION, UPRIGHT V1, 40+ ms S IN I/aVL/V4/V5/V6] Compared to ECG 11/19/2023 00:17:43 Right-axis deviation now present Sinus bradycardia no longer present Myocardial infarct finding no longer present Electronically Signed On 06-02-2024 21:36:38 STRATIGRAPHY TEACHER by Dian Lane M.D. [email or web address]
[2024-05-29 18:10] VITALS: PULSE 73; O2SAT 95
--- NOTE | 2024-05-29 19:54 | W.ED.CHESTPA ---
HPI - Chest Pain General: Chief Complaint: Chest Pain Stated Complaint: chest pain Time Seen by Provider: 05/29/24 17:04 History of Present Illness: This patient is a 64-year-old white male who has a history of stage IV lung cancer with metastasis to the bones. He presents to the emergency department with chest pain. States has had the pain for 3 days. The pain started after he rolled over and has hospital bed at home and injured the anterior chest wall. Related Data Home Medications Medication Instructions Recorded Confirmed hydroxyzine HCl 10 mg tablet 10 mg PO TID PRN Anxiety 04/26/20 05/19/24 pravastatin 40 mg tablet 40 mg PO DAILY 04/26/20 05/19/24 Previous Rx's Medication Instructions Recorded seated wheeled walker #1 ea 10/06/23 wheelchair #1 ea 10/23/23 levothyroxine 88 mcg capsule 88 mcg PO DAILY #90 caps 10/26/23 olanzapine 5 mg tablet 5 mg PO DAILY severe nausea 2 days 11/30/23 #4 tabs lidocaine-prilocaine 2.5 %-2.5 % 1 applic topical .COMPLEX #30 grams 12/04/23 topical cream nystatin 100,000 unit/mL oral 4 ml PO QID tony 10 days #160 mL 12/04/23 suspension sennosides 8.6 mg-docusate sodium 3 tab-cap (3 x 8.6-50 mg) PO BID 12/21/23 50 mg capsule (Senna Plus) PRN constipation #180 caps fluconazole 100 mg tablet 100 mg PO DAILY #14 tabs 01/04/24 polyethylene glycol 3350 17 34 g PO DAILY #510 grams 01/04/24 gram/dose oral powder (Miralax) prednisone 10 mg tablet 10 mg PO DIRECTED #30 tabs 01/11/24 ondansetron 8 mg disintegrating See Rx Instructions .Route 02/03/24 tablet .COMPLEX #30 tabs famotidine 40 mg tablet See Rx Instructions .Route 02/18/24 .COMPLEX #30 tabs docusate sodium 100 mg capsule 100 mg PO BID #60 caps 03/22/24 (Colace) budesonide 160 mcg-glycopyr 9 2 inh inhalation BID #5.9 grams 03/24/24 mcg-formot 4.8 mcg/actuation HFA inhaler (Breztri Aerosphere) metoclopramide HCl 10 mg tablet See Rx Instructions .Route 03/29/24 .COMPLEX #120 tabs tiotropium bromide 2.5 2 puff inhalation DAILY #4 grams 04/08/24 mcg/actuation mist for inhalation (Spiriva Respimat) levofloxacin 750 mg tablet 750 mg PO DAILY 7 days #7 tabs 04/14/24 furosemide 40 mg tablet 40 mg PO QAM swelling in labs #60 05/05/24 tabs potassium chloride 10 mEq 10 meq PO BID #60 tabs 05/05/24 tablet,extended release morphine 100 mg tablet,extended 100 mg PO Q12H 30 days #60 tabs 05/09/24 release morphine 15 mg immediate release 15 mg PO Q6H PRN pain 30 days #120 05/09/24 tablet tabs sennosides 8.6 mg-docusate sodium 2 tab-cap (2 x 8.6-50 mg) PO BID 05/09/24 50 mg capsule (Senna Plus) PRN constipation #120 caps ibrutinib 140 mg tablet (Imbruvica) 140 mg PO DAILY #30 tabs 05/16/24 gabapentin 300 mg capsule See Rx Instructions .Route 05/23/24 .COMPLEX #90 caps miscellaneous medical supply #1 ea 05/23/24 Allergies Allergy/AdvReac Type Severity Reaction Status Date / Time adhesive tape Allergy ALGY-Bliste Verified 05/19/24 13:07 r Review of Systems General: Reports: 10 or more systems reviewed and unremarkable except in HPI and below Musc: Reports: other (Chest wall pain.) PFS ED PFSH: Medical History Port-A-Cath in place 11/17/23 Dr Gaston Pneumothorax on left Metastasis to bone Compression fracture Non-small cell lung cancer Degenerative joint disease of spine History of hepatitis C Completed treatment in 2014 Anxiety Depression Chronic insomnia Chronic obstructive pulmonary disease 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 - T1o, N2boh, M0 Chronic lymphocytic leukemia of B-cell type not having achieved remission Surgical History Status post surgical removal of malignant neoplasm of skin (2017) Excision of basal cell carcinoma from the left parietal scalp History of lymph node biopsy (07/15/12) Left axillary lymph node biopsy History of cervical spinal surgery (2007) Surgery for neck fracture History of back surgery (2017) History of laryngoscopy Hx of tonsillectomy (07/06/12) Right tonsillectomy, partial pharyngectomy, right base of tongue resection, and right modified radical neck dissection Family History Mother Hypertension Father Diabetes Cancer lymphoma Grandfather Cancer Paternal-unknown Other CAD (coronary artery disease) Hyperlipidemia Denies family history of Clotting disorder Dementia Psychiatric illness Chronic kidney disease (CKD) Suicide Anesthesia complication Bleeding disorder Lung disease Stroke Social History Smoking and tobacco/nicotine status: former use of tobacco/nicotine (quit 2013) Quit status (tobacco/nicotine): has quit using Year quit tobacco: 2013 Former quit date comment: 2 ppd X 41 years Alcohol intake: never Substance/Drug Use: current Substance/Drug use frequency: daily Other substance/drug use details: Medical Lives independently: Yes Marital status: Number of children: 3 Current occupational status: disabled Special nati needs: No Agree to transfusion: Yes Physical Exam Const: COMMON NORMALS: patient oriented x3 and no limitations GENERAL APPEARANCE: cooperative NUTRITIONAL APPEARANCE: cachectic HENMT: COMMON NORMALS: normocephalic, atraumatic, Normal nasal mucous membranes and turbinates present, moist oral mucous membranes and oropharynx normal HEAD & SCALP: normal to inspection, normocephalic and atraumatic FACE & SINUS: normal facial exam NOSE: Normal nasal mucous membranes and turbinates present Eye: COMMON NORMALS: Equal, round and reactive pupils present, EOMs intact bilaterally and conjunctivae normal GENERAL EYE: appearance normal, both eyes and all related structures CONJUNCTIVA: Yes conjunctivae normal PUPIL: Yes Equal, round and reactive pupils present Neck/C-Spine: COMMON NORMALS: supple and no JVD Chest: OTHER: Pain to palpation over the anterior chest wall diffusely. No crepitance or step-off deformities. No ecchymosis. Resp: COMMON NORMALS: normal respiratory effort and clear to auscultation bilaterally AUSCULTATION: clear to auscultation bilaterally Cardio: COMMON NORMALS: no JVD, regular rate, regular rhythm, No gallops present (Cardio), No murmurs present (Cardio) and No rub (Cardio) RATE: regular rate RHYTHM: regular rhythm GI: COMMON NORMALS: Normal to inspection, nondistended, normoactive bowel sounds present, Soft to palpation and non-tender AUSCULTATION: Yes normoactive bowel sounds PALPATION: Yes Soft to palpation : COMMON NORMALS: Yes no CVA tenderness BLADDER/KIDNEY EXAM: Yes no CVA tenderness Back/Pelvis: COMMON NORMALS: no CVA tenderness and thoracic and lumbar spine normal to inspection Extremity: COMMON NORMALS: normal to inspection Neuro: COMMON NORMALS: patient oriented x3 and CN's II-XII intact bilaterally Psych: COMMON NORMALS: mental status grossly normal, Normal thought process present and cooperative THOUGHT PROCESS: Normal thought process present Skin: COMMON NORMALS: no rashes or lesions noted, turgor normal and no jaundice GENERAL SKIN EXAM: no rashes or lesions noted and turgor normal Course Vital Signs: Vital signs: Vital Signs Temperature 97.9 F 05/29/24 17:05 Pulse Rate 73 05/29/24 18:10 Respiratory Rate 17 05/29/24 18:03 Blood Pressure 117/81 05/29/24 17:10 Pulse Oximetry 95 05/29/24 18:10 Oxygen Delivery Me thod Nasal Cannula 05/29/24 18:10 Oxygen Flow Rate 2 05/29/24 18:10 MDM - Chest Pain Medical Decision Making X-rays of the chest and bilateral ribs were read by the radiologist. No fractures. Patient was given injections of Toradol and Dilaudid in the emergency department for his pain. Patient is on 200 mg of morphine extended release per day. I recommended he contact his oncologist or primary care provider for any further recommendations regarding pain management. He was discharged with his in stable condition. Lab Data Radiology Impressions Ribs w/Chest X-Ray 05/29/24 17:16 IMPRESSION: 1. No evidence of acute displaced rib fracture. 2. Right hilar/infrahilar mass is better appreciable on recent PET-CT. 3. Small-moderate right-sided pleural effusion. 4. Left basilar airspace opacities raising the question of developing pneumonia. All radiology interpretation(s) finalized by discharge Discharge Plan Discharge Patient Disposition: Home Clinical Impression: Chest wall contusion Qualifiers: Encounter type: initial encounter Laterality: unspecified laterality Qualified Code(s): S20.219A - Contusion of unspecified front wall of thorax, initial encounter Condition: Stable Prescriptions: No Action hydroxyzine HCl 10 mg tablet 10 mg PO TID PRN (Reason: Anxiety) pravastatin 40 mg tablet 40 mg PO DAILY polyethylene glycol 3350 [Miralax] 17 gram/dose powder 34 g PO DAILY Qty: 510 3RF fluconazole 100 mg tablet 100 mg PO DAILY Qty: 14 0RF (DME) wheelchair See Rx Instructions .Route .MEDSUPPLY Qty: 1 0RF Rx Instructions: As directed Senna Plus 8.6-50 mg capsule 3 tab-cap PO BID PRN (Reason: constipation) Qty: 180 0RF Spiriva Respimat 2.5 mcg/actuation mist 2 puff inhalation DAILY Qty: 4 2RF levofloxacin 750 mg tablet 750 mg PO DAILY 7 Days Qty: 7 0RF furosemide 40 mg tablet 40 mg PO QAM Qty: 60 3RF potassium chloride 10 mEq tablet extended release 10 meq PO BID Qty: 60 3RF olanzapine 5 mg tablet 5 mg PO DAILY 2 Days Qty: 4 3RF prednisone 10 mg tablet 10 mg PO DIRECTED Qty: 30 3RF Rx Instructions: 2 tabs BID x3 days 1 tab BID x3 days 1 tab daily (DME) seated wheeled walker See Rx Instructions .Route .MEDSUPPLY Qty: 1 0RF Rx Instructions: As directed levothyroxine 88 mcg capsule 88 mcg PO DAILY Qty: 90 2RF nystatin 100,000 unit/mL suspension 4 ml PO QID 10 Days Qty: 160 0RF Rx Instructions: swish in mouth then swallow lidocaine-prilocaine 2.5-2.5 % cream 1 applic topical .COMPLEX Qty: 30 3RF Rx Instructions: Apply quarter size amount 30-45 minutes prior to port access, cover with cellophane ondansetron 8 mg tablet,disintegrating See Rx Instructions .ROUTE .COMPLEX Qty: 30 1RF Dose Instruction: TAKE ONE TABLET BY MOUTH DAILY NEEDED FOR NAUSEA AND VOMITING; STOP TABLET PATIENT NEEDING ODT Rx Instructions: TAKE ONE TABLET BY MOUTH DAILY NEEDED FOR NAUSEA AND VOMITING; STOP TABLET PATIENT NEEDING ODT famotidine 40 mg tablet See Rx Instructions .ROUTE .COMPLEX Qty: 30 6RF Dose Instruction: TAKE ONE TABLET BY MOUTH DAILY Rx Instructions: TAKE ONE TABLET BY MOUTH DAILY docusate sodium [Colace] 100 mg capsule 100 mg PO BID Qty: 60 0RF Breztri Aerosphere 160-9-4.8 mcg/actuation HFA aerosol inhaler 2 inh inhalation BID Qty: 5.9 3RF metoclopramide HCl 10 mg tablet See Rx Instructions .ROUTE .COMPLEX Qty: 120 2RF Dose Instruction: TAKE 1 TABLET BY MOUTH THREE TIMES DAILY BEFORE MEALS & AT BEDTIME FOR NAUSEA Rx Instructions: TAKE 1 TABLET BY MOUTH THREE TIMES DAILY BEFORE MEALS & AT BEDTIME FOR NAUSEA morphine 15 mg tablet 15 mg PO Q6H PRN (Reason: pain) 30 Days Qty: 120 0RF Hold Instructions: Resume on 11/20/23. morphine 100 mg tablet extended release 100 mg PO Q12H 30 Days Qty: 60 0RF Hold Instructions: Resume on 11/20/23. Senna Plus 8.6-50 mg capsule 2 tab-cap PO BID PRN (Reason: constipation) Qty: 120 0RF Imbruvica 140 mg tablet 140 mg PO DAILY Qty: 30 0RF (DME) miscellaneous medical supply Misc See Rx Instructions .Route Qty: 1 0RF Rx Instructions: Semi-electric hospital bed gabapentin 300 mg capsule See Rx Instructions .ROUTE .COMPLEX Qty: 90 5RF Dose Instruction: TAKE ONE CAPSULE BY MOUTH THREE TIMES A DAY Rx Instructions: TAKE ONE CAPSULE BY MOUTH THREE TIMES A DAY Discharge Orders: Discharge ED (Routine); Ordered 05/29/24 Ordered By: Britton Almaraz Referrals: Braxton Diamond MD [Primary Care Provider] - Patient Instructions: Chest Contusion (ED), Opioid Safety, Pain Management Activity Restrictions/Additional Instructions: Contact your oncologist or primary care physician for further pain management. Coding Level of Care Code ED Coil Winding Machines Set Up Mechanic for Trace Rene
[2024-05-29 20:07] VITALS: BP 132/65; PULSE 85; O2SAT 92
== END 2024-05-29 20:08 | disposition home or self-care (01) ==
PROVIDERS: Emergency Provider Emergency Medicine; PCP Family Medicine
DX: S20.219A Contusion of unspecified front wall of thorax, initial encounter (principal); X58.XXXA Exposure to other specified factors, initial encounter; Z87.891 Personal history of nicotine dependence; Z85.118 Personal history of other malignant neoplasm of bronchus and lung
CPT/HCPCS: 71111; 93005; 96374; 96375; 99284; J1171; J1885; J2405